=== PATIENT | male | born 1970 | race Two or more races ===

== ENCOUNTER 2023-04-05 20:30 | Inpatient (IN) ==
[2023-04-05 21:12] LABS: Basophils # (auto) 0.02 K/uL (0.00-0.20); Basophils % (auto) 0.2 %; Hematocrit (blood only) 41.4 % (42.0-52.0); Hemoglobin 13.4 g/dl (14.0-18.0); Immature Granulocytes # (auto) 0.03 K/uL (0.01-0.20); Immature Granulocytes % (auto) 0.3 %; Lymphocytes # (auto) 2.11 K/uL (1.20-3.40); Lymphocytes % (auto) 22.8 %; Mean Corpuscular Hemoglobin 26.9 pg (25.0-34.0); Mean Corpuscular Hgb Conc 32.4 g/dL (32.0-36.0); Mean Corpuscular Volume 83.1 fL (80.0-100.0); Mean Platelet Volume 9.3 fL (9.4-12.4); Monocytes # (auto) 0.51 K/uL (0.11-0.59); Monocytes % (auto) 5.5 %; Neutrophils # (auto) 6.59 K/uL (1.40-6.50); Neutrophils % (auto) 71.2 %; Platelet Count 356 K/uL (130-400); RDW Coefficient of Variation 15.8 % (11.5-14.5); RDW Standard Deviation 46.8 fL (36.4-46.3); Red Blood Count 4.98 M/uL (4.70-6.10); White Blood Count 9.26 K/ul (4.8-10.8)
[2023-04-05 21:16] LABS: Appearance Urine Clear (Clear); Bacteria Urine Automated Negative (Negative); Bilirubin Urine Negative (Negative); Blood Urine Trace (Negative); Color Urine Yellow; Epithelial Cell Urine Auto 0-5 /lpf (0-5); Glucose Urine UA 2+ (Negative); Ketones Urine 1+ (Negative); Leukocyte Esterase Urine Negative (Negative); Nitrite Urine Negative (Negative); Protein Urine 1+ (Negative); RBC Urine Automated 0-4 /hpf (0-4); Urobilinogen Urine Negative (Negative)
[2023-04-05 21:47] LABS: Amphetamines+Metham, Urine Neg (Neg); Barbiturates, Urine Neg (Neg); Benzodiazepine, Urine Neg (Neg); Cocaine, Urine Neg (Neg); MDMA (Ecstacy), Urine Neg (Neg); Marijuana, Urine Neg (Neg); Methadone, Urine Neg (Neg); Opiate, Urine Neg (Neg); Phencyclidine, Urine Neg (Neg)
[2023-04-05 21:48] LABS: Acetaminophen < 3 ug/ml (10-30); Salicylate < 3.0 mg/dl (3.0-30)
[2023-04-05] MEDS: NICOTINE 21 MG/24 HR TDSY TD STA (21:50)
[2023-04-05 21:56] LABS: Albumin Globulin Ratio 1.4 (0.9-2); Albumin Level 4.6 gm/dl (3.4-5.0); BUN Creatinine Ratio 7.7 (10-20); Bilirubin,Total 0.5 mg/dl (0.2-1.0); Calcium 9.7 mg/dl (8.6-10.3); Creatinine Clr Calc Pharmacy 102.4 ml/min; Est GFR (African American) 119.4 ml/min; Est GFR (Non-African American) 103.1 ml/min; Globulin 3.2 gm/dl (2.5-4.0); Thyroid Stimulating Hormone 0.418 uIu/ml (0.300-4.500); Total Protein 7.8 gm/dl (6.0-8.3)
[2023-04-05 22:03] LABS: Potassium 4.3 mmol/L (3.5-5.1)
--- NOTE | 2023-04-05 22:44 | Emergency Department Note ---
Impression & Plan Alcohol intoxication, Alcohol withdrawal, Acute hyponatremia ED Provider Note HISTORY OF PRESENT ILLNESS: Patient is a 52-year-old male presenting with depression and alcohol withdrawal. 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 He has not taken anything for his depression. He states that he also feels like he is withdrawing from alcohol. He states he drinks a 12 pack a day. His last attempt at sobriety was in January 2023. He denies any history of withdrawal seizures. He feels like he is withdrawing secondary to feeling nauseous and having tremors. He reports his last drink was yesterday. ROS: as above PHYSICAL EXAM: Constitutional: Patient appears in no acute distress. Patient smells of alcohol. He is answering questions in full and complete sentences, but does have intermittent slurring of his words HENT: Head: Normocephalic and atraumatic. Eyes: EOMI, PERRL Mouth/Throat: Mucous membranes moist. Neck: Trachea midline. Neck supple. Cardiovascular: Tachycardic with regular rhythm. No murmurs, rubs or gallops. Intact distal pulses. Pulmonary/Chest: No respiratory distress. Breath sounds clear and equal bilaterally. No wheezes or rales. Abdominal: Abdomen soft, no tenderness, rebound or guarding. Musculoskeletal: No edema, tenderness or deformity noted. Skin: Warm and dry. No rash, erythema, pallor or cyanosis Psychiatric: Appropriate mood and affect for situation. Neurological: Alert and keenly responsive. CN II-XII grossly intact, moving all extremities equally and fully. MDM: - Vitals signs showed tachycardia - History obtained via patient. Patient presents with depression and alcohol withdrawal. 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 He has not taken anything for his depression. He states that he feels like he is withdrawing from alcohol. He states he drinks a 12 pack a day. Last attempt at sobriety was in January 2023. He denies any history of withdrawal seizures. However, he reports he feels very nauseous and shaky at this moment. He reports his last drink was yesterday - Chronic conditions affecting care: HTN; diabetes; alcoholism - Differential diagnoses include, but are not limited to: Alcohol intoxication; drug intoxication; electrolyte abnormality; UTI; depression - Order placed for continuous cardiac monitoring. At this time, monitor showed rate of 110 bpm with normal sinus rhythm, per my interpretation. - External medical records reviewed. - Laboratory workup interpreted by myself showed normal WBC; hyponatremia (Na 129 - likely secondary to alcoholism); elevated anion gap (21); hyperglycemia (glucose 250); elevated AST; negative salicylate, acetaminophen level; elevated ethanol level (283.5) - Patient's alcohol withdrawal severity score was a 4 on arrival. He was significantly tachycardic. Given 500 cc of fluid. Repeat alcohol severity score was up to an 8 and patient complaining of significant withdrawal and feeling nauseous. He was given 1 mg of IV Ativan and 4 mg of IV Zofran. He was also given a nicotine patch given his history of smoking a pack a day - UA negative for infection - UDS negative - COVID negative - Patient is not actively suicidal or homicidal at this time. I did discuss results with the patient. He reports that he would like to get sober. He has not attempted outpatient sobriety yet. However, given that the patient's ethanol level is significantly elevated and he is already required Ativan for withdrawal symptoms, believe that inpatient detox would be appropriate. Patient was agreeable to this plan. - Discussion was had with resident care supervisor about patient's case and need for admission - Hospitalist consulted for admission - [facility] ASSESSMENT AND PLAN: Diagnosis: Alcohol intoxication; alcohol withdrawal; hyponatremia Plan: Admit Past Med/Surg History Social History Smoking Status: Former smoker Allergies Allergies Allergy/AdvReac Type Severity Reaction Status Date / Time No Known Allergies Allergy Unverified 04/05/23 21:51 Home Meds Home Medications Medication Instructions Recorded Confirmed lisinopril 40 mg tablet 40 mg PO BID 04/05/23 04/05/23 metformin 1,000 mg PO BID 04/05/23 04/05/23 Results & Data (ED) Vital Signs Vital Signs - 24 hr 04/05/23 20:45 04/05/23 20:51 04/05/23 21:00 Temperature 37.3 C Temperature Source Oral Pulse Rate 110 H 112 H 116 H Pulse Rate [Apical] Pulse Rate from SpO2 Sensor 111 H 114 H Respiratory Rate 20 18 26 H Respiratory Effort / Characteristics Non-Labored Spontaneous Respiratory Depth Normal Respiratory Pattern Regular Blood Pressure 130/86 Blood Pressure [Left Arm] Blood Pressure Mean 100 Blood Pressure Mean [Left Arm] Pulse Oximetry 92 95 98 Oxygen Delivery Method Room Air Sepsis Recent Fever Within 48 Hours No Sepsis New/Unexplained Change in Mental Status No Sepsis Action Taken by Nursing No Action Required 04/05/23 21:04 04/05/23 21:30 04/05/23 22:00 Temperature Temperature Source Pulse Rate 114 H 114 H 114 H Pulse Rate [Apical] Pulse Rate from SpO2 Sensor 114 H Respiratory Rate 17 17 Respiratory Effort / Characteristics Respiratory Depth Respiratory Pattern Blood Pressure Blood Pressure [Left Arm] Blood Pressure Mean Blood Pressure Mean [Left Arm] Pulse Oximetry 89 L Oxygen Delivery Method Sepsis Recent Fever Within 48 Hours Sepsis New/Unexplained Change in Mental Status Sepsis Action Taken by Nursing 04/05/23 22:30 04/05/23 23:00 04/05/23 23:30 Temperature 37.1 C Temperature Source Oral Pulse Rate 107 H 119 H Pulse Rate [Apical] 112 H Pulse Rate from SpO2 Sensor Respiratory Rate 18 19 22 Respiratory Effort / Characteristics Respiratory Depth Respiratory Pattern Blood Pressure 135/89 Blood Pressure [Left Arm] 149/102 H Blood Pressure Mean 104 Blood Pressure Mean [Left Arm] 117 Pulse Oximetry 96 98 Oxygen Delivery Method Room Air Room Air Sepsis Recent Fever Within 48 Hours Sepsis New/Unexplained Change in Mental Status Sepsis Action Taken by Nursing 04/06/23 00:00 04/06/23 01:47 04/06/23 02:00 Temperature Temperature Source Pulse Rate 108 H Pulse Rate [Apical] 105 H 103 H Pulse Rate from SpO2 Sensor Respiratory Rate 20 16 Respiratory Effort / Characteristics Respiratory Depth Respiratory Pattern Blood Pressure Blood Pressure [Left Arm] 138/97 112/89 Blood Pressure Mean Blood Pressure Mean [Left Arm] 110 96 Pulse Oximetry 100 91 Oxygen Delivery Method Room Air Room Air Sepsis Recent Fever Within 48 Hours Sepsis New/Unexplained Change in Mental Status Sepsis Action Taken by Nursing Laboratory Data 04/05/23 20:50 04/05/23 20:50 Lab Results 04/05/23 04/05/23 04/05/23 Range/Units 20:40 20:50 Unknown WBC 9.26 (4.8-10.8) K/ul RBC 4.98 (4.70-6.10) M/uL Hgb 13.4 L (14.0-18.0) g/dl Hct 41.4 L (42.0-52.0) % MCV 83.1 (80.0-100.0) fL MCH 26.9 (25.0-34.0) pg MCHC 32.4 (32.0-36.0) g/dL RDW Std Deviation 46.8 H (36.4-46.3) fL RDW Coeff of Genevieve 15.8 H (11.5-14.5) % Plt Count 356 (130-400) K/uL MPV 9.3 L (9.4-12.4) fL Immature Gran % (Auto) 0.3 % Neut % (Auto) 71.2 % Lymph % (Auto) 22.8 % [place] % (Auto) 5.5 % Eos % (Auto) 0.0 % Baso % (Auto) 0.2 % Neut # (Auto) 6.59 H (1.40-6.50) K/uL Lymph # (Auto) 2.11 (1.20-3.40) K/uL [place] # (Auto) 0.51 (0.11-0.59) K/uL Eos # (Auto) 0.00 (0.00-0.50) K/uL Baso # (Auto) 0.02 (0.00-0.20) K/uL Immature Gran # (Auto) 0.03 (0.01-0.20) K/uL Sodium 129 L (136-145) mmol/L Potassium 4.3 (3.5-5.1) mmol/L Chloride 87 L (98-107) mmol/L Carbon Dioxide 21 (21-32) mmol/L Anion Gap 21 H (3-11) BUN 6 (6-23) mg/dl Creatinine 0.78 (0.6-1.4) mg/dl Est Cr Clr Drug Dosing 102.4 ml/min Est GFR ( Amer) 119.4 ml/min Est GFR (Non-Af Amer) 103.1 ml/min BUN/Creatinine Ratio 7.7 L (10-20) Glucose 250 H (70-99(Fasting)) mg/dl Calcium 9.7 (8.6-10.3) mg/dl Total Bilirubin 0.5 (0.2-1.0) mg/dl AST 40 H (13-39) U/L ALT 44 (7-52) U/L Alkaline Phosphatase 52 (34-104) U/L Total Protein 7.8 (6.0-8.3) gm/dl Albumin 4.6 (3.4-5.0) gm/dl Globulin 3.2 (2.5-4.0) gm/dl Albumin/Globulin Ratio 1.4 (0.9-2) TSH 0.418 (0.300-4.500) uIu/ml Urine Color Yellow Urine Appearance Clear (Clear) Urine pH 5.0 (4.5-7.5) Ur Specific [place] 1.010 (1.000-1.030) Urine Protein 1+ H (Negative) Urine Glucose (UA) 2+ H (Negative) Urine Ketones 1+ H (Negative) Urine Blood Trace H (Negative) Urine Nitrite Negative (Negative) Urine Bilirubin Negative (Negative) Urine Urobilinogen Negative (Negative) Ur Leukocyte Esterase Negative (Negative) Urine WBC (Auto) 1-5 (0-5) /hpf Urine RBC (Auto) 0-4 (0-4) /hpf U Hyaline Cast (Auto) 1-5 (0-5) /lpf U Epithel Cells (Auto) 0-5 (0-5) /lpf Urine Bacteria (Auto) Negative (Negative) Salicylates < 3.0 L (3.0-30) mg/dl Urine Opiates Screen Neg (Neg) Ur Methadone, Qual Neg (Neg) Acetaminophen < 3 L (10-30) ug/ml Urine Barbiturates Neg (Neg) Ur Phencyclidine (PCP) Neg (Neg) U Amphetamin/Meth Scrn Neg (Neg) MDMA (Ecstasy) Screen Neg (Neg) U Benzodiazepines Scrn Neg (Neg) Ur Cocaine Metabolite Neg (Neg) U Marijuana (THC) Screen Neg (Neg) Ethyl Alcohol mg/dL 283.5 H (<10.0) mg/dl SARS-CoV-2, RNA, NAAT NEGATIVE (NEGATIVE) Administered Medications Discontinued Medications Sodium Chloride (Nss) 500 mls @ 999 mls/hr IV .Q31M ONE Stop: 04/05/23 23:37 Last Infusion: 04/05/23 23:56 Dose: Infused Documented By: Admin: 04/05/23 23:20 Dose: 999 mls/hr Documented By: TRINO Lorazepam 1 mg/ Syringe 1 mls @ 2 mls/min IV ONE PRN; Protocol PRN Reason: EtoH Withdrawal AWSS 6-10 Last Admin: 04/05/23 23:55 Dose: 2 mls/min Documented By: AN Lorazepam (Lorazepam 1 Mg/1 Ml Syr Ed Inj Use) Confirm Administered Dose 1 mg .ROUTE .STK-MED ONE Stop: 04/05/23 23:54 Last Admin: 04/05/23 23:56 Dose: Not Given Documented By: AN Nicotine (Nicotine 21 Mg/24 Hr Tdsy) 21 mg TD NOW STA Stop: 04/05/23 21:05 Last Admin: 04/05/23 21:50 Dose: 21 mg Documented By: CELESTE Ondansetron HCl (Ondansetron Inj 2 Mg/Ml 2 Ml Vial) 4 mg IV NOW STA Stop: 04/05/23 23:48 Last Admin: 04/05/23 23:55 Dose: 4 mg Documented By: AN Discharge Plan Visit Data Chief Complaint: Mental Health Evaluation Stated Complaint: DEPRESSION/EMOTIONAL/ALCOHOL USE ED Provider: Haleigh Caballero Discharge Problem: Alcohol intoxication, Alcohol withdrawal, Acute hyponatremia Forms Stand Alone Forms: [facility], Suicide Prevention Resources Prescriptions Prescriptions: No Action lisinopril 40 mg Tablet 40 mg PO BID metformin 1,000 mg PO BID Referrals Referrals: PCP,NO [Primary Care Provider] -
[2023-04-05] MEDS: SODIUM CHLORIDE 0.9% 500 ML IV ONE (23:20)
[2023-04-05] MEDS: ONDANSETRON INJ 2 MG/ML 2 ML VIAL IV STA (23:55)
[2023-04-05] MEDS: LORazepam 1 MG in SYRINGE 0.5 ML IV PRN (23:55)
[2023-04-05] MEDS: LORazepam 1 MG/1 ML SYR ED Inj Use ONE (23:56)
[2023-04-06 03:04] LABS: Magnesium 1.8 mg/dl (1.7-2.4)
[2023-04-06 03:05] LABS: INR 0.9 (0.9-1.1)
--- NOTE | 2023-04-06 03:21 | History & Physical Report ---
Date of Service April 06, 2023 Assessment & Plan (1) Alcohol withdrawal: Plan: HTN, stable Hyponatremia in the setting of alcohol abuse and high lisinopril home dose, unknown duration Anemia, unknown duration, patient unaware of prior issues DM2 insulin requiring, unknown baseline control mood disorder, patient admits to severe depression not currently on maintenance medications, denies suicidality ongoing tobacco abuse Medical telemetry ANASTASIA S, DT precautions Hyponatremia workup hold VERONICA inhibitor for now Anemia workup Basal bolus insulin, ISS BG goal 1 10-1 40, carb count coverage, check hemoglobin A1c Psych consult re: severe depression Nicotine patch DVT prophylaxis. SCDs for now until GI bleed ruled out with Hemoccult given heartburn symptoms Full code Text document was generated using [employer] voice recognition software. It may contain grammatical or spelling errors. Kindly contact undersigned for clarification of any documentation item in question. History of Present Illness Chief Complaint: Depression, alcohol withdrawal Primary Care Provider: NO PCP History obtained from patient and records. Medical history significant for HTN, DM2 insulin requiring, mood disorder, ongoing tobacco/alcohol abuse. 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 Patient cannot recall PCP name from [place], [place]. Patient has been in [place] for a week now because his truck was being serviced. Patient has been battling depression since [place] after family stressors. Denies suicidality. Drinks alcohol to forget. Patient's truck broke down in town yesterday. He walked 2 miles to a nearby gas station. EMS summoned the gas station because patient needed help for depression and alcohol withdrawal. Patient denies headache, SOB, abdominal pain, black/bloody stools, hematuria symptoms. Chest pain symptoms described as heartburn experienced at the ER. No prior history of alcohol withdrawal seizures. 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 Allergies Allergy/AdvReac Type Severity Reaction Status Date / Time No Known Allergies Allergy Unverified 04/05/23 21:51 Home Medications Medication Instructions Recorded Confirmed Type lisinopril 40 mg tablet 40 mg PO BID 04/05/23 04/05/23 History metformin 1,000 mg PO BID 04/05/23 04/05/23 History Past Med/Surg History Social History Smoking Status: Current every day smoker Tobacco Type: Cigarettes Cigarettes Per Day: 1 ppd; Do You Dip or Chew Tobacco: No; Hx Alcohol Use: Yes Alcohol type: beer Hx Substance Use: No Preferred Language: Luxembourgish Communication Ability: Effective Integrated Pest Management Technician Required: No Beliefs That Will Affect Care: Quaker Quaker Beliefs: Pentecostalism Current Living Situation: Other Current Living Situation Comment: Resides in his truck as 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 Other Information That Helps Us Care for You: No Feels Safe at Home: Yes Safety Concerns: Feels Safe At This Time Review of Systems Review of Systems: As per HPI, all other systems reviewed and negative Physical Exam Physical Exam: GENERAL: Slightly anxious, tremulous, no respiratory distress SKIN: Pallor, warm HEENT: Partial alopecia, pale palpebral conjunctivae, no ptosis, dry buccal mucosa NECK : Supple, no tenderness CHEST : CTA, no tenderness HEART : Tachycardic, no obvious murmurs ABDOMEN: Some distention, nontender RECTAL : Refused EXTREMITIES : No LE swelling/tenderness, no other conspicuous deformities noted NEUROLOGIC : Coherent, no facial asymmetry, tremulous Results & Data Results & Data Vital Signs (Past 12 Hours) Vital Signs Temp Pulse Pulse Resp BP BP Pulse Ox 04/06/23 02:00 103 H 16 112/89 91 04/06/23 01:47 108 H 04/06/23 00:00 105 H 20 138/97 100 04/05/23 23:30 37.1 C 112 H 22 149/102 H 98 04/05/23 23:00 119 H 19 135/89 96 04/05/23 22:30 107 H 18 04/05/23 22:00 114 H 17 04/05/23 21:30 114 H 17 89 L 04/05/23 21:04 114 H 04/05/23 21:00 116 H 26 H 98 04/05/23 20:51 112 H 18 95 04/05/23 20:45 37.3 C 110 H 20 130/86 92 O2 Del Method 04/06/23 02:00 Room Air 04/06/23 01:47 04/06/23 00:00 Room Air 04/05/23 23:30 Room Air 04/05/23 23:00 Room Air 04/05/23 22:30 04/05/23 22:00 04/05/23 21:30 04/05/23 21:04 02/09/24 21:00 04/05/23 20:51 04/05/23 20:45 Room Air Laboratory Results Laboratory Results WBC 9.26 K/ul (4.8-10.8) 04/05/23 20:50 RBC 4.98 M/uL (4.70-6.10) 04/05/23 20:50 Hgb 13.4 g/dl (14.0-18.0) L 04/05/23 20:50 Hct 41.4 % (42.0-52.0) L 04/05/23 20:50 MCV 83.1 fL (80.0-100.0) 04/05/23 20:50 MCH 26.9 pg (25.0-34.0) 04/05/23 20:50 MCHC 32.4 g/dL (32.0-36.0) 04/05/23 20:50 RDW Std Deviation 46.8 fL (36.4-46.3) H 04/05/23 20:50 RDW Coeff of Genevieve 15.8 % (11.5-14.5) H 04/05/23 20:50 Plt Count 356 K/uL (130-400) 04/05/23 20:50 MPV 9.3 fL (9.4-12.4) L 04/05/23 20:50 Immature Gran % (Auto) 0.3 % 04/05/23 20:50 Neut % (Auto) 71.2 % 04/05/23 20:50 Lymph % (Auto) 22.8 % 04/05/23 20:50 [place] % (Auto) 5.5 % 04/05/23 20:50 Eos % (Auto) 0.0 % 04/05/23 20:50 Baso % (Auto) 0.2 % 04/05/23 20:50 Neut # (Auto) 6.59 K/uL (1.40-6.50) H 04/05/23 20:50 Lymph # (Auto) 2.11 K/uL (1.20-3.40) 04/05/23 20:50 [place] # (Auto) 0.51 K/uL (0.11-0.59) 04/05/23 20:50 Eos # (Auto) 0.00 K/uL (0.00-0.50) 04/05/23 20:50 Baso # (Auto) 0.02 K/uL (0.00-0.20) 04/05/23 20:50 Immature Gran # (Auto) 0.03 K/uL (0.01-0.20) 04/05/23 20:50 PT 10.0 Seconds (9.0-12.0) 04/05/23 20:50 INR 0.9 (0.9-1.1) 04/05/23 20:50 Sodium 129 mmol/L (136-145) L 04/05/23 20:50 Potassium 4.3 mmol/L (3.5-5.1) 04/05/23 20:50 Chloride 87 mmol/L (98-107) L 04/05/23 20:50 Carbon Dioxide 21 mmol/L (21-32) 04/05/23 20:50 Anion Gap 21 (3-11) H 04/05/23 20:50 BUN 6 mg/dl (6-23) 04/05/23 20:50 Creatinine 0.78 mg/dl (0.6-1.4) 04/05/23 20:50 Est Cr Clr Drug Dosing 102.4 ml/min 04/05/23 20:50 Est GFR ( Amer) 119.4 ml/min 04/05/23 20:50 Est GFR (Non-Af Amer) 103.1 ml/min 04/05/23 20:50 BUN/Creatinine Ratio 7.7 (10-20) L 04/05/23 20:50 Glucose 250 mg/dl (70-99(Fasting)) H 04/05/23 20:50 Calcium 9.7 mg/dl (8.6-10.3) 04/05/23 20:50 Magnesium 1.8 mg/dl (1.7-2.4) 04/05/23 20:50 Total Bilirubin 0.5 mg/dl (0.2-1.0) 04/05/23 20:50 AST 40 U/L (13-39) H 04/05/23 20:50 ALT 44 U/L (7-52) 04/05/23 20:50 Alkaline Phosphatase 52 U/L (34-104) 04/05/23 20:50 Total Protein 7.8 gm/dl (6.0-8.3) 04/05/23 20:50 Albumin 4.6 gm/dl (3.4-5.0) 04/05/23 20:50 Globulin 3.2 gm/dl (2.5-4.0) 04/05/23 20:50 Albumin/Globulin Ratio 1.4 (0.9-2) 04/05/23 20:50 TSH 0.418 uIu/ml (0.300-4.500) 04/05/23 20:50 Urine Color Yellow 04/05/23 20:40 Urine Appearance Clear (Clear) 04/05/23 20:40 Urine pH 5.0 (4.5-7.5) 04/05/23 20:40 Ur Specific [place] 1.010 (1.000-1.030) 04/05/23 20:40 Urine Protein 1+ (Negative) H 04/05/23 20:40 Urine Glucose (UA) 2+ (Negative) H 04/05/23 20:40 Urine Ketones 1+ (Negative) H 04/05/23 20:40 Urine Blood Trace (Negative) H 04/05/23 20:40 Urine Nitrite Negative (Negative) 04/05/23 20:40 Urine Bilirubin Negative (Negative) 04/05/23 20:40 Urine Urobilinogen Negative (Negative) 04/05/23 20:40 Ur Leukocyte Esterase Negative (Negative) 04/05/23 20:40 Urine WBC (Auto) 1-5 /hpf (0-5) 04/05/23 20:40 Urine RBC (Auto) 0-4 /hpf (0-4) 04/05/23 20:40 U Hyaline Cast (Auto) 1-5 /lpf (0-5) 04/05/23 20:40 U Epithel Cells (Auto) 0-5 /lpf (0-5) 04/05/23 20:40 Urine Bacteria (Auto) Negative (Negative) 04/05/23 20:40 Ur Random Sodium 21 mmol/L 04/05/23 20:40 Salicylates < 3.0 mg/dl (3.0-30) L 04/05/23 20:50 Urine Opiates Screen Neg (Neg) 04/05/23 20:40 Ur Methadone, Qual Neg (Neg) 04/05/23 20:40 Acetaminophen < 3 ug/ml (10-30) L 04/05/23 20:50 Urine Barbiturates Neg (Neg) 04/05/23 20:40 Ur Phencyclidine (PCP) Neg (Neg) 04/05/23 20:40 U Amphetamin/Meth Scrn Neg (Neg) 04/05/23 20:40 MDMA (Ecstasy) Screen Neg (Neg) 04/05/23 20:40 U Benzodiazepines Scrn Neg (Neg) 04/05/23 20:40 Ur Cocaine Metabolite Neg (Neg) 04/05/23 20:40 U Marijuana (THC) Screen Neg (Neg) 04/05/23 20:40 Ethyl Alcohol mg/dL 283.5 mg/dl (<10.0) H 04/05/23 20:50 SARS-CoV-2, RNA, NAAT NEGATIVE (NEGATIVE) 04/05/23 Unknown Diagnostic Findings Chest x-ray as per my interpretation borderline cardiomegaly EKG as per my interpretation : Rate 110, sinus tachycardia, normal axis, no ischemia
[2023-04-06] MEDS ORDERED: GLUCAGON FOR INJ 1 MG VIAL SQ PRN (03:24)
[2023-04-06] MEDS ORDERED: LORazepam 2 MG in SYRINGE 1 ML IV PRN (03:24)
[2023-04-06] MEDS ORDERED: LORazepam 3 MG in SYRINGE 1.5 ML IV PRN (03:24)
[2023-04-06] MEDS ORDERED: GABAPENTIN 1200MG ALCOHOL WITHDRAWAL LOAD PO STA (03:24)
[2023-04-06] MEDS ORDERED: Ativan IV Alcohol Withdrawal--Active Protocol IV PRN (03:24)
[2023-04-06] MEDS ORDERED: GLUCOSE 10 TAB/TUBE PO PRN (03:24)
[2023-04-06] MEDS ORDERED: GLUCOSE 40% GEL 15 GM TUBE PO PRN (03:24)
[2023-04-06] MEDS ORDERED: DEXTROSE 50% 50 ML SYRINGE IV PRN (03:24)
[2023-04-06] MEDS ORDERED: CARBOHYDRATES FOR HYPOGLYCEMIA PO PRN (03:24)
[2023-04-06] MEDS ORDERED: PROMETHAZINE HCL 6.25 MG in SODIUM CHLORIDE 0.9% 50 ML IV PRN (03:27)
[2023-04-06] MEDS: THIAMINE HCL 100 MG in SYRINGE 9 ML IV STA (03:39)
[2023-04-06] MEDS: FAMOTIDINE 20MG IV PUSH 20 MG/5 ML SYR IV STA (03:39)
[2023-04-06] MEDS: GABAPENTIN 600 MG TAB PO STA (03:40)
[2023-04-06] MEDS: LANTUS PER UNIT CHARGE SQ STA ×2 (04:53→09:51)
[2023-04-06] MEDS: MAGNESIUM SULFATE / D5W 1 GM/100 ML BAG IV STA (04:53)
[2023-04-06 05:04] LABS: Basophils # (auto) 0.03 K/uL (0.00-0.20); Basophils % (auto) 0.4 %; Eosinophils # (auto) 0.02 K/uL (0.00-0.50); Eosinophils % (auto) 0.2 %; Hematocrit (blood only) 39.5 % (42.0-52.0); Hemoglobin 12.9 g/dl (14.0-18.0); Immature Granulocytes # (auto) 0.03 K/uL (0.01-0.20); Immature Granulocytes % (auto) 0.4 %; Lymphocytes % (auto) 29.6 %; Mean Corpuscular Hemoglobin 27.1 pg (25.0-34.0); Mean Corpuscular Hgb Conc 32.7 g/dL (32.0-36.0); Mean Platelet Volume 9.5 fL (9.4-12.4); Monocytes # (auto) 0.55 K/uL (0.11-0.59); Monocytes % (auto) 6.5 %; Neutrophils # (auto) 5.31 K/uL (1.40-6.50); Neutrophils % (auto) 62.9 %; Platelet Count 326 K/uL (130-400); RDW Coefficient of Variation 15.8 % (11.5-14.5); RDW Standard Deviation 46.7 fL (36.4-46.3); Red Blood Count 4.76 M/uL (4.70-6.10); Reticulocyte % 1.66 % (0.50-2.00); White Blood Count 8.44 K/ul (4.8-10.8)
[2023-04-06 05:18] LABS: Albumin Globulin Ratio 1.5 (0.9-2); Albumin Level 4.1 gm/dl (3.4-5.0); BUN Creatinine Ratio 7.8 (10-20); Bilirubin,Total 0.5 mg/dl (0.2-1.0); Creatinine Clr Calc Pharmacy 103.7 ml/min; Est GFR (African American) 120.1 ml/min; Est GFR (Non-African American) 103.6 ml/min; Globulin 2.7 gm/dl (2.5-4.0); Potassium 4.3 mmol/L (3.5-5.1); Total Protein 6.8 gm/dl (6.0-8.3)
[2023-04-06 05:29] LABS: INR 0.9 (0.9-1.1); Prothrombin Time 10.1 Seconds (9.0-12.0)
[2023-04-06 05:37] LABS: Ferritin 101.6 ng/ml (8-388)
[2023-04-06 06:00] LABS: Folate (Folic Acid),Ser orPlas 12.91 ng/ml (>5.38)
--- NOTE | 2023-04-06 07:04 | XRay Report ---
SINGLE VIEW CHEST CLINICAL HISTORY: Hyponatremia. FINDINGS: 2 AP, portable, upright chest radiographs are obtained. No prior studies are available for comparison at the time of dictation. The examination is degraded by portable technique and patient ro tation. The cardiomediastinal silhouette is top normal for projection. There is mild elevation of th e right hemidiaphragm. The lungs and pleural spaces are clear. No pneumothorax is seen. The bony thor ax is grossly intact. Calcific tendinopathy is noted in the right shoulder. IMPRESSION: No active disease in the chest. ACT 112: Negative or not required by law. Electronically signed by: Darrell Ardon M.D. 04/06/2023 7:03 AM
[2023-04-06 07:32] LABS: Estimated Average Glucose 346 mg/dl; Hemoglobin A1C 13.7 % (4.5-5.6)
[2023-04-06] MEDS ORDERED: PHARMACY GLYCEMIC MGMT CONSULT PRN (08:37)
--- NOTE | 2023-04-06 09:20 | Pharmacy Report ---
Pharmacy Glycemic Short Note 2 - Date of Service April 06, 2023 - Glycemic Short BSG Results (Last 24 hours): 04/05/23 04/06/23 04/06/23 20:50 04:32 04:35 Glucose 250 H 199 H POC Glucose 199 H 04/06/23 08:21 Glucose POC Glucose 176 H OUTPATIENT ANTIDIABETIC REGIMEN: * Unknown, med list has metformin 1000 mg PO BIDM. H&P states "DM2 insulin requiring". * HbA1c: 13.7% (04/05/23) * A1c elevation to this extent leads me to believe non-compliance with any DM meds. ASSESSMENT: * 52 yo M admitted on 04/05/23 secondary to alcohol withdrawal and severe depression. Pharmacy has been consulted to assist with inpatient glycemic management. Patient is a Type 2 diabetic as an outpatient. Please refer to outpatient regimen and most recent HbA1c above. * Serum BSG in ED was 250 mg/dL. AM serum was 199 mg/dL. POC was 199 mg/dL as well at 0435. Patient received 5 units of Lantus at that time. * AM POC was 176 mg/dL at 0821. Will give an additional 10 units of basal now for total daily dose of 15 units today (~0.2 units/kg). Will reassess basal in AM. * Novolog to start based on weight/stress of 2-3. Patient is insulin naive and this regimen is aggressive so may need to back off this afternoon. Does not appear to be any plans to receive contrast at this time so will also start Metformin XR 1 g PO daily with breakfast today. Patient will require insulin at discharge and unsure of requirements for CDL and uncontrolled diabetes. PLAN FOR INPATIENT GLYCEMIC CONTROL: * Metformin XR 1000 mg PO daily with breakfast * If patient is to receive contrast at any point during admission, please HOLD Metformin and call pharmacy at [phone] * Basal insulin * Lantus 15 (5+10) units SC this AM * Reassess basal in AM * Bolus insulin * NovoLog per scale ACHS or Q6hrs while NPO * Goal Range: Low 110 mg/dL - High 140 mg/dL * Correction Factor: 25 mg/dL/unit * Nutritional / Prandial insulin per carb ratio of 1 unit per 8 grams CHO c onsumed
[2023-04-06] MEDS: amLODIPine BESYLATE 5 MG TAB PO SCH (09:37)
[2023-04-06] MEDS: MULTIVITAMIN TAB PO SCH (09:38)
[2023-04-06] MEDS: FAMOTIDINE 20 MG TAB PO SCH (09:39)
[2023-04-06] MEDS: GABAPENTIN 600 MG TAB PO SCH ×2 (09:40→23:58)
[2023-04-06] MEDS: LORazepam 1 MG in SYRINGE 0.5 ML IV PRN (09:44)
[2023-04-06] MEDS: NICOTINE 21 MG/24 HR TDSY TD SCH (09:47)
[2023-04-06] MEDS: INSULIN ASPART PER UNIT CHARGE SC SCH (09:49)
[2023-04-06] MEDS: LORazepam 1 MG/1 ML SYR ED Inj Use ONE (09:55)
[2023-04-06] MEDS: metFORMIN HCL ER 500 MG TABCR PO SCH (09:56)
[2023-04-06] MEDS: FOLIC ACID 1 MG TAB PO SCH (10:43)
--- NOTE | 2023-04-06 11:47 | Electrocardiogram Report ---
Test Reason : Blood Pressure : / mmHG Vent. Rate : 112 BPM Atrial Rate : 112 BPM P-R Int : 136 ms QRS Dur : 090 ms QT Int : 328 ms P-R-T Axes : 050 054 032 degrees QTc Int : 447 ms Sinus tachycardia Otherwise normal ECG No previous ECGs available Confirmed by Chrsi Crespo ([id number]) on 04/06/2023 11:46:28 AM Referred By: REFERRED SELF Confirmed By:Prabhu Crespo
--- NOTE | 2023-04-06 12:34 | Hospitalist Progress Note ---
Date of Service April 06, 2023 Assessment & Plan (1) Alcohol withdrawal: Plan: Alcohol withdrawal Alcohol abuse disorder Alcohol level: 283 Tox Screen: negative LFTs within normal limits Monitor for withdrawal seizure/fall precautions Alcohol withdrawal protocol with gabapentin, Ativan PRN Continue thiamine, folic acid Counseled to quit drinking Will benefit from drug rehab placement Hypertensive urgency Likely due to alcohol withdrawal Continue lisinopril Added amlodipine Clonidine as needed Monitor BP Hyponatremia Likely due to alcohol use Unknown baseline Sodium 131 today Monitor Hypochloremia Mild anion gap metabolic acidosis Likely due to alcohol abuse Monitor BMP daily Uncontrolled DM II HbA1c 13.7 Hold metformin Utilize insulin while hospitalized Glycemic pharmacist consulted assistant health educator consulted as well Monitor BGs Normocytic anemia 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 GERD Started on Pepcid DVT Px: SCDs for now Code Status Full code Admission and Anticipated Discharge Date Admission Date: April 06, 2023 Subjective Patient is seen and examined at bedside Reports having nausea and vomiting earlier today Also states having transient chest discomfort earlier today which resolved Minimal cough Denies any dyspnea, abdominal pain dizziness Admits to being depressed Review of Systems Review of Systems: All systems reviewed & are unremarkable except as noted in Subjective Physical Exam Physical Exam: Physical Exam: Vitals signs as noted above General Appearance:Moderately built and nourished, no apparent distress, + anxious Head: normocephalic, Atraumatic Eyes: normal inspection, EOMI Neck: supple, Trachea midline Respiratory/Chest: Normal breath sounds, CTA, No accessory muscle use Cardiovascular: S1, S2, No murmur, +Tachycardia Abdomen/GI:Soft, Non tender, Bowel sounds present Extremities/Musculoskeletal:normal inspection, no edema,+Tremor Neurologic/Psych:AAOX3, grossly no focal neurological deficits Skin: normal color, warm Results & Data Results & Data Vital Signs (Past 12 Hours) Vital Signs Pulse Pulse Resp BP BP Pulse Ox Pulse Ox 04/06/23 10:30 110 H 19 155/104 H 96 04/06/23 10:00 107 H 17 137/91 92 04/06/23 09:30 103 H 19 156/107 H 92 04/06/23 09:00 103 H 20 162/105 H 92 04/06/23 08:30 110 H 19 144/99 H 93 02/10/24 08:00 106 H 9 L 139/97 04/06/23 08:00 93 04/06/23 07:30 102 H 19 144/95 H 97 04/06/23 07:27 103 H 04/06/23 07:00 104 H 19 144/100 H 85 L 04/06/23 06:30 105 H 17 147/102 H 92 04/06/23 06:00 92 H 14 165/108 H 04/06/23 05:31 104 H 19 144/86 H 04/06/23 05:30 106 H 18 04/06/23 05:17 105 H 19 139/95 97 04/06/23 05:00 107 H 19 139/95 04/06/23 04:30 110 H 18 144/94 H 04/06/23 04:00 138/94 04/06/23 04:00 107 H 20 138/94 93 04/06/23 02:30 125/91 04/06/23 02:30 108 H 19 93 04/06/23 02:00 106 H 19 90 04/06/23 02:00 112/89 04/06/23 02:00 103 H 16 112/89 91 04/06/23 01:47 108 H 04/06/23 01:30 130/96 04/06/23 01:30 117 H 20 04/06/23 01:00 117 H 19 04/06/23 01:00 94/72 L 04/06/23 00:30 116 H 21 04/06/23 00:30 124/90 O2 Del Method O2 Del Method 04/06/23 10:30 04/06/23 10:00 04/06/23 09:30 04/06/23 09:00 04/06/23 08:30 04/06/23 08:00 04/06/23 08:00 Room Air 04/06/23 07:30 04/06/23 07:27 04/06/23 07:00 04/06/23 06:30 04/06/23 06:00 04/06/23 05:31 04/06/23 05:30 04/06/23 05:17 Room Air 04/06/23 05:00 04/06/23 04:30 04/06/23 04:00 04/06/23 04:00 04/06/23 02:30 04/06/23 02:30 04/06/23 02:00 04/06/23 02:00 04/06/23 02:00 Room Air 04/06/23 01:47 04/06/23 01:30 04/06/23 01:30 04/06/23 01:00 04/06/23 01:00 04/06/23 00:30 04/06/23 00:30 Laboratory Results Short CBC 04/05/23 04/06/23 Range/Units 20:50 04:32 WBC 9.26 8.44 (4.8-10.8) K/ul Hgb 13.4 L 12.9 L (14.0-18.0) g/dl Hct 41.4 L 39.5 L (42.0-52.0) % Plt Count 356 326 (130-400) K/uL BMP 04/05/23 04/06/23 20:50 04:32 Sodium 129 L 131 L Potassium 4.3 4.3 Chloride 87 L 95 L Carbon Dioxide 21 20 L BUN 6 6 Creatinine 0.78 0.77 Glucose 250 H 199 H Calcium 9.7 9.0 Liver Function 04/05/23 04/06/23 Range/Units 20:50 04:32 Total Bilirubin 0.5 0.5 (0.2-1.0) mg/dl AST 40 H 30 (13-39) U/L ALT 44 37 (7-52) U/L Alkaline Phosphatase 52 48 (34-104) U/L Albumin 4.6 4.1 (3.4-5.0) gm/dl Urine 04/05/23 Range/Units 20:40 Urine Color Yellow Urine Appearance Clear (Clear) Urine pH 5.0 (4.5-7.5) Ur Specific [place] 1.010 (1.000-1.030) Urine Protein 1+ H (Negative) Urine Glucose (UA) 2+ H (Negative)
[2023-04-06] MEDS: lisinopril 40 MG TAB PO SCH (13:46)
[2023-04-06] MEDS: cloNIDine HCL 0.1 MG TAB PO PRN (16:31)
[2023-04-06] MEDS ORDERED: LANTUS PER UNIT CHARGE SQ SCH (21:00)
[2023-04-07] MEDS: ACETAMINOPHEN 325 MG TAB PO PRN (01:51)
[2023-04-07] MEDS: oxyCODONE HCL IR 5 MG TAB (IMMEDIATE RELEASE) PO PRN (02:27)
[2023-04-07 07:45] LABS: Hematocrit (blood only) 44.1 % (42.0-52.0); Hemoglobin 14.4 g/dl (14.0-18.0); Mean Corpuscular Hemoglobin 27.1 pg (25.0-34.0); Mean Corpuscular Hgb Conc 32.7 g/dL (32.0-36.0); Mean Corpuscular Volume 82.9 fL (80.0-100.0); Mean Platelet Volume 9.2 fL (9.4-12.4); Platelet Count 340 K/uL (130-400); RDW Standard Deviation 47.8 fL (36.4-46.3); Red Blood Count 5.32 M/uL (4.70-6.10); White Blood Count 6.67 K/ul (4.8-10.8)
[2023-04-07 08:01] LABS: BUN Creatinine Ratio 17.2 (10-20); Calcium 9.6 mg/dl (8.6-10.3); Creatinine Clr Calc Pharmacy 85.9 ml/min; Est GFR (African American) 108.2 ml/min; Est GFR (Non-African American) 93.4 ml/min; Potassium 4.1 mmol/L (3.5-5.1)
[2023-04-07] MEDS ORDERED: LANTUS PER UNIT CHARGE SQ SCH (09:00)
[2023-04-07] MEDS: THIAMINE HCL 100 MG in SYRINGE 9 ML IV SCH (09:02)
[2023-04-07] MEDS: LORazepam 0.5 MG TAB PO PRN (09:02)
[2023-04-07] MEDS ORDERED: POLYETHYLENE (MIRALAX) 17 GM PACK PO PRN (10:35)
[2023-04-07] MEDS: POLYETHYLENE (MIRALAX) 17 GM PACK PO ONE (12:27)
[2023-04-07] MEDS: DOCUSATE SODIUM 100 MG CAP PO SCH (12:27)
[2023-04-07] MEDS: LANTUS PER UNIT CHARGE SQ SCH (12:39)
--- NOTE | 2023-04-07 13:50 | Pharmacy Report ---
Pharmacy Glycemic Short Note 2 - Date of Service April 07, 2023 - Glycemic Short BSG Results (Last 24 hours): 04/06/23 04/06/23 04/06/23 17:07 17:08 17:31 Glucose 379 H* POC Glucose 369 H* 455 H* 04/06/23 04/07/23 04/07/23 20:18 07:26 08:07 Glucose 280 H POC Glucose 200 H 300 H 04/07/23 12:09 Glucose POC Glucose 255 H OUTPATIENT ANTIDIABETIC REGIMEN: * Unknown, med list has metformin 1000 mg PO BIDM. H&P states "DM2 insulin requiring". * HbA1c: 13.7% (04/05/23) * A1c elevation to this extent leads me to believe non-compliance with any DM meds. ASSESSMENT: 04/07 * Tal received 42 units of insulin yesterday (15 were basal) * Fasting BSG this AM significantly elevated, will increase basal insulin by 25% today * No glycemic stressors noted at this time. * Novolog tightened to a weight base stress of 3 as BSGs today still elevated. 04/06 * 52 yo M admitted on 04/05/23 secondary to alcohol withdrawal and severe depression. Pharmacy has been consulted to assist with inpatient glycemic management. Patient is a Type 2 diabetic as an outpatient. Please refer to outpatient regimen and most recent HbA1c above. * Serum BSG in ED was 250 mg/dL. AM serum was 199 mg/dL. POC was 199 mg/dL as well at 0435. Patient received 5 units of Lantus at that time. * AM POC was 176 mg/dL at 0821. Will give an additional 10 units of basal now for total daily dose of 15 units today (~0.2 units/kg). Will reassess basal in AM. * Novolog to start based on weight/stress of 2-3. Patient is insulin naive and this regimen is aggressive so may need to back off this afternoon. Does not appear to be any plans to receive contrast at this time so will also start Metformin XR 1 g PO daily with breakfast today. Patient will require insulin at discharge and unsure of requirements for CDL and uncontrolled diabetes. PLAN FOR INPATIENT GLYCEMIC CONTROL: * Metformin XR 1000 mg PO daily with breakfast (currently on hold as of 04/07) * If patient is to receive contrast at any point during admission, please HOLD Metformin and call pharmacy at [phone] * Basal insulin * Lantus 20 units daily * Bolus insulin * NovoLog per scale ACHS or Q6hrs while NPO * Goal Range: Low 110 mg/dL - High 140 mg/dL * Correction Factor: 20 mg/dL/unit * Nutritional / Prandial insulin per carb ratio of 1 unit per 7 grams CHO consumed
--- NOTE | 2023-04-07 14:43 | Hospitalist Progress Note ---
Date of Service April 07, 2023 Assessment & Plan (1) Alcohol withdrawal: Plan: Alcohol withdrawal Alcohol abuse disorder Alcohol level: 283 Tox Screen: negative LFTs within normal limits Monitor for withdrawal seizure/fall precautions Continue gabapentin, Ativan PRN Continue thiamine, folic acid Counseled to quit drinking Will benefit from drug rehab placement Continue alcohol withdrawal protocol Hypertensive urgency Likely due to alcohol withdrawal Continue lisinopril Added amlodipine Clonidine as needed BP much better today Hyponatremia Likely due to alcohol use/hyperglycemia Unknown baseline Sodium 132 today Monitor Hypochloremia Mild anion gap metabolic acidosis Likely due to alcohol abuse Monitor BMP daily Acidosis resolved Uncontrolled DM II HbA1c 13.7 Hold metformin Utilize insulin while hospitalized Glycemic pharmacist consulted school vocational educator consulted as well Monitor BGs Normocytic anemia 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 No obvious bleeding issues Monitor CBC FOBT pending Depression Mood disorder Currently not on any medications Denies suicidal thoughts Psychiatry consulted Ongoing tobacco abuse Counseled to quit smoking Nicotine patch Heartburn Likely has GERD Continue Pepcid DVT Px: SCDs Lovenox SQ Code Status Full code Admission and Anticipated Discharge Date Admission Date: April 06, 2023 Subjective Patient is seen and examined at bedside Reports significant tremor and some anxiety Also reports constipation No other complaints Denies any chest pain, dyspnea, nausea, vomiting, abdominal pain, dizziness Review of Systems Review of Systems: All systems reviewed & are unremarkable except as noted in Subjective Physical Exam Physical Exam: Physical Exam: Vitals signs as noted above General Appearance:Moderately built and nourished, no apparent distress, + anxious Head: normocephalic, Atraumatic Eyes: normal inspection, EOMI Neck: supple, Trachea midline Respiratory/Chest: Normal breath sounds, CTA, No accessory muscle use Cardiovascular: S1, S2, No murmur Abdomen/GI:Soft, Non tender, Bowel sounds present Extremities/Musculoskeletal:normal inspection, no edema,+Tremor Neurologic/Psych:AAOX3, grossly no focal neurological deficits Skin: normal color, warm Results & Data Results & Data Vital Signs (Past 12 Hours) Vital Signs Temp Pulse Pulse Resp BP Pulse Ox O2 Del Method 04/07/23 11:45 37.1 C 91 H 18 116/79 98 Room Air 04/07/23 08:00 79 04/07/23 07:44 37.0 C 113 H 20 125/88 97 Room Air Laboratory Results Short CBC 04/07/23 Range/Units 07:26 WBC 6.67 (4.8-10.8) K/ul Hgb 14.4 (14.0-18.0) g/dl Hct 44.1 (42.0-52.0) % Plt Count 340 (130-400) K/uL BMP 04/06/23 04/07/23 17:31 07:26 Sodium 132 L Potassium 4.1 Chloride 95 L Carbon Dioxide 23 BUN 16 Creatinine 0.93 Glucose 379 H* 280 H Calcium 9.6
[2023-04-08] MEDS: GABAPENTIN 600 MG TAB PO SCH (04:29)
[2023-04-08 07:02] LABS: Hematocrit (blood only) 38.8 % (42.0-52.0); Hemoglobin 12.6 g/dl (14.0-18.0); Mean Corpuscular Hemoglobin 27.3 pg (25.0-34.0); Mean Corpuscular Hgb Conc 32.5 g/dL (32.0-36.0); Mean Platelet Volume 9.8 fL (9.4-12.4); Platelet Count 275 K/uL (130-400); RDW Standard Deviation 48.7 fL (36.4-46.3); Red Blood Count 4.62 M/uL (4.70-6.10); White Blood Count 4.57 K/ul (4.8-10.8)
[2023-04-08 07:16] LABS: BUN Creatinine Ratio 17.6 (10-20); Creatinine Clr Calc Pharmacy 107.9 ml/min; Est GFR (African American) 122.1 ml/min; Est GFR (Non-African American) 105.3 ml/min; Magnesium 1.9 mg/dl (1.7-2.4); Potassium 4.1 mmol/L (3.5-5.1)
[2023-04-08] MEDS: ENOXAPARIN INJ 40 MG/0.4 ML SYR SQ SCH (07:47)
[2023-04-08] MEDS: LANTUS PER UNIT CHARGE SQ SCH ×2 (08:50→21:02)
[2023-04-08] MEDS ORDERED: LANTUS PER UNIT CHARGE SQ SCH (09:00)
--- NOTE | 2023-04-08 09:49 | Pharmacy Report ---
Pharmacy Glycemic Short Note 2 - Date of Service April 08, 2023 - Glycemic Short BSG Results (Last 24 hours): 04/07/23 04/07/23 04/07/23 12:09 17:21 20:16 Glucose POC Glucose 255 H 117 H 284 H 04/08/23 04/08/23 05:57 08:02 Glucose 223 H POC Glucose 296 H OUTPATIENT ANTIDIABETIC REGIMEN: * Unknown, med list has metformin 1000 mg PO BIDM. H&P states "DM2 insulin requiring". * HbA1c: 13.7% (04/05/23) * A1c elevation to this extent leads me to believe non-compliance with any DM meds. ASSESSMENT: 04/08 * Patient received total of 73 units of insulin yesterday, of which 20 units were basal * Fasting BSG 296 mg/dL - will increase to 30 units of basal this AM which will be between weight based stress of 2 and 3 * Continue same novolog for now 04/07 * Tal received 42 units of insulin yesterday (15 were basal) * Fasting BSG this AM significantly elevated, will increase basal insulin by 25% today * No glycemic stressors noted at this time. * Novolog tightened to a weight base stress of 3 as BSGs today still elevated. 04/06 * 52 yo M admitted on 04/05/23 secondary to alcohol withdrawal and severe depression. Pharmacy has been consulted to assist with inpatient glycemic management. Patient is a Type 2 diabetic as an outpatient. Please refer to outpatient regimen and most recent HbA1c above. * Serum BSG in ED was 250 mg/dL. AM serum was 199 mg/dL. POC was 199 mg/dL as well at 0435. Patient received 5 units of Lantus at that time. * AM POC was 176 mg/dL at 0821. Will give an additional 10 units of basal now for total daily dose of 15 units today (~0.2 units/kg). Will reassess basal in AM. * Novolog to start based on weight/stress of 2-3. Patient is insulin naive and this regimen is aggressive so may need to back off this afternoon. Does not appear to be any plans to receive contrast at this time so will also start Metformin XR 1 g PO daily with breakfast today. Patient will require insulin at discharge and unsure of requirements for CDL and uncontrolled diabetes. PLAN FOR INPATIENT GLYCEMIC CONTROL: * Basal insulin * Lantus 30 units daily * Bolus insulin * NovoLog per scale ACHS or Q6hrs while NPO * Goal Range: Low 110 mg/dL - High 140 mg/dL * Correction Factor: 20 mg/dL/unit * Nutritional / Prandial insulin per carb ratio of 1 unit per 7 grams CHO consumed
--- NOTE | 2023-04-08 16:14 | Hospitalist Progress Note ---
Date of Service April 08, 2023 Assessment & Plan (1) Alcohol withdrawal: Plan: Alcohol withdrawal Alcohol abuse disorder Alcohol level: 283 Tox Screen: negative LFTs within normal limits Monitor for withdrawal seizure/fall precautions Continue gabapentin, Ativan PRN Continue thiamine, folic acid Counseled to quit drinking Will benefit from drug rehab placement Continue alcohol withdrawal protocol Clinically improving Hypertensive urgency Likely due to alcohol withdrawal Continue lisinopril Added amlodipine Clonidine as needed BP stable Hyponatremia Likely due to alcohol use/hyperglycemia Unknown baseline Sodium 135 today Monitor Hypochloremia Mild anion gap metabolic acidosis Likely due to alcohol abuse Monitor BMP daily Acidosis resolved Uncontrolled DM II HbA1c 13.7 Hold metformin Was on Lantus 20 units twice daily Utilize insulin while hospitalized Glycemic pharmacist consulted Plan to discharge on Tresiba in place of Lantus consumer educator consulted as well Monitor BGs Normocytic anemia 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 No obvious bleeding issues Monitor CBC Depression Mood disorder Currently not on any medications Denies suicidal thoughts Psychiatry consulted Ongoing tobacco abuse Counseled to quit smoking Nicotine patch Heartburn Likely has GERD Continue Pepcid DVT Px: SCDs Lovenox SQ Code Status Full code Admission and Anticipated Discharge Date Admission Date: April 06, 2023 Subjective Patient is seen and examined at bedside States feeling a lot better today Still has minimal tremor Feels anxious but otherwise no complaints Had bowel movement Denies any chest pain, dyspnea, nausea, vomiting, abdominal pain, dizziness Review of Systems Review of Systems: All systems reviewed & are unremarkable except as noted in Subjective Physical Exam Physical Exam: Physical Exam: Vitals signs as noted above General Appearance:Moderately built and nourished, no apparent distress, + anxious Head: normocephalic, Atraumatic Eyes: normal inspection, EOMI Neck: supple, Trachea midline Respiratory/Chest: Normal breath sounds, CTA, No accessory muscle use Cardiovascular: S1, S2, No murmur Abdomen/GI:Soft, Non tender, Bowel sounds present Extremities/Musculoskeletal:normal inspection, no edema,+Tremor Neurologic/Psych:AAOX3, grossly no focal neurological deficits Skin: normal color, warm Results & Data Results & Data Vital Signs (Past 12 Hours) Vital Signs Temp Pulse Pulse Resp BP Pulse Ox O2 Del Method 04/08/23 15:23 115 H 04/08/23 11:21 36.8 C 111 H 16 124/88 97 Room Air 04/08/23 07:49 36.3 C L 109 H 16 145/104 H 99 Room Air 04/08/23 06:47 85 04/08/23 04:32 36.9 C 74 18 120/78 95 Room Air Laboratory Results Short CBC 04/08/23 Range/Units 05:57 WBC 4.57 L (4.8-10.8) K/ul Hgb 12.6 L (14.0-18.0) g/dl Hct 38.8 L (42.0-52.0) % Plt Count 275 (130-400) K/uL BMP 04/08/23 05:57 Sodium 135 L Potassium 4.1 Chloride 101 Carbon Dioxide 28 BUN 13 Creatinine 0.74 Glucose 223 H Calcium 9.0
[2023-04-09] MEDS: INSULIN ASPART PER UNIT CHARGE SC SCH (00:46)
--- NOTE | 2023-04-09 08:33 | Pharmacy Report ---
Pharmacy Glycemic Short Note 2 - Date of Service April 09, 2023 - Glycemic Short BSG Results (Last 24 hours): 04/08/23 04/08/23 04/08/23 12:16 17:20 20:37 POC Glucose 309 H* 299 H 138 H 04/09/23 04/09/23 00:11 08:20 POC Glucose 301 H* 185 H OUTPATIENT ANTIDIABETIC REGIMEN: * Unknown, med list has metformin 1000 mg PO BIDM. H&P states "DM2 insulin requiring". * HbA1c: 13.7% (04/05/23) * A1c elevation to this extent leads me to believe non-compliance with any DM meds. ASSESSMENT: 04/09 * Patient received total of 103 units of insulin yesterday, of which 30 units were basal * Fasting BSG 185 mg/dl - had overnight check last night and received ~16 units of correctional insulin. Will increase basal to 45 units daily. Plan is to likely discharge on once daily insulin. Anticipate needs to be ~40-50 units daily of basal 04/08 * Patient received total of 73 units of insulin yesterday, of which 20 units were basal * Fasting BSG 296 mg/dL - will increase to 30 units of basal this AM which will be between weight based stress of 2 and 3 * Continue same novolog for now 04/07 * Tal received 42 units of insulin yesterday (15 were basal) * Fasting BSG this AM significantly elevated, will increase basal insulin by 25% today * No glycemic stressors noted at this time. * Novolog tightened to a weight base stress of 3 as BSGs today still elevated. 04/06 * 52 yo M admitted on 04/05/23 secondary to alcohol withdrawal and severe depression. Pharmacy has been consulted to assist with inpatient glycemic management. Patient is a Type 2 diabetic as an outpatient. Please refer to outpatient regimen and most recent HbA1c above. * Serum BSG in ED was 250 mg/dL. AM serum was 199 mg/dL. POC was 199 mg/dL as well at 0435. Patient received 5 units of Lantus at that time. * AM POC was 176 mg/dL at 0821. Will give an additional 10 units of basal now for total daily dose of 15 units today (~0.2 units/kg). Will reassess basal in AM. * Novolog to start based on weight/stress of 2-3. Patient is insulin naive and this regimen is aggressive so may need to back off this afternoon. Does not appear to be any plans to receive contrast at this time so will also start Metformin XR 1 g PO daily with breakfast today. Patient will require insulin at discharge and unsure of requirements for CDL and uncontrolled diabetes. PLAN FOR INPATIENT GLYCEMIC CONTROL: * Basal insulin * Lantus 45 units daily * Bolus insulin * NovoLog per scale ACHS or Q6hrs while NPO * Goal Range: Low 110 mg/dL - High 140 mg/dL * Correction Factor: 15 mg/dL/unit * Nutritional / Prandial insulin per carb ratio of 1 unit per 5 grams CHO consumed
[2023-04-09] MEDS: LANTUS PER UNIT CHARGE SQ SCH (09:44)
[2023-04-09] MEDS: GABAPENTIN 600 MG TAB PO SCH (09:50)
[2023-04-09] MEDS ORDERED: GABAPENTIN 600 MG TAB PO SCH (15:30)
--- NOTE | 2023-04-09 16:02 | Hospitalist Progress Note ---
Date of Service April 09, 2023 Assessment & Plan (1) Alcohol withdrawal: Plan: Alcohol withdrawal Alcohol abuse disorder Alcohol level: 283 Tox Screen: negative LFTs within normal limits Monitor for withdrawal seizure/fall precautions Continue gabapentin, Ativan PRN Continue thiamine, folic acid Counseled to quit drinking Will benefit from drug rehab placement, patient prefers to pursue at home town Continue alcohol withdrawal protocol Likely discharge tomorrow Hypertensive urgency Likely due to alcohol withdrawal BP Variable Continue lisinopril Added amlodipine 5mg daily Clonidine as needed BP stable Hyponatremia Likely due to alcohol use/hyperglycemia Unknown baseline Sodium 135 today Monitor Hypochloremia Mild anion gap metabolic acidosis Likely due to alcohol abuse Monitor BMP daily Acidosis resolved Uncontrolled DM II HbA1c 13.7 Hold metformin Was on Lantus 20 units twice daily Utilize insulin while hospitalized Glycemic pharmacist consulted Plan to discharge on Tresiba in place of Lantus firer watertender consulted as well Monitor BGs Normocytic anemia 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 No obvious bleeding issues Monitor CBC Depression Mood disorder Currently not on any medications Denies suicidal thoughts Psychiatry consulted Ongoing tobacco abuse Counseled to quit smoking Nicotine patch Heartburn Likely has GERD Continue Pepcid DVT Px: SCDs Lovenox SQ Code Status Full code Admission and Anticipated Discharge Date Admission Date: April 06, 2023 Subjective Patient is seen and examined at bedside Less anxious today Offers no new complaints BP variable Denies any chest pain, dyspnea, nausea, vomiting, abdominal pain, dizziness Review of Systems Review of Systems: All systems reviewed & are unremarkable except as noted in Subjective Physical Exam Physical Exam: Physical Exam: Vitals signs as noted above General Appearance:Moderately built and nourished, no apparent distress, + anxious Head: normocephalic, Atraumatic Eyes: normal inspection, EOMI Neck: supple, Trachea midline Respiratory/Chest: Normal breath sounds, CTA, No accessory muscle use Cardiovascular: S1, S2, No murmur Abdomen/GI:Soft, Non tender, Bowel sounds present Extremities/Musculoskeletal:normal inspection, no edema,+Tremor Neurologic/Psych:AAOX3, grossly no focal neurological deficits Skin: normal color, warm Results & Data Results & Data Vital Signs (Past 12 Hours) Vital Signs Temp Pulse Pulse Resp BP Pulse Ox O2 Del Method 04/09/23 15:30 101 H 04/09/23 11:47 36.8 C 90 16 151/93 H 96 Room Air 04/09/23 10:30 61 04/09/23 08:05 36.5 C 63 16 139/93 100 Room Air
[2023-04-09] MEDS: amLODIPine BESYLATE 5 MG TAB PO ONE (20:54)
[2023-04-10 08:14] LABS: Hemoglobin 13.1 g/dl (14.0-18.0); Mean Corpuscular Hemoglobin 26.8 pg (25.0-34.0); Mean Corpuscular Hgb Conc 31.2 g/dL (32.0-36.0); Mean Corpuscular Volume 86.1 fL (80.0-100.0); Mean Platelet Volume 9.8 fL (9.4-12.4); Platelet Count 278 K/uL (130-400); RDW Coefficient of Variation 15.7 % (11.5-14.5); Red Blood Count 4.88 M/uL (4.70-6.10); White Blood Count 6.55 K/ul (4.8-10.8)
[2023-04-10] MEDS: amLODIPine BESYLATE 5 MG TAB PO SCH (08:50)
[2023-04-10 09:26] LABS: Calcium 9.3 mg/dl (8.6-10.3); Potassium 4.1 mmol/L (3.5-5.1)
[2023-04-10 09:32] LABS: BUN Creatinine Ratio 21.3 (10-20); Creatinine Clr Calc Pharmacy 89.7 ml/min; Est GFR (African American) 113.1 ml/min; Est GFR (Non-African American) 97.6 ml/min
--- NOTE | 2023-04-10 11:17 | Pharmacy Report ---
Pharmacy Glycemic Short Note 2 - Date of Service April 10, 2023 - Glycemic Short BSG Results (Last 24 hours): 04/09/23 04/09/23 04/09/23 12:12 17:08 20:15 Glucose POC Glucose 241 H 112 H 207 H 04/10/23 04/10/23 07:51 08:13 Glucose 238 H POC Glucose 264 H OUTPATIENT ANTIDIABETIC REGIMEN: * Unknown, med list has metformin 1000 mg PO BIDM. H&P states "DM2 insulin requiring". * HbA1c: 13.7% (04/05/23) * A1c elevation to this extent leads me to believe non-compliance with any DM meds. ASSESSMENT: 04/10 * Tal received 107 units of insulin yesterday (45 were basal) * Fasting BSG this AM elevated, significant increase in basal yesterday, will continue current regimen and monitor for trends * BSGs elevated yesterday, correcting well, will tighten carbohydrate coverage to attempt to prevent BSG rises. * No glycemic stressors noted at this time. 04/09 * Patient received total of 103 units of insulin yesterday, of which 30 units were basal * Fasting BSG 185 mg/dl - had overnight check last night and received ~16 units of correctional insulin. Will increase basal to 45 units daily. Plan is to likely discharge on once daily insulin. Anticipate needs to be ~40-50 units daily of basal 04/08 * Patient received total of 73 units of insulin yesterday, of which 20 units were basal * Fasting BSG 296 mg/dL - will increase to 30 units of basal this AM which will be between weight based stress of 2 and 3 * Continue same novolog for now 04/07 * Tal received 42 units of insulin yesterday (15 were basal) * Fasting BSG this AM significantly elevated, will increase basal insulin by 25% today * No glycemic stressors noted at this time. * Novolog tightened to a weight base stress of 3 as BSGs today still elevated. 04/06 * 52 yo M admitted on 04/05/23 secondary to alcohol withdrawal and severe depression. Pharmacy has been consulted to assist with inpatient glycemic management. Patient is a Type 2 diabetic as an outpatient. Please refer to outpatient regimen and most recent HbA1c above. * Serum BSG in ED was 250 mg/dL. AM serum was 199 mg/dL. POC was 199 mg/dL as well at 0435. Patient received 5 units of Lantus at that time. * AM POC was 176 mg/dL at 0821. Will give an additional 10 units of basal now for total daily dose of 15 units today (~0.2 units/kg). Will reassess basal in AM. * Novolog to start based on weight/stress of 2-3. Patient is insulin naive and this regimen is aggressive so may need to back off this afternoon. Does not appear to be any plans to receive contrast at this time so will also start Metformin XR 1 g PO daily with breakfast today. Patient will require insulin at discharge and unsure of requirements for CDL and uncontrolled diabetes. PLAN FOR INPATIENT GLYCEMIC CONTROL: * Basal insulin * Lantus 45 units daily * Bolus insulin * NovoLog per scale ACHS or Q6hrs while NPO * Goal Range: Low 110 mg/dL - High 140 mg/dL * Correction Factor: 15 mg/dL/unit * Nutritional / Prandial insulin per carb ratio of 1 unit per 4 grams CHO consumed
--- NOTE | 2023-04-10 11:38 | Hospitalist Progress Note ---
Date of Service April 10, 2023 Assessment & Plan (1) Alcohol withdrawal: Plan: Alcohol withdrawal:Alcohol abuse disorder Alcohol level: 283 Tox Screen: negative LFTs within normal limits seizure/fall precautions Continue gabapentin, Ativan PRN Continue thiamine, folic acid Counseled to quit drinking Will benefit from drug rehab placement, patient prefers to pursue at [place] town Clinically much better with minimal tremors with outstretched hands Has been ambulating in the hallway without any difficulties Waiting for transport to go to [place] following discharge Likely discharge tomorrow-strongly advised to quit drinking Hypertensive urgency Likely due to alcohol withdrawal Continue lisinopril Added amlodipine 5mg daily Clonidine as needed BP stable Hyponatremia Likely due to alcohol use/hyperglycemia Unknown baseline Sodium 135 today Sodium level low as 129 on admission and now it is 134 Hypochloremia Mild anion gap metabolic acidosis Likely due to alcohol abuse Monitor BMP daily Acidosis resolved Uncontrolled DM II HbA1c 13.7 Hold metformin Was on Lantus 20 units twice daily Utilize insulin while hospitalized Glycemic pharmacist consulted Plan to discharge on Tresiba in place of Lantus deputy probation officer consulted as well Monitor BGs Diabetic medications and insulin will be adjusted on discharge Normocytic anemia 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 No obvious bleeding issues Monitor CBC Depression Mood disorder Currently not on any medications Denies suicidal thoughts Psychiatry consulted-appreciate input and recommendation Ongoing tobacco abuse Counseled to quit smoking Nicotine patch Heartburn Likely has GERD Continue Pepcid DVT Px: SCDs Lovenox SQ Code Status Full code Likely discharge tomorrow Admission and Anticipated Discharge Date Admission Date: April 06, 2023 Subjective 04/10/2023 The patient was seen and examined in medical telemetry unit He has been feeling much better and complains to have minimal tremors with outstretched hands Denies any palpitation and has been ambulating without any difficulties Waiting for the transfer to go to [place] Review of Systems Review of Systems: All systems reviewed and are unremarkable except as noted below Physical Exam Physical Exam: Sitting on the bed without any acute distress Constitutional: well developed and well nourished; not ill appearing Eyes: PERRL, conjunctivae normal, anicteric sclerae ENMT: external ear and nose normal, oropharynx normal Neck: trachea midline, no thyromegaly Respiratory: no respiratory distress Auscultation: lungs clear to auscultation bilaterally Cardiovascular: Rate/Rhythm: regular rate and regular rhythm; not tachycardic Heart Sounds: normal S1 and normal S2; no murmur Extremities: no edema Gastrointestinal (Abdomen): Inspection/Auscultation: normal bowel sounds; abdomen not distended Percussion/Palpation: abdomen soft; abdomen nontender Musculoskeletal: No acute arthritis involving any of the joint Neurologic: normal touch/pain/proprioception and moves all extremities; no focal motor deficits Minimal tremors involving the outstretched hands Lymphatic: no cervical or axillary lymphadenopathy Results & Data Results & Data Vital Signs (Past 12 Hours) Vital Signs Temp Pulse Resp BP Pulse Ox O2 Del Method 04/10/23 07:54 36.3 C L 98 H 16 138/99 99 Room Air 04/10/23 04:17 36.7 C 79 18 146/97 H 100 Room Air 04/09/23 23:35 36.5 C 97 H 18 148/95 H 97 Room Air Laboratory Results Short CBC 04/10/23 Range/Units 07:51 WBC 6.55 (4.8-10.8) K/ul Hgb 13.1 L (14.0-18.0) g/dl Hct 42.0 (42.0-52.0) % Plt Count 278 (130-400) K/uL [facility] 04/10/23 07:51 Sodium 134 L Potassium 4.1 Chloride 101 Carbon Dioxide 26 BUN 19 Creatinine 0.89 Glucose 238 H Calcium 9.3 Medications Administered Current Inpatient Medications Acetaminophen (Acetaminophen 325 Mg Tab) 650 mg PO Q4H PRN PRN Reason: Pain or Fever Stop: 05/06/23 04:11 Last Admin: 04/07/23 01:51 Dose: 650 mg Amlodipine Besylate (Amlodipine Besylate 5 Mg Tab) 5 mg PO QAM [facility] Stop: 05/10/23 08:59 Last Admin: 04/10/23 08:50 Dose: 5 mg Clonidine HCl (Clonidine Hcl 0.1 Mg Tab) 0.1 mg PO Q8H PRN PRN Reason: Hypertension SBP>180orDBP>100 Stop: 05/06/23 08:33 Last Admin: 04/06/23 16:31 Dose: 0.1 mg Dextrose (Dextrose 50% 50 Ml Syringe) 25 - 50 ml IV UD PRN; Protocol PRN Reason: Hypoglycemia Protocol Stop: 05/06/23 03:23 Docusate Sodium (Docusate Sodium 100 Mg Cap) 100 mg PO BID [facility] Stop: 05/07/23 10:44 Last Admin: 04/10/23 08:51 Dose: Not Given Enoxaparin Sodium (Enoxaparin Inj 40 Mg/0.4 Ml Syr) [facility] Stop: 05/08/23 08:59 Last Admin: 04/10/23 08:51 Dose: 40 mg Famotidine (Famotidine 20 Mg Tab) 20 mg PO BID [facility] Stop: 05/06/23 08:59 Last Admin: 04/10/23 08:50 Dose: 20 mg Folic Acid (Folic Acid 1 Mg Tab) 1 mg PO QAM [facility] Stop: 05/06/23 08:59 Last Admin: 04/10/23 08:50 Dose: 1 mg Glucagon (Glucagon For Inj 1 Mg Vial) 1 mg SQ UD PRN; Protocol PRN Reason: Hypoglycemia Protocol Stop: 05/06/23 03:23 Glucose (Glucose 10 Tab/Tube) 4 - 8 tab PO UD PRN; Protocol PRN Reason: Hypoglycemia Treatment Stop: 05/06/23 03:23 Glucose (Glucose 40% Gel 15 Gm Tube) 15 - 30 gm PO UD PRN; Protocol PRN Reason: Hypoglycemia Protocol Stop: 05/06/23 03:23 Thiamine HCl 100 mg/ Syringe 10 mls @ 2 mls/min IV [facility] Stop: 05/07/23 08:59 Last Admin: 04/10/23 08:50 Dose: 2 mls/min Lorazepam 1 mg/ Syringe 1 mls @ 2 mls/min IV UD PRN; Protocol PRN Reason: EtOH Withdrawal AWSS Score 6,7 Stop: 05/06/23 03:23 Last Admin: 04/08/23 07:43 Dose: 2 mls/min Lorazepam 2 mg/ Syringe 2 mls @ 2 mls/min IV UD PRN; Protocol PRN Reason: EtOH Withdrawal AWSS Score 8,9 Stop: 05/06/23 03:23 Lorazepam 3 mg/ Syringe 3 mls @ 2 mls/min IV ONCE PRN; Protocol PRN Reason: EtOH Withdrawal AWSS Score 10+ Promethazine HCl 6.25 mg/ (Sodium Chloride) 50.25 mls @ 201 mls/hr IV Q6H PRN PRN Reason: Nausea And Vomiting Stop: 05/06/23 03:26 Insulin Aspart (Insulin Aspart Per Unit Charge) 0 units SC [facility]; Protocol Stop: 05/06/23 07:29 Last Admin: 04/10/23 09:00 Dose: 29 units Insulin Glargine (Lantus Per Unit Charge) 45 units SQ DAILY [facility]; Protocol Stop: 05/09/23 08:59 Last Admin: 04/10/23 09:01 Dose: 45 units Lisinopril (Lisinopril 40 Mg Tab) 40 mg PO DAILY [facility] Stop: 05/06/23 12:29 Last Admin: 04/10/23 08:50 Dose: 40 mg Lorazepam (Lorazepam 0.5 Mg Tab) 0.5 mg PO Q8H PRN PRN Reason: Anxiety Stop: 05/07/23 07:44 Last Admin: 04/10/23 09:00 Dose: 0.5 mg Metformin HCl (Metformin Hcl Er 500 Mg Tabcr) 1,000 mg PO QDB [facility]; Protocol Stop: 05/06/23 08:59 Last Admin: 04/06/23 09:56 Dose: Not Given Miscellaneous (Carbohydrates For Hypoglycemia ) 15 - 30 gm PO UD PRN PRN Reason: Hypoglycemia Protocol Stop: 05/06/23 03:23 Miscellaneous (Remove Nicoderm Patch) 1 each N/A DAILY@0859 [facility] Stop: 05/06/23 08:58 Last Admin: 04/10/23 10:56 Dose: 1 each Miscellaneous Information (Pharmacy Glycemic Mgmt Consult) 1 each N/A UD PRN; Protocol PRN Reason: Consult Stop: 05/06/23 08:36 Multivitamins (Multivitamin Tab) 1 tab PO QAM [facility] Stop: 05/06/23 08:59 Last Admin: 04/10/23 08:50 Dose: 1 tab Nicotine (Nicotine 21 Mg/24 Hr Tdsy) 21 mg TD QAM [facility] Stop: 05/06/23 08:59 Last Admin: 04/10/23 10:56 Dose: 21 mg Oxycodone HCl (Oxycodone Hcl Ir 5 Mg Tab (Immediate Release)) 5 mg PO Q4H PRN PRN Reason: Pain Stop: 04/20/23 03:26 Last Admin: 04/07/23 02:27 Dose: 5 mg Polyethylene Glycol (Polyethylene (Miralax) 17 Gm Pack) 17 gm PO DAILY PRN PRN Reason: Constipation Stop: 05/07/23 10:34
[2023-04-11 06:47] LABS: Basophils # (auto) 0.02 K/uL (0.00-0.20); Basophils % (auto) 0.3 %; Eosinophils # (auto) 0.08 K/uL (0.00-0.50); Eosinophils % (auto) 1.1 %; Hematocrit (blood only) 44.9 % (42.0-52.0); Immature Granulocytes # (auto) 0.03 K/uL (0.01-0.20); Immature Granulocytes % (auto) 0.4 %; Lymphocytes % (auto) 31.9 %; Mean Corpuscular Hemoglobin 27.1 pg (25.0-34.0); Mean Corpuscular Hgb Conc 31.2 g/dL (32.0-36.0); Mean Platelet Volume 9.8 fL (9.4-12.4); Monocytes # (auto) 0.71 K/uL (0.11-0.59); Monocytes % (auto) 9.8 %; Neutrophils # (auto) 4.08 K/uL (1.40-6.50); Neutrophils % (auto) 56.5 %; Platelet Count 286 K/uL (130-400); RDW Coefficient of Variation 16.1 % (11.5-14.5); Red Blood Count 5.16 M/uL (4.70-6.10); White Blood Count 7.22 K/ul (4.8-10.8)
[2023-04-11 07:17] LABS: Alanine Aminotransferase 44 U/L (7-52); Albumin Globulin Ratio 1.5 (0.9-2); Albumin Level 4.2 gm/dl (3.4-5.0); Alkaline Phosphatase 43 U/L (34-104); Anion Gap 7 (3-11); BUN Creatinine Ratio 20.4 (10-20); Bilirubin,Total 0.4 mg/dl (0.2-1.0); Blood Urea Nitrogen 19 mg/dl (6-23); Calcium 9.9 mg/dl (8.6-10.3); Carbon Dioxide 25 mmol/L (21-32); Chloride 104 mmol/L (98-107); Creatinine Clr Calc Pharmacy 85.9 ml/min; Est GFR (African American) 108.2 ml/min; Est GFR (Non-African American) 93.4 ml/min; Globulin 2.8 gm/dl (2.5-4.0); Glucose 155 mg/dl (70-99(Fasting)); Phosphorus 5.4 mg/dl (2.5-4.9); Sodium 136 mmol/L (136-145)
[2023-04-11 08:22] LABS: Potassium 4.7 mmol/L (3.5-5.1)
[2023-04-11] MEDS: LANTUS PER UNIT CHARGE SQ SCH (09:15)
--- NOTE | 2023-04-11 12:03 | Hospitalist Progress Note ---
Date of Service April 11, 2023 Assessment & Plan (1) Alcohol withdrawal: Plan: Alcohol withdrawal:Alcohol abuse disorder Alcohol level: 283 Tox Screen: negative LFTs within normal limits seizure/fall precautions Continue gabapentin, Ativan PRN Continue thiamine, folic acid Counseled to quit drinking Will benefit from drug rehab placement, patient prefers to pursue at home town Clinically much better with minimal tremors with outstretched hands Has been ambulating in the hallway without any difficulties Waiting for transport to go to [place] following discharge Remains medically stable with minimal anxiety Has not had a ticket yet to go to [place] by his company He will be discharged as soon as he has a transport to go to [place] Hypertensive urgency Likely due to alcohol withdrawal Continue lisinopril Added amlodipine 5mg daily Clonidine as needed BP stable -blood pressure remains stable Hyponatremia Likely due to alcohol use/hyperglycemia Unknown baseline Sodium 135 today Sodium level low as 129 on admission and now it is 134 Hypochloremia Mild anion gap metabolic acidosis Likely due to alcohol abuse Monitor BMP daily Acidosis resolved Uncontrolled DM II HbA1c 13.7 Hold metformin Was on Lantus 20 units twice daily Utilize insulin while hospitalized Glycemic pharmacist consulted Plan to discharge on Tresiba in place of Lantus clinical nurse educator consulted as well Monitor BGs Diabetic medications and insulin will be adjusted on discharge His blood sugar seems to be controlled Normocytic anemia 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 No obvious bleeding issues Monitor CBC Depression Mood disorder Currently not on any medications Denies suicidal thoughts Psychiatry consulted-appreciate input and recommendation Ongoing tobacco abuse Counseled to quit smoking Nicotine patch Heartburn Likely has GERD Continue Pepcid DVT Px: SCDs Lovenox SQ Code Status Full code Likely discharge tomorrow Admission and Anticipated Discharge Date Admission Date: April 06, 2023 Subjective 04/10/2023 The patient was seen and examined in medical telemetry unit He has been feeling much better and complains to have minimal tremors with outstretched hands Denies any palpitation and has been ambulating without any difficulties Waiting for the transfer to go to [place] 04/11/2023 The patient was seen and examined in medical telemetry unit He has been much better with minimal anxiety Has been ambulating in the hallway without difficulties Minimal tremors involving the outstretched hand Review of Systems Review of Systems: All systems reviewed and are unremarkable except as noted below Physical Exam Physical Exam: Sitting on the bed without any acute distress Constitutional: well developed and well nourished; not ill appearing Eyes: PERRL, conjunctivae normal, anicteric sclerae ENMT: external ear and nose normal, oropharynx normal Neck: trachea midline, no thyromegaly Respiratory: no respiratory distress Auscultation: lungs clear to auscultation bilaterally Cardiovascular: Rate/Rhythm: regular rate and regular rhythm; not tachycardic Heart Sounds: normal S1 and normal S2; no murmur Extremities: no edema Gastrointestinal (Abdomen): Inspection/Auscultation: normal bowel sounds; abdomen not distended Percussion/Palpation: abdomen soft; abdomen nontender Musculoskeletal: No acute arthritis involving any of the joint Neurologic: normal touch/pain/proprioception and moves all extremities; no focal motor deficits Lymphatic: no cervical or axillary lymphadenopathy Results & Data Results & Data Vital Signs (Past 12 Hours) Vital Signs Temp Pulse Pulse Resp BP Pulse Ox O2 Del Method 04/11/23 11:46 37.1 C 104 H 18 120/82 98 Room Air 04/11/23 09:53 117 H 04/11/23 08:09 37.1 C 91 H 18 154/106 H 99 Room Air 04/11/23 03:10 36.4 C L 89 18 123/78 97 Room Air Laboratory Results Short CBC 04/11/23 Range/Units 05:43 WBC 7.22 (4.8-10.8) K/ul Hgb 14.0 (14.0-18.0) g/dl Hct 44.9 (42.0-52.0) % Plt Count 286 (130-400) K/uL BMP 04/11/23 04/11/23 05:43 07:28 Sodium 136 Potassium TNP 4.7 Chloride 104 Carbon Dioxide 25 BUN 19 Creatinine 0.93 Glucose 155 H Calcium 9.9 Liver Function 04/11/23 04/11/23 Range/Units 05:43 07:28 Total Bilirubin 0.4 (0.2-1.0) mg/dl AST TNP 36 ALT 44 (7-52) U/L Alkaline Phosphatase 43 (34-104) U/L Albumin 4.2 (3.4-5.0) gm/dl Medications Administered Current Inpatient Medications Acetaminophen (Acetaminophen 325 Mg Tab) 650 mg PO Q4H PRN PRN Reason: Pain or Fever Stop: 05/06/23 04:11 Last Admin: 04/07/23 01:51 Dose: 650 mg Amlodipine Besylate (Amlodipine Besylate 5 Mg Tab) 5 mg PO QAM [facility] Stop: 05/10/23 08:59 Last Admin: 04/11/23 08:03 Dose: 5 mg Clonidine HCl (Clonidine Hcl 0.1 Mg Tab) 0.1 mg PO Q8H PRN PRN Reason: Hypertension SBP>180orDBP>100 Stop: 05/06/23 08:33 Last Admin: 04/06/23 16:31 Dose: 0.1 mg Dextrose (Dextrose 50% 50 Ml Syringe) 25 - 50 ml IV UD PRN; Protocol PRN Reason: Hypoglycemia Protocol Stop: 05/06/23 03:23 Docusate Sodium (Docusate Sodium 100 Mg Cap) 100 mg PO BID [facility] Stop: 05/07/23 10:44 Last Admin: 04/11/23 08:03 Dose: Not Given Enoxaparin Sodium (Enoxaparin Inj 40 Mg/0.4 Ml Syr) 40 mg SQ QAM [facility] Stop: 05/08/23 08:59 Last Admin: 04/11/23 08:03 Dose: 40 mg Famotidine (Famotidine 20 Mg Tab) 20 mg PO BID [facility] Stop: 05/06/23 08:59 Last Admin: 04/11/23 08:02 Dose: 20 mg Folic Acid (Folic Acid 1 Mg Tab) 1 mg PO QAM [facility] Stop: 05/06/23 08:59 Last Admin: 04/11/23 08:03 Dose: 1 mg Glucagon (Glucagon For Inj 1 Mg Vial) 1 mg SQ UD PRN; Protocol PRN Reason: Hypoglycemia Protocol Stop: 05/06/23 03:23 Glucose (Glucose 10 Tab/Tube) 4 - 8 tab PO UD PRN; Protocol PRN Reason: Hypoglycemia Treatment Stop: 05/06/23 03:23 Glucose (Glucose 40% Gel 15 Gm Tube) 15 - 30 gm PO UD PRN; Protocol PRN Reason: Hypoglycemia Protocol Stop: 05/06/23 03:23 Thiamine HCl 100 mg/ Syringe 10 mls @ 2 mls/min IV QAM [facility] Stop: 05/07/23 08:59 Last Admin: 04/11/23 08:02 Dose: 2 mls/min Lorazepam 1 mg/ Syringe 1 mls @ 2 mls/min IV UD PRN; Protocol PRN Reason: EtOH Withdrawal AWSS Score 6,7 Stop: 05/06/23 03:23 Last Admin: 04/08/23 07:43 Dose: 2 mls/min Lorazepam 2 mg/ Syringe 2 mls @ 2 mls/min IV UD PRN; Protocol PRN Reason: EtOH Withdrawal AWSS Score 8,9 Stop: 05/06/23 03:23 Lorazepam 3 mg/ Syringe 3 mls @ 2 mls/min IV ONCE PRN; Protocol PRN Reason: EtOH Withdrawal AWSS Score 10+ Promethazine HCl 6.25 mg/ (Sodium Chloride) 50.25 mls @ 201 mls/hr IV Q6H PRN PRN Reason: Nausea And Vomiting Stop: 05/06/23 03:26 Insulin Aspart (Insulin Aspart Per Unit Charge) 0 units SC ACHS [facility]; Protocol Stop: 05/06/23 07:29 Last Admin: 04/11/23 09:15 Dose: 13 units Insulin Glargine (Lantus Per Unit Charge) 50 units SQ DAILY [facility]; Protocol Stop: 05/11/23 08:59 Last Admin: 04/11/23 09:15 Dose: 50 units Lisinopril (Lisinopril 40 Mg Tab) 40 mg PO DAILY [facility] Stop: 05/06/23 12:29 Last Admin: 04/11/23 08:03 Dose: 40 mg Lorazepam (Lorazepam 0.5 Mg Tab) 0.5 mg PO Q8H PRN PRN Reason: Anxiety Stop: 05/07/23 07:44 Last Admin: 04/11/23 09:15 Dose: 0.5 mg Metformin HCl (Metformin Hcl Er 500 Mg Tabcr) 1,000 mg PO QDB [facility]; Protocol Stop: 05/06/23 08:59 Last Admin: 04/06/23 09:56 Dose: Not Given Miscellaneous (Carbohydrates For Hypoglycemia ) 15 - 30 gm PO UD PRN PRN Reason: Hypoglycemia Protocol Stop: 05/06/23 03:23 Miscellaneous (Remove Nicoderm Patch) 1 each N/A DAILY@0859 [facility] Stop: 05/06/23 08:58 Last Admin: 04/11/23 08:05 Dose: 1 each Miscellaneous Information (Pharmacy Glycemic Mgmt Consult) 1 each N/A UD PRN; Protocol PRN Reason: Consult Stop: 05/06/23 08:36 Multivitamins (Multivitamin Tab) 1 tab PO QAM [facility] Stop: 05/06/23 08:59 Last Admin: 04/11/23 08:03 Dose: 1 tab Nicotine (Nicotine 21 Mg/24 Hr Tdsy) 21 mg TD QAM [facility] Stop: 05/06/23 08:59 Last Admin: 04/11/23 09:16 Dose: 21 mg Oxycodone HCl (Oxycodone Hcl Ir 5 Mg Tab (Immediate Release)) 5 mg PO Q4H PRN PRN Reason: Pain Stop: 04/20/23 03:26 Last Admin: 04/07/23 02:27 Dose: 5 mg Polyethylene Glycol (Polyethylene (Miralax) 17 Gm Pack) 17 gm PO DAILY PRN PRN Reason: Constipation Stop: 05/07/23 10:34
--- NOTE | 2023-04-12 10:11 | Hospitalist Progress Note ---
Date of Service April 12, 2023 Assessment & Plan (1) Alcohol withdrawal: Plan: Alcohol withdrawal:Alcohol abuse disorder Alcohol level: 283 Tox Screen: negative LFTs within normal limits seizure/fall precautions Continue gabapentin, Ativan PRN Continue thiamine, folic acid Counseled to quit drinking Will benefit from drug rehab placement, patient prefers to pursue at home town Clinically much better with minimal tremors with outstretched hands Has been ambulating in the hallway without any difficulties Waiting for transport to go to [place] following discharge Remains medically stable with minimal anxiety Has not had a ticket yet to go to [place] by his company He will be discharged as soon as he has a transport to go to [place] Remains medically stable to be discharged Still awaiting for transport to go to [place] He will be discharged this afternoon Hypertensive urgency Likely due to alcohol withdrawal Continue lisinopril Added amlodipine 5mg daily Clonidine as needed BP stable -blood pressure remains stable His blood pressure remains stable Hyponatremia Likely due to alcohol use/hyperglycemia Unknown baseline Sodium 135 today Sodium level low as 129 on admission and now it is 134 Hypochloremia Mild anion gap metabolic acidosis Likely due to alcohol abuse Monitor BMP daily Acidosis resolved Uncontrolled DM II HbA1c 13.7 Hold metformin Was on Lantus 20 units twice daily Utilize insulin while hospitalized Glycemic pharmacist consulted Plan to discharge on Tresiba in place of Lantus distribution district supervisor consulted as well Monitor BGs Diabetic medications and insulin will be adjusted on discharge His blood sugar seems to be controlled Diabetes supplies has been given to him Normocytic anemia 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 No obvious bleeding issues Monitor CBC Depression Mood disorder Currently not on any medications Denies suicidal thoughts Psychiatry consulted-appreciate input and recommendation Ongoing tobacco abuse Counseled to quit smoking Nicotine patch Heartburn Likely has GERD Continue Pepcid DVT Px: SCDs Lovenox SQ Code Status Full code Likely discharge this afternoon Admission and Anticipated Discharge Date Admission Date: April 06, 2023 Subjective 04/10/2023 The patient was seen and examined in medical telemetry unit He has been feeling much better and complains to have minimal tremors with outstretched hands Denies any palpitation and has been ambulating without any difficulties Waiting for the transfer to go to [place] 04/11/2023 The patient was seen and examined in medical telemetry unit He has been much better with minimal anxiety Has been ambulating in the hallway without difficulties Minimal tremors involving the outstretched hand 04/12/2023 The patient was seen and examined in medical floor He has been stable with minimal tremors with outstretched hands He has been ambulating without any difficulties He remains hemodynamically stable and he will be discharged this afternoon Review of Systems Review of Systems: All systems reviewed and are unremarkable except as noted below Physical Exam Physical Exam: Sitting on the bed without any acute distress Constitutional: well developed and well nourished; not ill appearing Eyes: PERRL, conjunctivae normal, anicteric sclerae ENMT: external ear and nose normal, oropharynx normal Neck: trachea midline, no thyromegaly Respiratory: no respiratory distress Auscultation: lungs clear to auscultation bilaterally Cardiovascular: Rate/Rhythm: regular rate and regular rhythm; not tachycardic Heart Sounds: normal S1 and normal S2; no murmur Extremities: no edema Gastrointestinal (Abdomen): Inspection/Auscultation: normal bowel sounds; abdomen not distended Percussion/Palpation: abdomen soft; abdomen nontender Neurologic: normal touch/pain/proprioception and moves all extremities; no focal motor deficits Minimal tremors involving the outstretched hands Lymphatic: no cervical or axillary lymphadenopathy Results & Data Results & Data Vital Signs (Past 12 Hours) Vital Signs Temp Pulse Resp BP Pulse Ox O2 Del Method 04/12/23 07:27 36.9 C 86 18 126/89 98 Room Air 04/11/23 23:27 Room Air 04/11/23 23:23 36.4 C L 95 H 18 122/81 97 Room Air Medications Administered Current Inpatient Medications Acetaminophen (Acetaminophen 325 Mg Tab) 650 mg PO Q4H PRN PRN Reason: Pain or Fever Stop: 05/06/23 04:11 Last Admin: 04/07/23 01:51 Dose: 650 mg Amlodipine Besylate (Amlodipine Besylate 5 Mg Tab) 5 mg PO QAM [facility] Stop: 05/10/23 08:59 Last Admin: 04/11/23 08:03 Dose: 5 mg Clonidine HCl (Clonidine Hcl 0.1 Mg Tab) 0.1 mg PO Q8H PRN PRN Reason: Hypertension SBP>180orDBP>100 Stop: 05/06/23 08:33 Last Admin: 04/06/23 16:31 Dose: 0.1 mg Dextrose (Dextrose 50% 50 Ml Syringe) 25 - 50 ml IV UD PRN; Protocol PRN Reason: Hypoglycemia Protocol Stop: 05/06/23 03:23 Docusate Sodium (Docusate Sodium 100 Mg Cap) 100 mg PO BID [facility] Stop: 05/07/23 10:44 Last Admin: 04/11/23 20:55 Dose: Not Given Enoxaparin Sodium (Enoxaparin Inj 40 Mg/0.4 Ml Syr) 40 mg SQ QAM [facility] Stop: 05/08/23 08:59 Last Admin: 04/11/23 08:03 Dose: 40 mg Famotidine (Famotidine 20 Mg Tab) 20 mg PO BID [facility] Stop: 05/06/23 08:59 Last Admin: 04/11/23 20:55 Dose: 20 mg Folic Acid (Folic Acid 1 Mg Tab) 1 mg PO QAM [facility] Stop: 05/06/23 08:59 Last Admin: 04/11/23 08:03 Dose: 1 mg Glucagon (Glucagon For Inj 1 Mg Vial) 1 mg SQ UD PRN; Protocol PRN Reason: Hypoglycemia Protocol Stop: 05/06/23 03:23 Glucose (Glucose 10 Tab/Tube) 4 - 8 tab PO UD PRN; Protocol PRN Reason: Hypoglycemia Treatment Stop: 05/06/23 03:23 Glucose (Glucose 40% Gel 15 Gm Tube) 15 - 30 gm PO UD PRN; Protocol PRN Reason: Hypoglycemia Protocol Stop: 05/06/23 03:23 Thiamine HCl 100 mg/ Syringe 10 mls @ 2 mls/min IV QAM [facility] Stop: 05/07/23 08:59 Last Admin: 04/12/23 08:57 Dose: 2 mls/min Lorazepam 1 mg/ Syringe 1 mls @ 2 mls/min IV UD PRN; Protocol PRN Reason: EtOH Withdrawal AWSS Score 6,7 Stop: 05/06/23 03:23 Last Admin: 04/08/23 07:43 Dose: 2 mls/min Lorazepam 2 mg/ Syringe 2 mls @ 2 mls/min IV UD PRN; Protocol PRN Reason: EtOH Withdrawal AWSS Score 8,9 Stop: 05/06/23 03:23 Lorazepam 3 mg/ Syringe 3 mls @ 2 mls/min IV ONCE PRN; Protocol PRN Reason: EtOH Withdrawal AWSS Score 10+ Promethazine HCl 6.25 mg/ (Sodium Chloride) 50.25 mls @ 201 mls/hr IV Q6H PRN PRN Reason: Nausea And Vomiting Stop: 05/06/23 03:26 Insulin Aspart (Insulin Aspart Per Unit Charge) 0 units SC ACHS [facility]; Protocol Stop: 05/06/23 07:29 Last Admin: 04/12/23 09:01 Dose: 14 units Insulin Glargine (Lantus Per Unit Charge) 50 units SQ DAILY [facility]; Protocol Stop: 05/11/23 08:59 Last Admin: 04/12/23 09:02 Dose: 50 units Lisinopril (Lisinopril 40 Mg Tab) 40 mg PO DAILY [facility] Stop: 05/06/23 12:29 Last Admin: 04/11/23 08:03 Dose: 40 mg Lorazepam (Lorazepam 0.5 Mg Tab) 0.5 mg PO Q8H PRN PRN Reason: Anxiety Stop: 05/07/23 07:44 Last Admin: 04/11/23 20:55 Dose: 0.5 mg Metformin HCl (Metformin Hcl Er 500 Mg Tabcr) 1,000 mg PO QDB [facility]; Protocol Stop: 05/06/23 08:59 Last Admin: 04/06/23 09:56 Dose: Not Given Miscellaneous (Carbohydrates For Hypoglycemia ) 15 - 30 gm PO UD PRN PRN Reason: Hypoglycemia Protocol Stop: 05/06/23 03:23 Miscellaneous (Remove Nicoderm Patch) 1 each N/A DAILY@0859 [facility] Stop: 05/06/23 08:58 Last Admin: 04/11/23 08:05 Dose: 1 each Miscellaneous Information (Pharmacy Glycemic Mgmt Consult) 1 each N/A UD PRN; Protocol PRN Reason: Consult Stop: 05/06/23 08:36 Multivitamins (Multivitamin Tab) 1 tab PO QAM [facility] Stop: 05/06/23 08:59 Last Admin: 04/11/23 08:03 Dose: 1 tab Nicotine (Nicotine 21 Mg/24 Hr Tdsy) 21 mg TD QAM [facility] Stop: 05/06/23 08:59 Last Admin: 04/11/23 09:16 Dose: 21 mg Oxycodone HCl (Oxycodone Hcl Ir 5 Mg Tab (Immediate Release)) 5 mg PO Q4H PRN PRN Reason: Pain Stop: 04/20/23 03:26 Last Admin: 04/07/23 02:27 Dose: 5 mg Polyethylene Glycol (Polyethylene (Miralax) 17 Gm Pack) 17 gm PO DAILY PRN PRN Reason: Constipation Stop: 05/07/23 10:34
--- NOTE | 2023-04-12 14:09 | Pharmacy Report ---
Pharmacy Glycemic Short Note 2 - Date of Service April 12, 2023 - Glycemic Short BSG Results (Last 24 hours): 04/11/23 04/11/23 04/12/23 17:17 20:44 07:44 POC Glucose 140 H 86 177 H 04/12/23 11:41 POC Glucose 135 H OUTPATIENT ANTIDIABETIC REGIMEN: * Unknown, med list has metformin 1000 mg PO BIDM. H&P states "DM2 insulin requiring". * HbA1c: 13.7% (04/05/23) * A1c elevation to this extent leads me to believe non-compliance with any DM meds. ASSESSMENT: 04/12: * Patient received total 97 units of insulin yesterday; 50 units basal + 47 units bolus. * BSGs yesterday were 274-681-655-86 mg/dl. Fasting BSG today was 177 mg/dl, pre-lunch BSG = 135 mg/dl. * Patient will likely get discharged today or tomorrow and travel to [place]. Machine Maintenance Repairer to provide him with Tresiba on discharge. * Since BSG trended down to 86 mg/dl yesterday at , carb ratio loosened with lunch today. * Considered adding a small dose of Lantus such as 10 units at HS but will hold off since patient to be discharged soon on Tresiba. 04/10 * Tal received 107 units of insulin yesterday (45 were basal) * Fasting BSG this AM elevated, significant increase in basal yesterday, will continue current regimen and monitor for trends * BSGs elevated yesterday, correcting well, will tighten carbohydrate coverage to attempt to prevent BSG rises. * No glycemic stressors noted at this time. 04/09 * Patient received total of 103 units of insulin yesterday, of which 30 units were basal * Fasting BSG 185 mg/dl - had overnight check last night and received ~16 units of correctional insulin. Will increase basal to 45 units daily. Plan is to likely discharge on once daily insulin. Anticipate needs to be ~40-50 units daily of basal 04/08 * Patient received total of 73 units of insulin yesterday, of which 20 units were basal * Fasting BSG 296 mg/dL - will increase to 30 units of basal this AM which will be between weight based stress of 2 and 3 * Continue same novolog for now 04/07 * Tal received 42 units of insulin yesterday (15 were basal) * Fasting BSG this AM significantly elevated, will increase basal insulin by 25% today * No glycemic stressors noted at this time. * Novolog tightened to a weight base stress of 3 as BSGs today still elevated. 04/06 * 52 yo M admitted on 04/05/23 secondary to alcohol withdrawal and severe depression. Pharmacy has been consulted to assist with inpatient glycemic management. Patient is a Type 2 diabetic as an outpatient. Please refer to outpatient regimen and most recent HbA1c above. * Serum BSG in ED was 250 mg/dL. AM serum was 199 mg/dL. POC was 199 mg/dL as well at 0435. Patient received 5 units of Lantus at that time. * AM POC was 176 mg/dL at 0821. Will give an additional 10 units of basal now for total daily dose of 15 units today (~0.2 units/kg). Will reassess basal in AM. * Novolog to start based on weight/stress of 2-3. Patient is insulin naive and this regimen is aggressive so may need to back off this afternoon. Does not appear to be any plans to receive contrast at this time so will also start Metformin XR 1 g PO daily with breakfast today. Patient will require insulin at discharge and unsure of requirements for CDL and uncontrolled diabetes. PLAN FOR INPATIENT GLYCEMIC CONTROL: * Basal insulin * Lantus 50 units daily * Bolus insulin * NovoLog per scale ACHS or Q6hrs while NPO * Goal Range: Low 110 mg/dL - High 140 mg/dL * Correction Factor: 20 mg/dL/unit * Nutritional / Prandial insulin per carb ratio of 1 unit per 5 grams CHO consumed
--- NOTE | 2023-04-13 12:23 | Discharge Summary ---
Discharge Summary Date of Service April 13, 2023 Notes For Next Care Provider Left without being seen Medication Changes From Visit Started on [facility] Admission HPI Per Admitting Provider History obtained from patient and records. Medical history significant for HTN, DM2 insulin requiring, mood disorder, ongoing tobacco/alcohol abuse. 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 Patient cannot recall PCP name from [place], [place]. Patient has been in [place] for a week now because his truck was being serviced. Patient has been battling depression since after family stressors. Denies suicidality. Drinks alcohol to forget. Patient's truck broke down in town yesterday. He walked 2 miles to a nearby gas station. EMS summoned the gas station because patient needed help for depression and alcohol withdrawal. Patient denies headache, SOB, abdominal pain, black/bloody stools, hematuria symptoms. Chest pain symptoms described as heartburn experienced at the ER. No prior history of alcohol withdrawal seizures. 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, batch trucker Admission Exam Per Admitting Provider GENERAL: Slightly anxious, tremulous, no respiratory distress SKIN: Pallor, warm HEENT: Partial alopecia, pale palpebral conjunctivae, no ptosis, dry buccal mucosa NECK : Supple, no tenderness CHEST : CTA, no tenderness HEART : Tachycardic, no obvious murmurs ABDOMEN: Some distention, nontender RECTAL : Refused EXTREMITIES : No LE swelling/tenderness, no other conspicuous deformities noted NEUROLOGIC : Coherent, no facial asymmetry, tremulous Principal Dx & Hospital Course #1 = Principal Diagnosis (1) Alcohol withdrawal: Mr. Simon is a 52 year old gentleman with history significant for HTN, DM2 insulin requiring, mood disorder, ongoing tobacco/alcohol abuse who was admitted to [facility] on 04/06 after truck broke down and patient concerned for withdrawal. Patient completed Gabapentin taper. Course complicated by complex discharge as patient is from [facility], however, was awaiting arrangements to be coordinated by place of work. Per Case management notes on 04/11:" This ANTONY and Dr Jones met with patient at bedside. Explained that he is medically stable to discharge from the hospital. He asked if he can get a drug tox screen for DOT in the hospital. Explained that he needs to go to a specific testing center for DOT, such as [facility]. He states that he is trying to get a new job who is supposed to be paying for a flight for him to get to [place]. He states, "I have nowhere to go and don't have a dollar to my name. My old [employer] company never pad me my last paycheck. I have a bunch of paperwork that needs filled out for this new job.". Explained that he has until tomorrow figure out a plan and provided CM fax # if his company wants to fax the paperwork, it can be printed out and provided to him. He stated again that he has no where to go and asked if he can sleep in the waiting room until the flight is booked. Informed him that CM can provide a list of shelters near by, but he will have to discharge." Discharge was not initially pursed as patient did not have means to roller picker medications. On 04/13 in am, patient left premises without removal of IV site or proper discharge instructions. Patient left without formal evaluation from physician. Discharge Exam Did not see patient prior to absconding AMA Updated Medication List Medication Instructions Recorded Confirmed Type lisinopril 40 mg tablet 40 mg PO DAILY 04/05/23 04/09/23 History metformin 1,000 mg PO BID 04/05/23 04/05/23 History insulin degludec 100 unit/mL (3 40 unit (0.4 mL) subcut DAILY #15 04/08/23 Rx mL) subcutaneous pen (Tresiba mL FlexTouch U-100 insulin) Hospital Stay Data Consultations 04/06/23 02:33 ED Decision to Admit Stat 04/06/23 10:41 Consult Behavioral Health Liaison Routine Pending Results Patient Have Any Pending Studies at Discharge: No Discharge Instructions Given to Patient (Per Discharging Provider) Follow-up with your primary care physician in 1 week --Quit drinking alcohol as advised --Monitor your blood glucose and Blood pressure regularly at home. Discuss with your physician for further adjustment of medications as needed Seek immediate medical attention if your symptoms reoccur or worsen Please take all medications as instructed on discharge list below. Please call if you have any questions or problems. You can reach a [facility] hospitalist on duty at [facility] 24 hours a day by calling [phone] Total Time Total Time Spent Total Time Spent (In Minutes): 35
== END 2023-04-13 10:00 | disposition left against medical advice (07) | DRG 894 ==
LOC: ED 20:30 → OBSVTOIN 04-06 03:23 → EDINP 04-06 03:23 → INTOOBSV 04-06 03:23 → SUATTDRO 04-06 03:23 → 2N 04-06 04:13 → 3W 04-11 23:12

== ENCOUNTER 2023-04-15 22:20 | Inpatient (IN) ==
[2023-04-15 22:53] LABS: Basophils # (auto) 0.02 K/uL (0.00-0.20); Basophils % (auto) 0.2 %; Eosinophils # (auto) 0.04 K/uL (0.00-0.50); Eosinophils % (auto) 0.4 %; Hematocrit (blood only) 45.2 % (42.0-52.0); Hemoglobin 14.5 g/dl (14.0-18.0); Immature Granulocytes # (auto) 0.04 K/uL (0.01-0.20); Immature Granulocytes % (auto) 0.4 %; Lymphocytes # (auto) 2.45 K/uL (1.20-3.40); Lymphocytes % (auto) 25.7 %; Mean Corpuscular Hgb Conc 32.1 g/dL (32.0-36.0); Mean Corpuscular Volume 84.2 fL (80.0-100.0); Mean Platelet Volume 9.1 fL (9.4-12.4); Monocytes # (auto) 0.93 K/uL (0.11-0.59); Monocytes % (auto) 9.7 %; Neutrophils # (auto) 6.06 K/uL (1.40-6.50); Neutrophils % (auto) 63.6 %; Platelet Count 305 K/uL (130-400); RDW Coefficient of Variation 16.1 % (11.5-14.5); Red Blood Count 5.37 M/uL (4.70-6.10); White Blood Count 9.54 K/ul (4.8-10.8)
[2023-04-15 23:03] LABS: Bilirubin,Total 0.5 mg/dl (0.2-1.0); Calcium 9.7 mg/dl (8.6-10.3); Potassium 4.3 mmol/L (3.5-5.1)
[2023-04-15 23:09] LABS: Albumin Globulin Ratio 1.6 (0.9-2); BUN Creatinine Ratio 10.1 (10-20); Creatinine Clr Calc Pharmacy 115.8 ml/min; Est GFR (African American) 125.6 ml/min; Est GFR (Non-African American) 108.4 ml/min; Globulin 3.2 gm/dl (2.5-4.0); Total Protein 8.2 gm/dl (6.0-8.3)
--- NOTE | 2023-04-16 01:00 | Emergency Department Note ---
History of Present Illness General Chief complaint: Alcohol Withdrawal Stated complaint: SEVERE HEART BURN, CHEST PAIN, ALCOHOL WITHDRAWL Time Seen by Provider: 04/16/23 00:44 History of Present Illness Maximum Pain Intensity: 8 This 52-year-old male with a history of alcohol abuse presents to the ER who was recently discharged complaining of chest and abdominal pain has been drinking alcohol. Patient has fever, chills, cough, congestion, vomiting, diarrhea, radiating pain. He states it feels like gas. Patient is laying on the ground in the sub wait. Home Medications Medication Instructions Recorded Confirmed Type lisinopril 40 mg tablet 40 mg PO DAILY 04/05/23 04/16/23 History insulin degludec 100 unit/mL (3 40 unit (0.4 mL) subcut DAILY #15 04/08/23 04/16/23 Rx mL) subcutaneous pen (Tresiba mL FlexTouch U-100 insulin) metformin 1,000 mg tablet 1,000 mg PO BIDWMEAL 04/16/23 04/16/23 History Allergies Allergy/AdvReac Type Severity Reaction Status Date / Time Fish Containing Products AdvReac Verified 04/10/23 11:57 Past Med/Surg History Social History Smoking Status: Current every day smoker Tobacco Type: Cigarettes Cigarettes Per Day: 1 ppd; Do You Dip or Chew Tobacco: No; Hx Alcohol Use: Yes Alcohol type: beer Hx Substance Use: No Preferred Language: Maori Communication Ability: Effective Jig Grinder Set Up Operator Required: No Beliefs That Will Affect Care: Sabianism Sabianism Beliefs: Mormon Current Living Situation: Other Current Living Situation Comment: 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 Feels Safe at Home: Yes Assistive Devices: None Review of Systems A total of 10 systems reviewed and were otherwise negative Physical Exam Vital Signs Vital Signs - 24 hr 04/15/23 22:21 04/16/23 02:04 04/16/23 02:23 Temperature 36.7 C Temperature Source Temporal Artery Scan Pulse Rate 107 H 97 H Pulse Rate [Apical] 97 H Respiratory Rate 20 15 Respiratory Effort / Characteristics Non-Labored Spontaneous Respiratory Depth Normal Normal Respiratory Pattern Regular Blood Pressure 169/117 H Blood Pressure [Left Arm] 119/80 Blood Pressure Mean 134 Blood Pressure Mean [Left Arm] 93 Blood Pressure Position [Left Arm] Lying Pulse Oximetry 98 96 Oxygen Delivery Method Room Air Room Air Sepsis Recent Fever Within 48 Hours No Sepsis New/Unexplained Change in Mental Status No Sepsis Action Taken by Nursing No Action Required VITALS: Vitals are noted on the nurse's note and reviewed by myself. Vital signs stable. GENERAL: Male, in no acute distress, nondiaphoretic, well-developed well- nourished. SKIN: Capillary reflex less than 2 seconds. HEENT: Normocephalic. PERRLA. EOMI. Nares patent. Mucous membranes moist. Neck is supple without nuchal rigidity. HEART: Regular rate and rhythm LUNGS: Clear to auscultation bilaterally without wheezes, rales or rhonchi. No retractions or accessory muscle use. ABDOMEN: Positive bowel sounds x 4. Normal tympanic percussion. Soft, tender epigastric region, without masses or organomegaly. Avelar sign negative. No guarding or rebound tenderness. no CVA tenderness MUSCULOSKELETAL: No gross musculoskeletal defects. NEURO: Patient was alert and oriented to person place and time. No focal neurological deficits. Course Administered Medications Discontinued Medications Chlordiazepoxide HCl (Chlordiazepoxide Hcl 25 Mg Cap) 50 mg PO NOW ONE Stop: 04/16/23 01:25 Last Admin: 04/16/23 01:39 Dose: 50 mg Documented By: AURORA Sodium Chloride (Nss) 1,000 mls @ 999 mls/hr IV .Q1H1M ONE Stop: 04/16/23 01:45 Last Infusion: 04/16/23 02:02 Dose: Infused Documented By: Admin: 04/16/23 01:07 Dose: 999 mls/hr Documented By: AURORA Famotidine (Pepcid 20mg Iv Push) 20 mg in 5 mls @ 2.5 mls/min IV NOW STA Stop: 04/16/23 00:46 Last Admin: 04/16/23 01:09 Dose: 2.5 mls/min Documented By: AURORA Pantoprazole Sodium 40 mg/ (Syringe) 10 mls @ 5 mls/min IV NOW ONE Stop: 04/16/23 00:46 Last Admin: 04/16/23 01:18 Dose: 5 mls/min Documented By: AURORA Ioversol (Optiray 320 125ml) 118 ml IV ONCE ONE Stop: 04/16/23 01:52 Last Admin: 02/20/24 01:51 Dose: 118 ml Documented By: ANAYELI Lorazepam (Lorazepam 1 Mg/1 Ml Syr Ed Inj Use) 1 mg IV ONE STA Stop: 04/16/23 01:25 Last Admin: 04/16/23 01:39 Dose: 1 mg Documented By: AURORA Ondansetron HCl (Ondansetron Inj 2 Mg/Ml 2 Ml Vial) 4 mg IV NOW STA Stop: 04/16/23 00:46 Last Admin: 04/16/23 01:09 Dose: 4 mg Documented By: AURORA Medical Decision Making Medical Records Attestation: I reviewed the patient's medical records. Home Medications Current Medication List: was personally reviewed by me Laboratory Data Attestation: I reviewed the patient's lab results. 04/15/23 21:36 04/15/23 21:36 Lab Results 04/15/23 Range/Units 21:36 WBC 9.54 (4.8-10.8) K/ul RBC 5.37 (4.70-6.10) M/uL Hgb 14.5 (14.0-18.0) g/dl Hct 45.2 (42.0-52.0) % MCV 84.2 (80.0-100.0) fL MCH 27.0 (25.0-34.0) pg MCHC 32.1 (32.0-36.0) g/dL RDW Std Deviation 49.0 H (36.4-46.3) fL RDW Coeff of Genevieve 16.1 H (11.5-14.5) % Plt Count 305 (130-400) K/uL MPV 9.1 L (9.4-12.4) fL Immature Gran % (Auto) 0.4 % Neut % (Auto) 63.6 % Lymph % (Auto) 25.7 % Holmes % (Auto) 9.7 % Eos % (Auto) 0.4 % Baso % (Auto) 0.2 % Neut # (Auto) 6.06 (1.40-6.50) K/uL Lymph # (Auto) 2.45 (1.20-3.40) K/uL Holmes # (Auto) 0.93 H (0.11-0.59) K/uL Eos # (Auto) 0.04 (0.00-0.50) K/uL Baso # (Auto) 0.02 (0.00-0.20) K/uL Immature Gran # (Auto) 0.04 (0.01-0.20) K/uL Sodium 130 L (136-145) mmol/L Potassium 4.3 (3.5-5.1) mmol/L Chloride 96 L (98-107) mmol/L Carbon Dioxide 19 L (21-32) mmol/L Anion Gap 15 H (3-11) BUN 7 (6-23) mg/dl Creatinine 0.69 (0.6-1.4) mg/dl Est Cr Clr Drug Dosing 115.8 ml/min Est GFR ( Amer) 125.6 ml/min Est GFR (Non-Af Amer) 108.4 ml/min BUN/Creatinine Ratio 10.1 (10-20) Glucose 56 L (70-99(Fasting)) mg/dl Calcium 9.7 (8.6-10.3) mg/dl Magnesium 2.0 (1.7-2.4) mg/dl Total Bilirubin 0.5 (0.2-1.0) mg/dl AST 35 (13-39) U/L ALT 38 (7-52) U/L Alkaline Phosphatase 55 (34-104) U/L Troponin I High Sens 5.3 (0-20) pg/ml Total Protein 8.2 (6.0-8.3) gm/dl Albumin 5.0 (3.4-5.0) gm/dl Globulin 3.2 (2.5-4.0) gm/dl Albumin/Globulin Ratio 1.6 (0.9-2) Lipase 32 (11-82) U/L Ethyl Alcohol mg/dL 193.0 H (<10.0) mg/dl Imaging Data Attestation: I personally reviewed and interpreted this imaging study as follows: Radiologist's Impression: Abdomen/Pelvis CT 04/16/23 00:55 Exam(s): CT ABDOMEN + PELVIS With Contrast IV Amt: 118 ml opti 320 EXAM: CT Abdomen and Pelvis With Intravenous Contrast CLINICAL HISTORY: Reason for exam: Alcoholic, epigastric pain. TECHNIQUE: Axial computed tomography images of the abdomen and pelvis with intravenous contrast. CTDI is 22.75 mGy and DLP is 706.14 mGy-cm. Automated exposure control was utilized for the study. A dose lowering technique was utilized adhering to the principles of ALARA. CONTRAST: Patient received 118 ml opti 320 of IV contrast COMPARISON: No relevant prior studies available. FINDINGS: Lung bases: Unremarkable. No mass. No consolidation. ABDOMEN: Liver: There is fatty infiltration of the liver. The liver is not enlarged. No focal liver lesion is seen. Gallbladder and bile ducts: Unremarkable. No calcified stones. No ductal dilation. Pancreas: Unremarkable. No mass. No ductal dilation. Spleen: Unremarkable. No splenomegaly. Adrenals: Unremarkable. No mass. Kidneys and ureters: Unremarkable. No solid mass. No hydronephrosis. Stomach and bowel: Bowel loops are nondilated. There is diverticulosis of the colon. No evidence of acute diverticulitis. The appendix is normal. PELVIS: Appendix: See above. Bladder: Unremarkable. No mass. Reproductive: Unremarkable as visualized. ABDOMEN and PELVIS: Intraperitoneal space: Unremarkable. No free air. No significant fluid collection. Bones/joints: Mild degenerative changes in the spine. No fracture or subluxation is seen. Soft tissues: Unremarkable. Vasculature: The abdominal aorta is mildly calcified but nondilated. The portal vein is patent are nondilated measuring 15 mm. Lymph nodes: Unremarkable. No enlarged lymph nodes. IMPRESSION: 1. There is fatty infiltration of the liver. The liver is not enlarged. No focal liver lesion is seen. 2. Bowel loops are nondilated. There is diverticulosis of the colon. No evidence of acute diverticulitis. The appendix is normal. Electronically signed by: iNck Basurto MD 04/16/23 03:17 AM Chest CTA 04/16/23 00:55 Exam(s): CTA CHEST IV Amt: 118 ml opti 320 EXAM: CT Angiography Chest With Intravenous Contrast CLINICAL HISTORY: Reason for exam: PE. TECHNIQUE: Axial computed tomographic angiography images of the chest with intravenous contrast. CTDI is 16.74 mGy and DLP is 783.17 mGy-cm. Automated exposure control was utilized for the study. A dose lowering technique was utilized adhering to the principles of ALARA. MIP reconstructed images were created and reviewed. COMPARISON: No relevant prior studies available. FINDINGS: Pulmonary arteries: The pulmonary arterial tree is well opacified with contrast. No pulmonary embolism is identified. Aorta: The thoracic aorta is nondilated. There is no aneurysm or dissection. Lungs: Unremarkable. No mass. No consolidation. Pleural space: Unremarkable. No significant effusion. No pneumothorax. Heart: Unremarkable. No cardiomegaly. No significant pericardial effusion. No evidence of RV dysfunction. Mediastinum: Mild diffuse circumferential esophageal wall thickening measuring up to 6 mm inferiorly suggesting mild esophagitis. No hiatal hernia seen. No pneumomediastinum. Bones/joints: No acute fracture. No dislocation. Soft tissues: Unremarkable. Lymph nodes: Unremarkable. No enlarged lymph nodes. IMPRESSION: 1. Mild diffuse circumferential esophageal wall thickening measuring up to 6 mm inferiorly suggesting mild esophagitis. No hiatal hernia seen. No pneumomediastinum. 2. The pulmonary arterial tree is well opacified with contrast. No pulmonary embolism is identified. 3. The thoracic aorta is nondilated. There is no aneurysm or dissection. Electronically signed by: Nick Basurto MD 04/16/23 03:19 AM [facility] Narrative Prior records/ancillary studies reviewed. Triage Nursing notes reviewed. Additional history obtained from nursing. The patient's history was concerning for abdominal and chest pain. Differential diagnosis: Etiologies such as cardiac ischemia, pancreatitis, intra-abdominal, aortic dissection, pulmonary embolism, pneumonia, pneumothorax, musculoskeletal, infections, pericarditis, myocarditis, esophageal rupture, gastrointestinal, as well as others were entertained. Physical examination: As above. ER treatment provided: An order was placed for continuous cardiac monitoring. The monitor shows a rate of 60-120 with a sinus rhythm per my interpretation. IV fluids, Pepcid, Protonix, Zofran was ordered On reassessment the patient felt better. Diagnostic interpretation by me: The electrocardiogram was negative for pathologic change. Ordered for chest EKG: Normal sinus, normal intervals, no acute ST-T wave changes. Impression normal sinus rhythm independently interpreted by myself I think arrhythmia is unlikely. EKG shows normal sinus rhythm with no interval abnormalities such as QT prolongation or WPW. There are no findings to suggest Brugada syndrome. Cardiac monitoring in the emergency department reveals no tachycardic or bradycardic dysrhythmia. Hypertrophic cardiomyopathy was considered but there are no clear historical elements pointing toward this. EKG is not suggestive. The QRS voltage is not extremely large and there are no suggestive Q waves. The labs Independently Interpreted by myself revealed neg trop Elevated alcohol Imaging studies: Chest x-ray with no acute consolidation, pneumothorax or free air per my independent interpretation HEART SCORE: Hx: high/mod/low suspicion: 0 ECG: ST depression/nonspecific changes/normal: 0 Age: Greater than 65/45-64/less than 45: 1 Risk factors: (Hypertension, hyperlipidemia, diabetes, coronary disease, tobacco use, cocaine use): 2 Troponin: Greater than 2 times normal limits/1-2 times normal limits/normal: 0 Total: 3 Consultation: A consultation was placed with the hospitalist. The case was discussed and diagnostics were reviewed. The patient was evaluated in the ER for further treatment. Exam and history seem consistent with alcoholism and esophagitis imaging was negative. EKG is nonischemic. First troponin is negative. Patient is requesting rehab. Medicine was consulted and case was discussed. He will be admitted to the medical service. By the evaluation outlined above emergent etiologies such as cardiac ischemia, aortic dissection, pulmonary embolism, pneumonia, pneumothorax, infections, pericarditis, myocarditis, as well as others were deemed relatively unlikely. The pt informed about the findings as listed above. All questions were answered and pleased with the treatment. The chart was completed utilizing [employer] Speech voice recognition software. Grammatical errors, random word insertions, pronoun errors, and incomplete sentences are an occassional consequence of this system due to software limitations, ambient noise, and hardware issues. Any formal questions or concerns about the content, text, or information contained within the body of this dictation should be directly addressed to the physician assistant community manager for clarification. Impression & Plan Alcoholism, Chest pain, Esophagitis Discharge Plan Visit Data Chief Complaint: Alcohol Withdrawal Stated Complaint: SEVERE HEART BURN, CHEST PAIN, ALCOHOL WITHDRAWL ED Provider: Nayeli Denney ED Midlevel Provider: Vicky Gaona Discharge Problem: Alcoholism, Chest pain, Esophagitis Patient Disposition: Being Evaluated by Hospitalist Condition: Good Forms Stand Alone Forms: [facility] Resources Prescriptions Prescriptions: No Action lisinopril 40 mg Tablet 40 mg PO DAILY insulin degludec [Tresiba FlexTouch U-100] 100 unit/mL (3 mL) insulin pen 40 unit subcut DAILY Qty: 15 0RF metformin 1,000 mg Tablet 1,000 mg PO BIDWMEAL Referrals Referrals: PCP,NO [Primary Care Provider] -
[2023-04-16] MEDS: SODIUM CHLORIDE 0.9% 1,000 ML IV ONE (01:07)
[2023-04-16] MEDS: FAMOTIDINE 20MG IV PUSH 20 MG/5 ML SYR IV STA (01:09)
[2023-04-16] MEDS: ONDANSETRON INJ 2 MG/ML 2 ML VIAL IV STA (01:09)
[2023-04-16] MEDS: PANTOprazole 40 MG in SYRINGE 0 ML IV ONE (01:18)
[2023-04-16] MEDS: LORazepam 1 MG/1 ML SYR ED Inj Use IV STA (01:39)
[2023-04-16] MEDS: chlordiazePOXIDE HCl 25 MG CAP PO ONE (01:39)
[2023-04-16] MEDS: OPTIRAY 320 125ml IV ONE (01:51)
[2023-04-16 02:33] LABS: Troponin I High Sensitivity 5.3 pg/ml (0-20)
--- NOTE | 2023-04-16 03:17 | CT Scan Report ---
Exam(s): CT ABDOMEN + PELVIS With Contrast IV Amt: 118 ml opti 320 EXAM: CT Abdomen and Pelvis With Intravenous Contrast CLINICAL HISTORY: Reason for exam: Alcoholic, epigastric pain. TECHNIQUE: Axial computed tomography images of the abdomen and pelvis with intravenous contrast. CTDI is 22.75 mGy and DLP is 706.14 mGy-cm. Automated exposure control was utilized for the study. A dose lowering technique was utilized adhering to the principles of ALARA. CONTRAST: Patient received 118 ml opti 320 of IV contrast COMPARISON: No relevant prior studies available. FINDINGS: Lung bases: Unremarkable. No mass. No consolidation. ABDOMEN: Liver: There is fatty infiltration of the liver. The liver is not enlarged. No focal liver lesion is seen. Gallbladder and bile ducts: Unremarkable. No calcified stones. No ductal dilation. Pancreas: Unremarkable. No mass. No ductal dilation. Spleen: Unremarkable. No splenomegaly. Adrenals: Unremarkable. No mass. Kidneys and ureters: Unremarkable. No solid mass. No hydronephrosis. Stomach and bowel: Bowel loops are nondilated. There is diverticulosis of the colon. No evidence of acute diverticulitis. The appendix is normal. PELVIS: Appendix: See above. Bladder: Unremarkable. No mass. Reproductive: Unremarkable as visualized. ABDOMEN and PELVIS: Intraperitoneal space: Unremarkable. No free air. No significant fluid collection. Bones/joints: Mild degenerative changes in the spine. No fracture or subluxation is seen. Soft tissues: Unremarkable. Vasculature: The abdominal aorta is mildly calcified but nondilated. The portal vein is patent are nondilated measuring 15 mm. Lymph nodes: Unremarkable. No enlarged lymph nodes. IMPRESSION: 1. There is fatty infiltration of the liver. The liver is not enlarged. No focal liver lesion is seen. 2. Bowel loops are nondilated. There is diverticulosis of the colon. No evidence of acute diverticulitis. The appendix is normal. Electronically signed by: Nick Basurto MD 04/16/23 03:17 AM
--- NOTE | 2023-04-16 03:19 | CT Scan Report ---
Exam(s): CTA CHEST IV Amt: 118 ml opti 320 EXAM: CT Angiography Chest With Intravenous Contrast CLINICAL HISTORY: Reason for exam: PE. TECHNIQUE: Axial computed tomographic angiography images of the chest with intravenous contrast. CTDI is 16.74 mGy and DLP is 783.17 mGy-cm. Automated exposure control was utilized for the study. A dose lowering technique was utilized adhering to the principles of ALARA. MIP reconstructed images were created and reviewed. COMPARISON: No relevant prior studies available. FINDINGS: Pulmonary arteries: The pulmonary arterial tree is well opacified with contrast. No pulmonary embolism is identified. Aorta: The thoracic aorta is nondilated. There is no aneurysm or dissection. Lungs: Unremarkable. No mass. No consolidation. Pleural space: Unremarkable. No significant effusion. No pneumothorax. Heart: Unremarkable. No cardiomegaly. No significant pericardial effusion. No evidence of RV dysfunction. Mediastinum: Mild diffuse circumferential esophageal wall thickening measuring up to 6 mm inferiorly suggesting mild esophagitis. No hiatal hernia seen. No pneumomediastinum. Bones/joints: No acute fracture. No dislocation. Soft tissues: Unremarkable. Lymph nodes: Unremarkable. No enlarged lymph nodes. IMPRESSION: 1. Mild diffuse circumferential esophageal wall thickening measuring up to 6 mm inferiorly suggesting mild esophagitis. No hiatal hernia seen. No pneumomediastinum. 2. The pulmonary arterial tree is well opacified with contrast. No pulmonary embolism is identified. 3. The thoracic aorta is nondilated. There is no aneurysm or dissection. Electronically signed by: Nick Basurto MD 04/16/23 03:19 AM
--- NOTE | 2023-04-16 06:45 | XRay Report ---
XR chest 1V portable HISTORY: 52 years-old Male cp acute chest pain COMPARISON: CTA chest of same day TECHNIQUE: PA view the chest FINDINGS: Cardiomediastinal and hilar silhouettes are within normal limits. No pneumothorax, pleural effusion o r airspace consolidation. Bones of the chest appear grossly intact. IMPRESSION: No acute process. ACT 112: Negative or not required by law. The above report was generated using voice recognition software. It may contain grammatical, syntax o r spelling errors. Electronically signed by: Rubio Fong M.D. 04/16/2023 6:43 AM
[2023-04-16] MEDS ORDERED: LORazepam 2 MG in SYRINGE 1 ML IV PRN (06:56)
[2023-04-16] MEDS ORDERED: GLUCOSE 10 TAB/TUBE PO PRN (06:56)
[2023-04-16] MEDS ORDERED: Ativan IV Alcohol Withdrawal--Active Protocol IV PRN (06:56)
[2023-04-16] MEDS ORDERED: NITROGLYCERIN SL 0.4 MG/TAB TAB SL PRN (06:56)
[2023-04-16] MEDS ORDERED: DEXTROSE 50% 50 ML SYRINGE IV PRN (06:56)
[2023-04-16] MEDS ORDERED: GABAPENTIN 1200MG ALCOHOL WITHDRAWAL LOAD PO STA (06:56)
[2023-04-16] MEDS ORDERED: GLUCOSE 40% GEL 15 GM TUBE PO PRN (06:56)
[2023-04-16] MEDS ORDERED: GLUCAGON FOR INJ 1 MG VIAL SQ PRN (06:56)
[2023-04-16] MEDS ORDERED: CARBOHYDRATES FOR HYPOGLYCEMIA PO PRN (06:56)
[2023-04-16] MEDS ORDERED: ACETAMINOPHEN 325 MG TAB PO PRN (06:56)
[2023-04-16] MEDS ORDERED: LORazepam 3 MG in SYRINGE 1.5 ML IV PRN (06:56)
[2023-04-16] MEDS: LORazepam 1 MG in SYRINGE 0.5 ML IV PRN (08:07)
[2023-04-16] MEDS: SODIUM CHLORIDE 0.9% 1,000 ML IV SCH (08:07)
[2023-04-16] MEDS: lisinopril 40 MG TAB PO SCH (08:08)
[2023-04-16] MEDS: FOLIC ACID 1 MG TAB PO SCH (08:08)
[2023-04-16] MEDS: THIAMINE HCL 100 MG TAB PO SCH (08:08)
[2023-04-16] MEDS: ENOXAPARIN INJ 40 MG/0.4 ML SYR SQ SCH (08:09)
[2023-04-16] MEDS: GABAPENTIN 600 MG TAB PO ONE (08:11)
[2023-04-16 08:28] LABS: Basophils # (auto) 0.01 K/uL (0.00-0.20); Basophils % (auto) 0.2 %; Eosinophils # (auto) 0.04 K/uL (0.00-0.50); Eosinophils % (auto) 0.7 %; Hematocrit (blood only) 40.2 % (42.0-52.0); Hemoglobin 12.8 g/dl (14.0-18.0); Immature Granulocytes # (auto) 0.02 K/uL (0.01-0.20); Immature Granulocytes % (auto) 0.4 %; Lymphocytes # (auto) 1.75 K/uL (1.20-3.40); Mean Corpuscular Hemoglobin 26.8 pg (25.0-34.0); Mean Corpuscular Hgb Conc 31.8 g/dL (32.0-36.0); Mean Corpuscular Volume 84.3 fL (80.0-100.0); Mean Platelet Volume 9.3 fL (9.4-12.4); Monocytes # (auto) 0.84 K/uL (0.11-0.59); Monocytes % (auto) 15.4 %; Neutrophils # (auto) 2.81 K/uL (1.40-6.50); Neutrophils % (auto) 51.3 %; Platelet Count 291 K/uL (130-400); RDW Coefficient of Variation 16.1 % (11.5-14.5); RDW Standard Deviation 49.4 fL (36.4-46.3); Red Blood Count 4.77 M/uL (4.70-6.10); White Blood Count 5.47 K/ul (4.8-10.8)
--- NOTE | 2023-04-16 08:45 | History & Physical Report ---
Date of Service April 16, 2023 Assessment & Plan (1) Alcohol intoxication: Plan: 52-year-old male with past med history significant for hypertension, diabetes, mood disorder ongoing alcoholism and tobacco abuse presents with alcohol withdrawal. Patient was recently in the hospital for alcohol withdrawal. He left the hospital without telling anyone. Again he was in the ER same day evening, On April 13, 2023. He was discharged from the ER with the case management helping Lodging and flight for him to go to [place]. Patient states he did not go to [place]. Currently no money to stay in the lodging. Comes again to the ER with alcoholism. States he was drinking 10 beers daily. Yesterday had headache and some runny nose but no longer having it. Denies any chest pain or shortness of breath. No nausea. No abdominal pain. Normal bowel and bladder movements. States has gas in the stomach and burping. Complains of pain in bilateral calfs and feet. Resting comfortably and hemodynamically stable. Alcohol intoxication alcohol withdrawal Alcohol withdrawal with gabapentin protocol and IV Ativan as needed P.o. thiamine and folic acid Close monitor for withdrawals Tobacco abuse needs counseling Hypertension Lisinopril we will monitor Diabetes Continue home long-acting insulin Sliding scale Hold metformin Will monitor Esophagitis On CT scan Will place on Protonix Bilateral lower extremity calf pains Will follow Dopplers DVT prophylaxis Lovenox Disposition telemetry Full code Admission and Anticipated Discharge Date Admission Date: April 16, 2023 History of Present Illness Chief Complaint: Alcoholism Primary Care Provider: NO PCP 52-year-old male with past med history significant for hypertension, diabetes, mood disorder ongoing alcoholism and tobacco abuse presents with alcohol withdrawal. Patient was recently in the hospital for alcohol withdrawal. He left the hospital without telling anyone. Again he was in the ER same day evening, On April 13, 2023. He was discharged from the ER with the case management helping Lodging and flight for him to go to [place]. Patient states he did not go to [place]. Currently no money to stay in the lodging. Comes a gain to the ER with alcoholism. States he was drinking 10 beers daily. Yesterday had headache and some runny nose but no longer having it. Denies any chest pain or shortness of breath. No nausea. No abdominal pain. Normal bowel and bladder movements. States has gas in the stomach and burping. Complains of pain in bilateral calfs and feet. Resting comfortably and hemodynamically stable. Past medical history. As mentioned above Past surgical history. None family history. Diabetes, heart disease, stroke, hypertension, alcoholism. Social history. Ongoing alcoholism. 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 Allergies Allergy/AdvReac Type Severity Reaction Status Date / Time Fish Containing Products AdvReac Verified 04/10/23 11:57 Home Medications Medication Instructions Recorded Confirmed Type lisinopril 40 mg tablet 40 mg PO DAILY 04/05/23 04/16/23 History insulin degludec 100 unit/mL (3 40 unit (0.4 mL) subcut DAILY #15 04/08/23 04/16/23 Rx mL) subcutaneous pen (Tresiba mL FlexTouch U-100 insulin) metformin 1,000 mg tablet 1,000 mg PO BIDWMEAL 04/16/23 04/16/23 History Past Med/Surg History Social History Smoking Status: Current every day smoker Tobacco Type: Cigarettes Cigarettes Per Day: 1 ppd; Do You Dip or Chew Tobacco: No; Hx Alcohol Use: Yes Alcohol type: beer Hx Substance Use: No Preferred Language: Persian Communication Ability: Effective Customer Liaison Required: No Beliefs That Will Affect Care: Presybeterian Presybeterian Beliefs: Bahai Current Living Situation: Other Current Living Situation Comment: 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 Feels Safe at Home: Yes Assistive Devices: None Review of Systems Review of Systems: All systems reviewed & are unremarkable except as noted in HPI & below Physical Exam Physical Exam: General- Not in distress Head- atraumatic Eyes- PERRL. ENT- oropharynx clear Neck- supple, no JVD. Lungs- clear to auscultation no wheezing or crackles. Heart- regular rhythm; no murmur, no gallop. Abdomen- normal bowel sounds, soft, nontender, no distension. Extremities- no pretibial edema, no erythema seen.Lower extremity warm to touch Neuro- alert, oriented PERRL, no facial palsy; no dysarthria; moves extremities. Skin- warm & dry Results & Data Results & Data Vital Signs (Past 12 Hours) Vital Signs Temp Pulse Pulse Resp BP BP Pulse Ox 04/16/23 07:45 96 H 04/16/23 06:43 37.2 C 102 H 16 138/100 95 04/16/23 05:37 93 H 18 119/85 94 04/16/23 05:36 95 H 18 111/79 96 04/16/23 03:10 87 15 94 04/16/23 02:50 98 H 15 96 04/16/23 02:23 97 H 16 97 04/16/23 02:23 97 H 04/16/23 02:04 97 H 15 119/80 96 04/15/23 22:21 36.7 C 107 H 20 169/117 H 98 O2 Del Method 04/16/23 07:45 04/16/23 06:43 Room Air 04/16/23 05:37 Room Air 04/16/23 05:36 Room Air 04/16/23 03:10 Room Air 04/16/23 02:50 Room Air 04/16/23 02:23 Room Air 04/16/23 02:23 04/16/23 02:04 Room Air 04/15/23 22:21 Room Air Diagnostic Findings Laboratory Results WBC 5.47 K/ul (4.8-10.8) 04/16/23 07:40 RBC 4.77 M/uL (4.70-6.10) 04/16/23 07:40 Hgb 12.8 g/dl (14.0-18.0) L 04/16/23 07:40 Hct 40.2 % (42.0-52.0) L 04/16/23 07:40 MCV 84.3 fL (80.0-100.0) 04/16/23 07:40 MCH 26.8 pg (25.0-34.0) 04/16/23 07:40 MCHC 31.8 g/dL (32.0-36.0) L 04/16/23 07:40 RDW Std Deviation 49.4 fL (36.4-46.3) H 04/16/23 07:40 RDW Coeff of Genevieve 16.1 % (11.5-14.5) H 04/16/23 07:40 Plt Count 291 K/uL (130-400) 04/16/23 07:40 MPV 9.3 fL (9.4-12.4) L 04/16/23 07:40 Immature Gran % (Auto) 0.4 % 04/16/23 07:40 Neut % (Auto) 51.3 % 04/16/23 07:40 Lymph % (Auto) 32.0 % 04/16/23 07:40 Guadalupe % (Auto) 15.4 % 04/16/23 07:40 Eos % (Auto) 0.7 % 04/16/23 07:40 Baso % (Auto) 0.2 % 04/16/23 07:40 Neut # (Auto) 2.81 K/uL (1.40-6.50) 04/16/23 07:40 Lymph # (Auto) 1.75 K/uL (1.20-3.40) 04/16/23 07:40 Guadalupe # (Auto) 0.84 K/uL (0.11-0.59) H 04/16/23 07:40 Eos # (Auto) 0.04 K/uL (0.00-0.50) 04/16/23 07:40 Baso # (Auto) 0.01 K/uL (0.00-0.20) 04/16/23 07:40 Immature Gran # (Auto) 0.02 K/uL (0.01-0.20) 04/16/23 07:40 Sodium 130 mmol/L (136-145) L 04/15/23 21:36 Potassium 4.3 mmol/L (3.5-5.1) 04/15/23 21:36 Chloride 96 mmol/L (98-107) L 04/15/23 21:36 Carbon Dioxide 19 mmol/L (21-32) L 04/15/23 21:36 Anion Gap 15 (3-11) H 04/15/23 21:36 BUN 7 mg/dl (6-23) 04/15/23 21:36 Creatinine 0.69 mg/dl (0.6-1.4) 04/15/23 21:36 Est Cr Clr Drug Dosing 115.8 ml/min 04/15/23 21:36 Est GFR ( Amer) 125.6 ml/min 04/15/23 21:36 Est GFR (Non-Af Amer) 108.4 ml/min 04/15/23 21:36 BUN/Creatinine Ratio 10.1 (10-20) 04/15/23 21:36 Glucose 56 mg/dl (70-99(Fasting)) L 04/15/23 21:36 Calcium 9.7 mg/dl (8.6-10.3) 04/15/23 21:36 Magnesium 2.0 mg/dl (1.7-2.4) 04/15/23 21:36 Total Bilirubin 0.5 mg/dl (0.2-1.0) 04/15/23 21:36 AST 35 U/L (13-39) 04/15/23 21:36 ALT 38 U/L (7-52) 04/15/23 21:36 Alkaline Phosphatase 55 U/L (34-104) 04/15/23 21:36 Troponin I High Sens 6.5 pg/ml (0-20) 04/16/23 03:40 Total Protein 8.2 gm/dl (6.0-8.3) 04/15/23 21:36 Albumin 5.0 gm/dl (3.4-5.0) 04/15/23 21:36 Globulin 3.2 gm/dl (2.5-4.0) 04/15/23 21:36 Albumin/Globulin Ratio 1.6 (0.9-2) 04/15/23 21:36 Lipase 32 U/L (11-82) 04/15/23 21:36 Ethyl Alcohol mg/dL 193.0 mg/dl (<10.0) H 04/15/23 21:36 Impressions Abdomen/Pelvis CT 04/16/23 00:55 Exam(s): CT ABDOMEN + PELVIS With Contrast IV Amt: 118 ml opti 320 EXAM: CT Abdomen and Pelvis With Intravenous Contrast CLINICAL HISTORY: Reason for exam: Alcoholic, epigastric pain. TECHNIQUE: Axial computed tomography images of the abdomen and pelvis with intravenous contrast. CTDI is 22.75 mGy and DLP is 706.14 mGy-cm. Automated exposure control was utilized for the study. A dose lowering technique was utilized adhering to the principles of ALARA. CONTRAST: Patient received 118 ml opti 320 of IV contrast COMPARISON: No relevant prior studies available. FINDINGS: Lung bases: Unremarkable. No mass. No consolidation. ABDOMEN: Liver: There is fatty infiltration of the liver. The liver is not enlarged. No focal liver lesion is seen. Gallbladder and bile ducts: Unremarkable. No calcified stones. No ductal dilation. Pancreas: Unremarkable. No mass. No ductal dilation. Spleen: Unremarkable. No splenomegaly. Adrenals: Unremarkable. No mass. Kidneys and ureters: Unremarkable. No solid mass. No hydronephrosis. Stomach and bowel: Bowel loops are nondilated. There is diverticulosis of the colon. No evidence of acute diverticulitis. The appendix is normal. PELVIS: Appendix: See above. Bladder: Unremarkable. No mass. Reproductive: Unremarkable as visualized. ABDOMEN and PELVIS: Intraperitoneal space: Unremarkable. No free air. No significant fluid collection. Bones/joints: Mild degenerative changes in the spine. No fracture or subluxation is seen. Soft tissues: Unremarkable. Vasculature: The abdominal aorta is mildly calcified but nondilated. The portal vein is patent are nondilated measuring 15 mm. Lymph nodes: Unremarkable. No enlarged lymph nodes. IMPRESSION: 1. There is fatty infiltration of the liver. The liver is not enlarged. No focal liver lesion is seen. 2. Bowel loops are nondilated. There is diverticulosis of the colon. No evidence of acute diverticulitis. The appendix is normal. Electronically signed by: Nick Basurto MD 04/16/23 03:17 AM Chest CTA 04/16/23 00:55 Exam(s): CTA CHEST IV Amt: 118 ml opti 320 EXAM: CT Angiography Chest With Intravenous Contrast CLINICAL HISTORY: Reason for exam: PE. TECHNIQUE: Axial computed tomographic angiography images of the chest with intravenous contrast. CTDI is 16.74 mGy and DLP is 783.17 mGy-cm. Automated exposure control was utilized for the study. A dose lowering technique was utilized adhering to the principles of ALARA. MIP reconstructed images were created and reviewed. COMPARISON: No relevant prior studies available. FINDINGS: Pulmonary arteries: The pulmonary arterial tree is well opacified with contrast. No pulmonary embolism is identified. Aorta: The thoracic aorta is nondilated. There is no aneurysm or dissection. Lungs: Unremarkable. No mass. No consolidation. Pleural space: Unremarkable. No significant effusion. No pneumothorax. Heart: Unremarkable. No cardiomegaly. No significant pericardial effusion. No evidence of RV dysfunction. Mediastinum: Mild diffuse circumferential esophageal wall thickening measuring up to 6 mm inferiorly suggesting mild esophagitis. No hiatal hernia seen. No pneumomediastinum. Bones/joints: No acute fracture. No dislocation. Soft tissues: Unremarkable. Lymph nodes: Unremarkable. No enlarged lymph nodes. IMPRESSION: 1. Mild diffuse circumferential esophageal wall thickening measuring up to 6 mm inferiorly suggesting mild esophagitis. No hiatal hernia seen. No pneumomediastinum. 2. The pulmonary arterial tree is well opacified with contrast. No pulmonary embolism is identified. 3. The thoracic aorta is nondilated. There is no aneurysm or dissection. Electronically signed by: Nick Basurto MD 04/16/23 03:19 AM Chest X-Ray 04/16/23 01:00 XR chest 1V portable HISTORY: 52 years-old Male cp acute chest pain COMPARISON: CTA chest of same day TECHNIQUE: PA view the chest FINDINGS: Cardiomediastinal and hilar silhouettes are within normal limits. No pneumothorax, pleural effusion or airspace consolidation. Bones of the chest appear grossly intact. IMPRESSION: No acute process. ACT 112: Negative or not required by law. The above report was generated using voice recognition software. It may contain grammatical, syntax or spelling errors. Electronically signed by: Rubio Fong M.D. 04/16/2023 6:43 AM ECG Additional Comments: ECG. Normal sinus rhythm with rate of 91. Nonspecific T wave abnormality. No significant change was found. Code Status & VTE Plan VTE Prophylaxis Plan VTE Prophylaxis will be ordered: Yes
[2023-04-16 08:46] LABS: BUN Creatinine Ratio 8.8 (10-20); Calcium 9.3 mg/dl (8.6-10.3); Creatinine Clr Calc Pharmacy 99.8 ml/min; Est GFR (African American) 118.2 ml/min; Potassium 4.7 mmol/L (3.5-5.1)
--- NOTE | 2023-04-16 09:18 | Ultrasound Report ---
BILATERAL LOWER EXTREMITY VENOUS DOPPLER HISTORY: Acute pain and swelling of the lower legs b/l calf pain. dvt? COMPARISON STUDY: None. FINDINGS: There is normal compressibility, flow, and augmentation within the bilateral lower extremit y deep venous systems. IMPRESSION: No DVT within the right or left lower extremity. ACT 112: Negative or not required by law. Electronically signed by: Rubio Fong M.D. 04/16/2023 9:17 AM
[2023-04-16] MEDS: PANTOprazole 40 MG in SYRINGE 0 ML IV SCH (09:49)
[2023-04-16] MEDS: INSULIN ASPART PER UNIT CHARGE SC SCH (10:02)
--- NOTE | 2023-04-16 11:09 | Electrocardiogram Report ---
Test Reason : Blood Pressure : / mmHG Vent. Rate : 099 BPM Atrial Rate : 099 BPM P-R Int : 130 ms QRS Dur : 084 ms QT Int : 340 ms P-R-T Axes : 051 071 031 degrees QTc Int : 436 ms Normal sinus rhythm Nonspecific T wave abnormality Abnormal ECG When compared with ECG of 05-APR-2023 23:25, No significant change was found Confirmed by Chris Crespo ([id number]) on 04/16/2023 11:08:40 AM Referred By: REFERRED SELF Confirmed By:Prabhu Crespo
[2023-04-16] MEDS: GABAPENTIN 600 MG TAB PO SCH (13:44)
[2023-04-16] MEDS ORDERED: PHARMACY GLYCEMIC MGMT CONSULT PRN (16:54)
--- NOTE | 2023-04-16 18:59 | Communication Note ---
Date of Service: April 16, 2023 Patient evaluated at bedside. Patient denies acute concerns. Patient reports having a "flight from [place]" at 10am tomorrow morning and would like to leave. Discussed to patient that he is not medically stable to discharge given hypoglycemia in the 50s. Physical exam unremarkable, decisional gentleman without signs of acute inebriation or other deficits Mr Simon is a 52-year-old male with past med history significant for hypertension, diabetes, mood disorder ongoing alcoholism and tobacco abuse presented for alcohol withdrawal on 04/16. Patient was recently in the hospital for alcohol withdrawal. He left the hospital without telling anyone. Again he was in the ER same day evening, On April 13, 2023. He was discharged from the ER with the case management helping Lodging and flight for him to go to [place]. Today, patient hypoglyemic. Holding insulin at this time. #Alcohol intoxication BAL 193 on admission, wished to undergo alcohol withdrawal Alcohol withdrawal with gabapentin protocol and IV Ativan as needed P.o. thiamine and folic acid Close monitor for withdrawals Encourage abstinence #Tobacco abuse Patient does not wish to quit #Hypertension Lisinopril we will monitor #Hypoglycemia #Diabetes Continue home long-acting insulin Sliding scale Discharged with metformin and tresbia, if patient's wishes to leave has supply of medication provided by hospital; however, discussed that he should not leave as we do not have access to data to see how his sugars trend, especially with the low blood sugar levels. Patient states he will stay for now, but is still contemplating leaving to make reported flight in morning #Esophagitis On CT scan Continue on Protonix #Bilateral lower extremity calf pains Dopplers negative DVT prophylaxis Lovenox Disposition telemetry Full code
[2023-04-17] MEDS ORDERED: INSULIN GLARGINE 100 UNIT/ML VIAL SC SCH
[2023-04-17] MEDS ORDERED: LANTUS PER UNIT CHARGE SQ STA (05:29)
[2023-04-17] MEDS: LANTUS PER UNIT CHARGE SC STA (05:40)
[2023-04-17] MEDS ORDERED: GABAPENTIN 600 MG TAB PO SCH (06:00)
[2023-04-17] MEDS ORDERED: LANTUS PER UNIT CHARGE SC SCH (09:00)
--- NOTE | 2023-04-17 10:37 | Discharge Summary ---
Discharge Summary Date of Service April 17, 2023 Notes For Next Care Provider Medication Changes From Visit AMA Admission HPI Per Admitting Provider 52-year-old male with past med history significant for hypertension, diabetes, mood disorder ongoing alcoholism and tobacco abuse presents with alcohol withdrawal. Patient was recently in the hospital for alcohol withdrawal. He left the hospital without telling anyone. Again he was in the ER same day evening, On April 13, 2023. He was discharged from the ER with the case management helping Lodging and flight for him to go to [place]. Patient states he did not go to [place]. Currently no money to stay in the lodging. Comes again to the ER with alcoholism. States he was drinking 10 beers daily. Yesterday had headache and some runny nose but no longer having it. Denies any chest pain or shortness of breath. No nausea. No abdominal pain. Normal bowel and bladder movements. States has gas in the stomach and burping. Complains of pain in bilateral calfs and feet. Resting comfortably and hemodynamically stable. Past medical history. As mentioned above Past surgical history. None family history. Diabetes, heart disease, stroke, hypertension, alcoholism. Social history. Ongoing alcoholism. 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 ENT- oropharynx clear Neck- supple, no JVD. Lungs- clear to auscultation no wheezing or crackles. Heart- regular rhythm; no murmur, no gallop. Abdomen- normal bowel sounds, soft, nontender, no distension. Extremities- no pretibial edema, no erythema seen.Lower extremity warm to touch Neuro- alert, oriented PERRL, no facial palsy; no dysarthria; moves extremities. Skin- warm & dry Principal Dx & Hospital Course #1 = Principal Diagnosis (1) Alcohol intoxication: (2) Alcohol withdrawal: Plan Mr Simon is a 52-year-old male with past med history significant for hypertension, diabetes, mood disorder ongoing alcoholism and tobacco abuse presented for alcohol withdrawal on 04/16. Patient was recently in the hospital for alcohol withdrawal. He left the hospital without telling anyone. Again he was in the ER same day evening, On April 13, 2023. He was discharged from the ER with the case management helping Lodging and flight for him to go to [place]. Patient hypoglycemic on insulin. Recommended patient stay for adjusting insulin regimen. Patient initially stayed, but left without being seen by attending provider overnight. #Alcohol intoxication BAL 193 on admission, wished to undergo alcohol withdrawal Alcohol withdrawal with gabapentin protocol and IV Ativan as needed P.o. thiamine and folic acid Close monitor for withdrawals Encouraged abstinence #Tobacco abuse Patient does not wish to quit #Hypertension Lisinopril we will monitor #Hypoglycemia #Diabetes Continue home long-acting insulin Sliding scale Discharged with metformin and tresbia, if patient's wishes to leave has supply of medication provided by hospital; however, discussed that he should not leave as we do not have access to data to see how his sugars trend, especially with the low blood sugar levels. Patient states he will stay for now, but is still contemplating leaving to make reported flight in morning #Esophagitis On CT scan Continue on Protonix #Bilateral lower extremity calf pains Dopplers negative DVT prophylaxis Lovenox Disposition telemetry Full code Discharge Exam Constitutional Patient left without being seen by attending provider Updated Medication List Medication Instructions Recorded Confirmed Type lisinopril 40 mg tablet 40 mg PO DAILY 04/05/23 04/16/23 History insulin degludec 100 unit/mL (3 40 unit (0.4 mL) subcut DAILY #15 04/08/23 04/16/23 Rx mL) subcutaneous pen (Tresiba mL FlexTouch U-100 insulin) metformin 1,000 mg tablet 1,000 mg PO BIDWMEAL 04/16/23 04/16/23 History Hospital Stay Data Consultations 04/16/23 03:40 ED Decision to Admit Stat Diagnostic Imagining Performed 04/16/23 00:55 CT Abd and Pelvis [CT abd pelvis IV con only] Stat CT angio chest PE protocol Stat 04/16/23 06:56 US venous doppler LE BI Urgent Pending Results Patient Have Any Pending Studies at Discharge: No Total Time Total Time Spent Total Time Spent (In Minutes): 0
[2023-04-18] MEDS ORDERED: GABAPENTIN 600 MG TAB PO SCH (10:00)
[2023-04-19] MEDS ORDERED: GABAPENTIN 600 MG TAB PO SCH (22:00)
== END 2023-04-17 05:45 | disposition left against medical advice (07) | DRG 894 ==
LOC: ED 22:20 → EDINP 04-16 05:24 → 2S 04-16 06:56
DX: I10 Essential (primary) hypertension; K20.90 Esophagitis, unspecified without bleeding; F10.221 Alcohol dependence with intoxication delirium; E11.649 Type 2 diabetes mellitus with hypoglycemia without coma; F10.239 Alcohol dependence with withdrawal, unspecified; Z79.4 Long term (current) use of insulin; F39 Unspecified mood [affective] disorder; F17.210 Nicotine dependence, cigarettes, uncomplicated

== ENCOUNTER 2023-04-19 17:34 | Inpatient (IN) ==
[2023-04-19] MEDS: ONDANSETRON 4 MG OD TAB PO STA (18:15)
[2023-04-19 18:40] LABS: BUN Creatinine Ratio 11.1 (10-20); Calcium 9.5 mg/dl (8.6-10.3); Creatinine Clr Calc Pharmacy 87.4 ml/min; Est GFR (African American) 100.4 ml/min; Est GFR (Non-African American) 86.6 ml/min; Potassium 4.2 mmol/L (3.5-5.1)
--- NOTE | 2023-04-19 20:08 | Emergency Department Note ---
History of Present Illness General Chief complaint: Alcohol Intoxication Time Seen by Provider: 04/19/23 19:55 Source: patient, family, RN notes reviewed and old records reviewed (I reviewed a recent admission/discharge from 04/16/2023 when he was admitted here for alcohol intoxication and withdrawal) Mode of arrival: ambulatory Limitations: no limitations History of Present Illness Maximum Pain Intensity: 8 This patient a 52-year-old male who comes in after complaining that he has alcohol poisoning. He says he drank significant of alcohol he says he does not typically drink although has been here several times recently including he was admitted 2 nights ago or so for alcohol withdrawal and left AMA. 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 He denies any fall he denies any aspirin or Tylenol. He says his whole body aches he vomited twice. He has been unable to take his insulin because he does not have needles. Denies chest pain or shortness of breath. Denies fever or chills. Home Medications Medication Instructions Recorded Confirmed Type lisinopril 40 mg tablet 40 mg PO DAILY 04/05/23 04/19/23 History insulin degludec 100 unit/mL (3 40 unit (0.4 mL) subcut DAILY #15 04/08/23 04/19/23 Rx mL) subcutaneous pen (Tresiba mL FlexTouch U-100 insulin) metformin 1,000 mg tablet 1,000 mg PO BIDWMEAL 04/16/23 04/19/23 History Allergies Allergy/AdvReac Type Severity Reaction Status Date / Time Fish Containing Products AdvReac Verified 04/10/23 11:57 Past Med/Surg History Social History Smoking Status: Current every day smoker Tobacco Type: Cigarettes Cigarettes Per Day: 1 ppd; Do You Dip or Chew Tobacco: No; Hx Alcohol Use: Yes Alcohol type: beer Hx Substance Use: No Preferred Language: Fijian Communication Ability: Effective Enrollment Manager Required: No Beliefs That Will Affect Care: None Current Living Situation: Other Current Living Situation Comment: 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 Feels Safe at Home: Yes Assistive Devices: None Review of Systems A total of 10 systems reviewed and were otherwise negative Physical Exam Vital Signs Vital Signs - 24 hr 04/19/23 17:54 04/19/23 18:22 04/19/23 18:57 Temperature 37.4 C Temperature Source Oral Pulse Rate 132 H 135 H 134 H Pulse Rate from SpO2 Sensor Respiratory Rate 14 20 Respiratory Effort / Characteristics Non-Labored Spontaneous Respiratory Depth Normal Respiratory Pattern Regular Blood Pressure 104/77 95/62 L Blood Pressure Mean 86 73 Pulse Oximetry 99 90 Oxygen Delivery Method Room Air Room Air Sepsis Recent Fever Within 48 Hours No Sepsis New/Unexplained Change in Mental Status N/A Sepsis Action Taken by Nursing No Action Required 04/19/23 19:24 04/19/23 19:30 04/19/23 20:00 Temperature Temperature Source Pulse Rate 32 L 136 H Pulse Rate from SpO2 Sensor 141 H 136 H Respiratory Rate 19 Respiratory Effort / Characteristics Respiratory Depth Respiratory Pattern Blood Pressure 105/71 94/75 L 86/59 L Blood Pressure Mean 82 81 68 Pulse Oximetry 98 96 95 Oxygen Delivery Method Room Air Room Air Room Air Sepsis Recent Fever Within 48 Hours Sepsis New/Unexplained Change in Mental Status Sepsis Action Taken by Nursing 04/19/23 20:17 04/19/23 20:26 04/19/23 20:30 Temperature Temperature Source Pulse Rate 136 H 128 H 124 H Pulse Rate from SpO2 Sensor 136 H 128 H 124 H Respiratory Rate 17 17 17 Respiratory Effort / Characteristics Respiratory Depth Respiratory Pattern Blood Pressure 93/67 L 107/79 126/86 Blood Pressure Mean 75 88 99 Pulse Oximetry 97 92 91 Oxygen Delivery Method Room Air Room Air Room Air Sepsis Recent Fever Within 48 Hours Sepsis New/Unexplained Change in Mental Status Sepsis Action Taken by Nursing 04/19/23 21:00 04/19/23 21:30 04/19/23 21:37 Temperature Temperature Source Pulse Rate 125 H 126 H 119 H Pulse Rate from SpO2 Sensor 125 H 128 H 118 H Respiratory Rate 20 22 22 Respiratory Effort / Characteristics Respiratory Depth Respiratory Pattern Blood Pressure 120/84 99/75 L 115/75 Blood Pressure Mean 96 83 88 Pulse Oximetry 90 94 92 Oxygen Delivery Method Room Air Room Air Room Air Sepsis Recent Fever Within 48 Hours Sepsis New/Unexplained Change in Mental Status Sepsis Action Taken by Nursing 04/19/23 22:00 04/19/23 22:30 04/19/23 23:00 Temperature Temperature Source Pulse Rate 119 H 120 H 126 H Pulse Rate from SpO2 Sensor 119 H 120 H Respiratory Rate 18 19 12 Respiratory Effort / Characteristics Respiratory Depth Respiratory Pattern Blood Pressure 114/73 118/74 135/88 Blood Pressure Mean 86 88 103 Pulse Oximetry 91 92 93 Oxygen Delivery Method Room Air Room Air Room Air Sepsis Recent Fever Within 48 Hours Sepsis New/Unexplained Change in Mental Status Sepsis Action Taken by Nursing 04/19/23 23:14 04/19/23 23:14 Temperature Temperature Source Pulse Rate Pulse Rate from SpO2 Sensor Respiratory Rate Respiratory Effort / Characteristics Respiratory Depth Respiratory Pattern Blood Pressure Blood Pressure Mean Pulse Oximetry 93 93 Oxygen Delivery Method Room Air Room Air Sepsis Recent Fever Within 48 Hours Sepsis New/Unexplained Change in Mental Status Sepsis Action Taken by Nursing General: Well developed well nourished middle-age male who is awake and talking in no acute distress, breathing comfortably on room air. Normal speech HEENT: Normal cephalic atraumatic. Pupils are equal round and reactive to light. Extraocular movements are intact. Oropharynx is pink with moist mucous membranes. No swelling of the mouth lips or tongue. Neck: Supple with a midline trachea. No meningeal signs or stiffness, no JVD or bruits. No Stridor. Chest: Clear to auscultation bilaterally. No wheezes or rhonchi. No increased work of breathing. Heart: Tachycardic but regular rate and rhythm without murmurs or gallops. Abdomen: Soft nontender, nondistended without rebound guarding or rigidity. Extremities: No cyanosis clubbing or edema. No calf tenderness or assymetry Spine/Back. Non tender to palpation. No CVA tenderness Skin: Good turgor without rashes. Neurologic exam: Cranial nerves two through 12 are intact. Motor and sensation are intact and symmetrical throughout. No tremor Course Administered Medications Lactated Ringer's (Lr) 1,000 mls @ 200 mls/hr IV .Q5H ONE Stop: 04/20/23 02:59 Last Admin: 04/19/23 23:11 Dose: 200 mls/hr Documented By: TARIK Magnesium Sulfate/Dextrose (Magnesium Sulfate / D5w) 1 gm in 100 mls @ 50 mls/hr IV Q2H EMY Stop: 04/20/23 02:14 Last Admin: 04/19/23 22:31 Dose: 50 mls/hr Documented By: TARIK Discontinued Medications Sodium Chloride (Nss) 1,000 mls @ 999 mls/hr IV .Q1H1M ONE Stop: 04/19/23 21:03 Last Infusion: 04/19/23 23:19 Dose: Infused Documented By: Admin: 04/19/23 20:24 Dose: 999 mls/hr Documented By: TARIK Multivitamins 10 ml/ Thiamine HCl 100 mg/ Folic Acid 1 mg/Sodium Chloride 1,011.2 mls @ 500 mls/hr IV .Q2H2M ONE Stop: 04/19/23 22:04 Last Infusion: 04/19/23 23:19 Dose: Infused Documented By: Admin: 04/19/23 20:58 Dose: 500 mls/hr Documented By: TARIK Insulin Glargine (Lantus Per Unit Charge) 15 units SQ NOW STA Stop: 04/19/23 22:50 Last Admin: 04/19/23 22:59 Dose: 15 units Documented By: TARIK Co-signed By: SHOBHA Lorazepam (Lorazepam 1 Mg/1 Ml Syr Ed Inj Use) 1 mg IV ONE STA Stop: 04/19/23 21:20 Last Admin: 04/19/23 21:51 Dose: 1 mg Documented By: TARIK Ondansetron HCl (Ondansetron 4 Mg Od Tab) 4 mg PO NOW STA Stop: 04/19/23 18:01 Last Admin: 04/19/23 18:15 Dose: 4 mg Documented By: [facility] Critical Care Time Critical Care Time: Yes Total Critical Care Time: 32 Due to the patient's alcohol intoxication and concern for alcohol withdrawal, unstable vital signs, need for IV fluids, IV medications, and consultation with medicine for admission/observation, I have personally spent greater than 32 minutes of critical care time in the direct management of this patient. This includes bedside care, interpretation of diagnostic studies, and testing, discussion with consultants, patient, and family members, and other required patient management activities. This 30 minutes is in excess of all separately billable procedures. Medical Decision Making Differential Diagnosis Alcohol intoxication, alcohol withdrawal, electrolyte or metabolic abnormality, toxicologic, metabolic, sepsis, diabetic complication Medical Records Attestation: I reviewed the patient's medical records. Home Medications Current Medication List: was personally reviewed by de Laboratory Data Attestation: I reviewed the patient's lab results. 04/19/23 18:00 04/19/23 18:00 Lab Results 04/19/23 04/19/23 04/19/23 Range/Units 18:00 20:49 23:00 WBC 9.06 (4.8-10.8) K/ul RBC 5.51 (4.70-6.10) M/uL Hgb 15.0 (14.0-18.0) g/dl Hct 47.2 (42.0-52.0) % MCV 85.7 (80.0-100.0) fL MCH 27.2 (25.0-34.0) pg MCHC 31.8 L (32.0-36.0) g/dL RDW Std Deviation 49.2 H (36.4-46.3) fL RDW Coeff of Genevieve 15.9 H (11.5-14.5) % Plt Count 343 (130-400) K/uL MPV 9.4 (9.4-12.4) fL Immature Gran % (Auto) 0.4 % Neut % (Auto) 88.2 % Lymph % (Auto) 6.7 % [place] % (Auto) 4.3 % Eos % (Auto) 0.2 % Baso % (Auto) 0.2 % Neut # (Auto) 7.98 H (1.40-6.50) K/uL Lymph # (Auto) 0.61 L (1.20-3.40) K/uL [place] # (Auto) 0.39 (0.11-0.59) K/uL Eos # (Auto) 0.02 (0.00-0.50) K/uL Baso # (Auto) 0.02 (0.00-0.20) K/uL Immature Gran # (Auto) 0.04 (0.01-0.20) K/uL PT 9.9 (9.0-12.0) Seconds INR 0.9 (0.9-1.1) Sodium 136 (136-145) mmol/L Potassium 4.2 (3.5-5.1) mmol/L Chloride 99 (98-107) mmol/L Carbon Dioxide 22 (21-32) mmol/L Anion Gap 15 H (3-11) BUN 11 (6-23) mg/dl Creatinine 0.99 (0.6-1.4) mg/dl Est Cr Clr Drug Dosing 87.4 ml/min Est GFR ( Amer) 100.4 ml/min Est GFR (Non-Af Amer) 86.6 ml/min BUN/Creatinine Ratio 11.1 (10-20) Glucose 275 H (70-99(Fasting)) mg/dl Calcium 9.5 (8.6-10.3) mg/dl Magnesium 1.6 L (1.7-2.4) mg/dl Total Bilirubin 0.3 (0.2-1.0) mg/dl Direct Bilirubin 0.1 (0-0.2) mg/dl AST 28 (13-39) U/L ALT 41 (7-52) U/L Alkaline Phosphatase 52 (34-104) U/L Troponin I High Sens 4.6 (0-20) pg/ml Total Protein 7.8 (6.0-8.3) gm/dl Albumin 4.4 (3.4-5.0) gm/dl Urine Color Yellow Urine Appearance Clear (Clear) Urine pH 5.0 (4.5-7.5) Ur Specific [place] 1.019 (1.000-1.030) Urine Protein Negative (Negative) Urine Glucose (UA) 3+ H (Negative) Urine Ketones Trace H (Negative) Urine Blood Negative (Negative) Urine Nitrite Negative (Negative) Urine Bilirubin Negative (Negative) Urine Urobilinogen Negative (Negative) Ur Leukocyte Esterase Negative (Negative) Salicylates < 3.0 L (3.0-30) mg/dl Urine Opiates Screen Neg (Neg) Ur Methadone, Qual Neg (Neg) Acetaminophen < 3 L (10-30) ug/ml Urine Barbiturates Neg (Neg) Ur Phencyclidine (PCP) Neg (Neg) U Amphetamin/Meth Scrn Neg (Neg) MDMA (Ecstasy) Screen Neg (Neg) U Benzodiazepines Scrn Pos H (Neg) Ur Cocaine Metabolite Neg (Neg) U Marijuana (THC) Screen Neg (Neg) Ethyl Alcohol mg/dL 270.8 H (<10.0) mg/dl Imaging Data Attestation: I personally reviewed and interpreted this imaging study as follows: My Impression: Chest x-rayno acute infiltrate, failure, pneumothorax seen as per my independent interpretation Radiologist's Impression: Chest X-Ray 04/19/23 20:15 SINGLE VIEW CHEST CLINICAL HISTORY: Generalized weakness. FINDINGS: An AP, portable, semierect chest radiograph is compared to chest x-ray and chest CT dated 04/16/2023. Partially degraded The heart is mildly enlarged. The pulmonary vasculature is noncongested. There is mild elevation of the right hemidiaphragm. The lungs and pleural spaces are clear. No pneumothorax is seen. The bony thorax is grossly intact. IMPRESSION: No active disease in the chest. ACT 112: Negative or not required by law. Electronically signed by: Darrell Ardon M.D. 04/19/2023 10:32 PM ECG Data Attestation: I personally reviewed and interpreted this ECG as follows: Indication: + palpitations Rate (beats per minute): 134 Rhythm: + sinus tachycardia ECG Intervals/blocks: + Normal QRS, + Normal QT and + Normal AR ECG [place]: + Normal ECG ST segments: + Normal ST segments ECG Findings: no PACs or no PVCs Comparison ECG Date: from (04/18/23) Change: no significant change MDM Narrative This patient comes in as scribed above. He was drinking a lot today as blood alcohol was elevated here in the 270s. His blood sugar is also 270 with a CO2 of 22. His anion gap is mildly elevated. He was hydrated with normal saline. Initially had normal vital signs however when I went in he was on the hypotensive and tachycardic side. I did order an EKG and fluids based on this. Multiple blood testing was obtained also ordered IV banana bag. His blood pressure improved with the fluids he was tachycardic but this improved to the 120s I did give him IV Ativan 1 mg as I do think he is having withdrawal as well. He has been here multiple times and at this point I do think he needs to be observed/admitted for alcohol withdrawal. He has no fever white count is just infection is no significant anemia. His alcohol is elevated. I did consult Dr. Alatorre who saw him in the ER and will admit/observe him for these measures. Continuous monitoring tech: Orders were placed in EMR for continuous monitoring tech call upon my evaluation patient is noted to be sinus tachycardia with a rate of 130 Impression & Plan Alcohol intoxication, Alcohol withdrawal, Sinus tachycardia, Hypotension Discharge Plan Visit Data Chief Complaint: Alcohol Intoxication ED Provider: Dwight Perez Discharge Problem: Alcohol intoxication, Alcohol withdrawal, Sinus tachycardia, Hypotension Discharge Instructions Interventions: ED Discharge Assessment Last Done: 04/19/23 23:38 Forms Stand Alone Forms: My [facility] Prescriptions Prescriptions: No Action lisinopril 40 mg Tablet 40 mg PO DAILY insulin degludec [Tresiba FlexTouch U-100] 100 unit/mL (3 mL) insulin pen 40 unit subcut DAILY Qty: 15 0RF metformin 1,000 mg Tablet 1,000 mg PO BIDWMEAL Referrals Referrals: PCP,NO [Primary Care Provider] - Discharge Problem: Alcohol intoxication Qualifiers: Complication of substance-induced condition: uncomplicated Qualified Code(s): F 10.920 - Alcohol use, unspecified with intoxication, uncomplicated Alcohol withdrawal Qualifiers: Complication of substance-induced condition: uncomplicated Qualified Code(s): F 930 - Alcohol use, unspecified with withdrawal, uncomplicated Hypotension Qualifiers: Hypotension type: unspecified hypotension type Qualified Code(s): I95.9 - Hypotension, unspecified
[2023-04-19] MEDS: SODIUM CHLORIDE 0.9% 1,000 ML IV ONE (20:24)
[2023-04-19] MEDS: MULTI-VITAMIN INFUSION 10 ML, THIAMINE HCL 100 MG, FOLIC ACID 1 MG in SODIUM CHLORIDE 0... IV ONE (20:58)
[2023-04-19 20:59] LABS: Basophils # (auto) 0.02 K/uL (0.00-0.20); Basophils % (auto) 0.2 %; Eosinophils # (auto) 0.02 K/uL (0.00-0.50); Eosinophils % (auto) 0.2 %; Hematocrit (blood only) 47.2 % (42.0-52.0); Immature Granulocytes # (auto) 0.04 K/uL (0.01-0.20); Immature Granulocytes % (auto) 0.4 %; Lymphocytes # (auto) 0.61 K/uL (1.20-3.40); Lymphocytes % (auto) 6.7 %; Mean Corpuscular Hemoglobin 27.2 pg (25.0-34.0); Mean Corpuscular Hgb Conc 31.8 g/dL (32.0-36.0); Mean Corpuscular Volume 85.7 fL (80.0-100.0); Mean Platelet Volume 9.4 fL (9.4-12.4); Monocytes # (auto) 0.39 K/uL (0.11-0.59); Monocytes % (auto) 4.3 %; Neutrophils # (auto) 7.98 K/uL (1.40-6.50); Neutrophils % (auto) 88.2 %; Platelet Count 343 K/uL (130-400); RDW Coefficient of Variation 15.9 % (11.5-14.5); RDW Standard Deviation 49.2 fL (36.4-46.3); Red Blood Count 5.51 M/uL (4.70-6.10); White Blood Count 9.06 K/ul (4.8-10.8)
[2023-04-19 21:04] LABS: Troponin I High Sensitivity 4.6 pg/ml (0-20)
[2023-04-19 21:42] LABS: INR 0.9 (0.9-1.1); Prothrombin Time 9.9 Seconds (9.0-12.0)
[2023-04-19 21:43] LABS: Acetaminophen < 3 ug/ml (10-30); Salicylate < 3.0 mg/dl (3.0-30)
[2023-04-19 21:50] LABS: Albumin Level 4.4 gm/dl (3.4-5.0); Bilirubin Direct 0.1 mg/dl (0-0.2); Bilirubin,Total 0.3 mg/dl (0.2-1.0); Magnesium 1.6 mg/dl (1.7-2.4)
[2023-04-19] MEDS: LORazepam 1 MG/1 ML SYR ED Inj Use IV STA (21:51)
[2023-04-19 21:55] LABS: Total Protein 7.8 gm/dl (6.0-8.3)
[2023-04-19] MEDS: MAGNESIUM SULFATE / D5W 1 GM/100 ML BAG IV SCH (22:31)
--- NOTE | 2023-04-19 22:34 | XRay Report ---
SINGLE VIEW CHEST CLINICAL HISTORY: Generalized weakness. FINDINGS: An AP, portable, semierect chest radiograph is compared to chest x-ray and chest CT dated . Partially degraded The heart is mildly enlarged. The pulmonary vasculature is noncongested. There is mild elevation of the right hemidiaphragm. The lungs and pleural spaces are clear. No pneum othorax is seen. The bony thorax is grossly intact. IMPRESSION: No active disease in the chest. ACT 112: Negative or not required by law. Electronically signed by: Darrell Ardon M.D. 04/19/2023 10:32 PM
--- NOTE | 2023-04-19 22:50 | History & Physical Report ---
Date of Service April 19, 2023 Assessment & Plan (1) Alcohol withdrawal: Plan: HTN, BP on the lower side DM2 insulin requiring, suboptimal control given noncompliance with regimen, hemoglobin A1c of 13.7 this month chronic anemia, hemoglobin better than baseline likely secondary to hemoconcentration mood disorder, severe depression without suicidality, patient not on medications ongoing tobacco abuse Medical telemetry ANASTASIA S, DT precautions Basal bolus insulin, ISS BG goal 1 10-1 40, carb count coverage Psych consult re: severe depression Nicotine patch Social service RE alcohol rehab placement once medically stable DVT prophylaxis. Lovenox subcu Full code Text document was generated using [employer] voice recognition software. It may contain grammatical or spelling errors. Kindly contact undersigned for clarification of any documentation item in question. History of Present Illness Chief Complaint: I need help Primary Care Provider: NO PCP History obtained from patient and records. Medical history significant for HTN, DM2 insulin requiring, chronic anemia (baseline hemoglobin of 13), mood disorder, ongoing tobacco/alcohol abuse. 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 Two admissions this month for alcohol withdrawal. Patient signed out AGAINST MEDICAL ADVICE during both admissions. Unable to take blood pressure and insulin medications on discharge due to lack of supplies and homelessness. Patient returned to ER after leaving hospital 2 days ago but subsequently discharged. Worsening depression since leaving the hospital 2 days ago. Denies suicidality. Continued alcohol consumption. Patient returned to ER tonight due to feeling worse. No headache, no chest pain, no SOB, no abdominal pain. Some nausea and bilious emesis. Patient wants help to stop drinking to get better. 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 Allergies Allergy/AdvReac Type Severity Reaction Status Date / Time Fish Containing Products AdvReac Verified 04/10/23 11:57 Home Medications Medication Instructions Recorded Confirmed Type lisinopril 40 mg tablet 40 mg PO DAILY 04/05/23 04/19/23 History insulin degludec 100 unit/mL (3 40 unit (0.4 mL) subcut DAILY #15 04/08/23 04/19/23 Rx mL) subcutaneous pen (Tresiba mL FlexTouch U-100 insulin) metformin 1,000 mg tablet 1,000 mg PO BIDWMEAL 04/16/23 04/19/23 History Past Med/Surg History Medical History (Updated 04/20/23 @ 03:52 by Harsha Mullen MD) Alcohol withdrawal Social History Smoking Status: Current every day smoker Tobacco Type: Cigarettes Cigarettes Per Day: 0.5 ppd; Do You Dip or Chew Tobacco: No; Tobacco Cessation Education Requested by Patient: Yes Hx Alcohol Use: Yes Alcohol type: beer Hx Substance Use: No Preferred Language: Kinyarwanda Communication Ability: Effective Metal Window Screen Assembler Required: No Beliefs That Will Affect Care: None Current Living Situation: Alone Current Living Situation Comment: alone- "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" Feels Safe at Home: Yes Assistive Devices: None Review of Systems Review of Systems: As per HPI, all other systems reviewed and negative Physical Exam Physical Exam: GENERAL: Slightly anxious, no respiratory distress SKIN: Pallor, warm HEENT: Partial alopecia, pale palpebral conjunctivae, no ptosis, dry buccal mucosa NECK : Supple, no tenderness CHEST : CTA, no tenderness HEART : Tachycardic, no obvious murmurs ABDOMEN: Some distention, nontender EXTREMITIES : No LE swelling/tenderness, no other conspicuous deformities noted NEUROLOGIC : Coherent, no facial asymmetry, no gross focality Results & Data Results & Data Vital Signs (Past 12 Hours) Vital Signs Temp Pulse Resp BP Pulse Ox O2 Del Method 04/19/23 22:00 119 H 18 114/73 91 Room Air 04/19/23 21:37 119 H 22 115/75 92 Room Air 04/19/23 21:30 126 H 22 99/75 L 94 Room Air 04/19/23 21:00 125 H 20 120/84 90 Room Air 04/19/23 20:30 124 H 17 126/86 91 Room Air 04/19/23 20:26 128 H 17 107/79 92 Room Air 04/19/23 20:17 136 H 17 93/67 L 97 Room Air 04/19/23 20:00 136 H 19 86/59 L 95 Room Air 04/19/23 19:30 94/75 L 96 Room Air 04/19/23 19:24 32 L 105/71 98 Room Air 04/19/23 18:57 134 H 20 95/62 L 90 Room Air 04/19/23 18:22 135 H 04/19/23 17:54 37.4 C 132 H 14 104/77 99 Room Air Laboratory Results Laboratory Results WBC 9.06 K/ul (4.8-10.8) 04/19/23 18:00 RBC 5.51 M/uL (4.70-6.10) 04/19/23 18:00 Hgb 15.0 g/dl (14.0-18.0) 04/19/23 18:00 Hct 47.2 % (42.0-52.0) 04/19/23 18:00 MCV 85.7 fL (80.0-100.0) 04/19/23 18:00 MCH 27.2 pg (25.0-34.0) 04/19/23 18:00 MCHC 31.8 g/dL (32.0-36.0) L 04/19/23 18:00 RDW Std Deviation 49.2 fL (36.4-46.3) H 04/19/23 18:00 RDW Coeff of Genevieve 15.9 % (11.5-14.5) H 04/19/23 18:00 Plt Count 343 K/uL (130-400) 04/19/23 18:00 MPV 9.4 fL (9.4-12.4) 04/19/23 18:00 Immature Gran % (Auto) 0.4 % 04/19/23 18:00 Neut % (Auto) 88.2 % 04/19/23 18:00 Lymph % (Auto) 6.7 % 04/19/23 18:00 [place] % (Auto) 4.3 % 04/19/23 18:00 Eos % (Auto) 0.2 % 04/19/23 18:00 Baso % (Auto) 0.2 % 04/19/23 18:00 Neut # (Auto) 7.98 K/uL (1.40-6.50) H 04/19/23 18:00 Lymph # (Auto) 0.61 K/uL (1.20-3.40) L 04/19/23 18:00 [place] # (Auto) 0.39 K/uL (0.11-0.59) 04/19/23 18:00 Eos # (Auto) 0.02 K/uL (0.00-0.50) 04/19/23 18:00 Baso # (Auto) 0.02 K/uL (0.00-0.20) 04/19/23 18:00 Immature Gran # (Auto) 0.04 K/uL (0.01-0.20) 04/19/23 18:00 PT 9.9 Seconds (9.0-12.0) 04/19/23 18:00 INR 0.9 (0.9-1.1) 04/19/23 18:00 Sodium 136 mmol/L (136-145) 04/19/23 18:00 Potassium 4.2 mmol/L (3.5-5.1) 04/19/23 18:00 Chloride 99 mmol/L (98-107) 04/19/23 18:00 Carbon Dioxide 22 mmol/L (21-32) 04/19/23 18:00 Anion Gap 15 (3-11) H 04/19/23 18:00 BUN 11 mg/dl (6-23) 04/19/23 18:00 Creatinine 0.99 mg/dl (0.6-1.4) 04/19/23 18:00 Est Cr Clr Drug Dosing 87.4 ml/min 04/19/23 18:00 Est GFR ( Amer) 100.4 ml/min 04/19/23 18:00 Est GFR (Non-Af Amer) 86.6 ml/min 04/19/23 18:00 BUN/Creatinine Ratio 11.1 (10-20) 04/19/23 18:00 Glucose 275 mg/dl (70-99(Fasting)) H 04/19/23 18:00 Calcium 9.5 mg/dl (8.6-10.3) 04/19/23 18:00 Magnesium 1.6 mg/dl (1.7-2.4) L 04/19/23 18:00 Total Bilirubin 0.3 mg/dl (0.2-1.0) 04/19/23 18:00 Direct Bilirubin 0.1 mg/dl (0-0.2) 04/19/23 18:00 AST 28 U/L (13-39) 04/19/23 18:00 ALT 41 U/L (7-52) 04/19/23 18:00 Alkaline Phosphatase 52 U/L (34-104) 04/19/23 18:00 Troponin I High Sens 4.6 pg/ml (0-20) 04/19/23 18:00 Total Protein 7.8 gm/dl (6.0-8.3) 04/19/23 18:00 Albumin 4.4 gm/dl (3.4-5.0) 04/19/23 18:00 Salicylates < 3.0 mg/dl (3.0-30) L 04/19/23 20:49 Acetaminophen < 3 ug/ml (10-30) L 04/19/23 20:49 Ethyl Alcohol mg/dL 270.8 mg/dl (<10.0) H 04/19/23 18:00 Impressions Chest X-Ray 04/19/23 20:15 SINGLE VIEW CHEST CLINICAL HISTORY: Generalized weakness. FINDINGS: An AP, portable, semierect chest radiograph is compared to chest x-ray and chest CT dated 04/16/2023. Partially degraded The heart is mildly enlarged. The pulmonary vasculature is noncongested. There is mild elevation of the right hemidiaphragm. The lungs and pleural spaces are clear. No pneumothorax is seen. The bony thorax is grossly intact. IMPRESSION: No active disease in the chest. ACT 112: Negative or not required by law. Electronically signed by: Darrell Ardon M.D. 04/19/2023 10:32 PM Diagnostic Findings EKG as per my interpretation :Rate 135, sinus tachycardia, normal axis, T wave abnormalities inferior and lateral leads
[2023-04-19] MEDS ORDERED: oxyCODONE HCL IR 5 MG TAB (IMMEDIATE RELEASE) PO PRN (22:52)
[2023-04-19] MEDS ORDERED: LORazepam 3 MG in SYRINGE 1.5 ML IV PRN (22:52)
[2023-04-19] MEDS ORDERED: CARBOHYDRATES FOR HYPOGLYCEMIA PO PRN (22:52)
[2023-04-19] MEDS ORDERED: DEXTROSE 50% 50 ML SYRINGE IV PRN (22:52)
[2023-04-19] MEDS ORDERED: Ativan IV Alcohol Withdrawal--Active Protocol IV PRN (22:52)
[2023-04-19] MEDS ORDERED: GLUCOSE 40% GEL 15 GM TUBE PO PRN (22:52)
[2023-04-19] MEDS ORDERED: GLUCOSE 10 TAB/TUBE PO PRN (22:52)
[2023-04-19] MEDS ORDERED: GLUCAGON FOR INJ 1 MG VIAL SQ PRN (22:52)
[2023-04-19] MEDS ORDERED: LORazepam 2 MG in SYRINGE 1 ML IV PRN (22:52)
[2023-04-19] MEDS ORDERED: PROMETHAZINE HCL 6.25 MG in SODIUM CHLORIDE 0.9% 50 ML IV PRN (22:52)
[2023-04-19] MEDS ORDERED: GABAPENTIN 1200MG ALCOHOL WITHDRAWAL LOAD PO STA (22:52)
[2023-04-19] MEDS ORDERED: LORazepam 1 MG in SYRINGE 0.5 ML IV PRN (22:52)
[2023-04-19] MEDS: LANTUS PER UNIT CHARGE SQ STA (22:59)
[2023-04-19] MEDS: LACTATED RINGER'S 1,000 ML IV ONE (23:11)
[2023-04-19 23:14] LABS: Appearance Urine Clear (Clear); Bilirubin Urine Negative (Negative); Blood Urine Negative (Negative); Color Urine Yellow; Glucose Urine UA 3+ (Negative); Ketones Urine Trace (Negative); Leukocyte Esterase Urine Negative (Negative); Nitrite Urine Negative (Negative); Protein Urine Negative (Negative); Specific Gravity Urine 1.019 (1.000-1.030); Urobilinogen Urine Negative (Negative)
[2023-04-19 23:45] LABS: Amphetamines+Metham, Urine Neg (Neg); Barbiturates, Urine Neg (Neg); Benzodiazepine, Urine Pos (Neg); Cocaine, Urine Neg (Neg); MDMA (Ecstacy), Urine Neg (Neg); Marijuana, Urine Neg (Neg); Methadone, Urine Neg (Neg); Opiate, Urine Neg (Neg); Phencyclidine, Urine Neg (Neg)
[2023-04-20] MEDS: GABAPENTIN 600 MG TAB PO ONE (01:00)
[2023-04-20] MEDS: INSULIN ASPART PER UNIT CHARGE SC SCH (01:00)
[2023-04-20] MEDS: GABAPENTIN 600 MG TAB PO SCH ×2 (05:52→20:22)
[2023-04-20 06:50] LABS: Calcium 8.2 mg/dl (8.6-10.3); Creatinine Clr Calc Pharmacy 106.5 ml/min; Est GFR (African American) 121.4 ml/min; Est GFR (Non-African American) 104.7 ml/min; Magnesium 1.9 mg/dl (1.7-2.4)
[2023-04-20 06:56] LABS: Basophils # (auto) 0.01 K/uL (0.00-0.20); Basophils % (auto) 0.2 %; Eosinophils # (auto) 0.01 K/uL (0.00-0.50); Eosinophils % (auto) 0.2 %; Hematocrit (blood only) 37.9 % (42.0-52.0); Hemoglobin 12.1 g/dl (14.0-18.0); Immature Granulocytes # (auto) 0.01 K/uL (0.01-0.20); Immature Granulocytes % (auto) 0.2 %; Lymphocytes # (auto) 0.76 K/uL (1.20-3.40); Mean Corpuscular Hemoglobin 27.2 pg (25.0-34.0); Mean Corpuscular Hgb Conc 31.9 g/dL (32.0-36.0); Mean Corpuscular Volume 85.2 fL (80.0-100.0); Mean Platelet Volume 9.7 fL (9.4-12.4); Monocytes % (auto) 7.9 %; Neutrophils # (auto) 3.88 K/uL (1.40-6.50); Neutrophils % (auto) 76.5 %; Platelet Count 290 K/uL (130-400); RDW Coefficient of Variation 15.9 % (11.5-14.5); RDW Standard Deviation 49.1 fL (36.4-46.3); Red Blood Count 4.45 M/uL (4.70-6.10); White Blood Count 5.07 K/ul (4.8-10.8)
--- NOTE | 2023-04-20 07:10 | Electrocardiogram Report ---
Test Reason : Blood Pressure : / mmHG Vent. Rate : 134 BPM Atrial Rate : 134 BPM P-R Int : 134 ms QRS Dur : 084 ms QT Int : 288 ms P-R-T Axes : 049 083 -43 degrees QTc Int : 430 ms Sinus tachycardia Abnormal ECG When compared with ECG of 18-APR-2023 20:13, T wave inversion now evident in Inferior leads Confirmed by Chris Crespo ([id number]) on 04/20/2023 7:10:09 AM Referred By: REFERRED SELF Confirmed By:Prabhu Crespo
[2023-04-20] MEDS: ENOXAPARIN INJ 40 MG/0.4 ML SYR SQ SCH (08:51)
[2023-04-20] MEDS: MULTIVITAMIN TAB PO SCH (08:52)
[2023-04-20] MEDS: THIAMINE HCL 100 MG TAB PO SCH (08:52)
[2023-04-20] MEDS: FOLIC ACID 1 MG TAB PO SCH (08:52)
[2023-04-20] MEDS: lisinopril 40 MG TAB PO SCH (08:54)
[2023-04-20] MEDS: LANTUS PER UNIT CHARGE SQ SCH (08:59)
[2023-04-20] MEDS: NICOTINE 21 MG/24 HR TDSY TD SCH (09:54)
--- NOTE | 2023-04-20 14:20 | Hospitalist Progress Note ---
Date of Service April 20, 2023 Assessment & Plan (1) Alcohol withdrawal: Plan: Alcohol withdrawal Alcohol abuse disorder Alcohol level: 270 LFTs within normal limits Monitor for withdrawal seizure/fall precautions Continue gabapentin, Ativan PRN Continue thiamine, folic acid Counseled to quit drinking HTN Continue lisinopril Monitor BP Uncontrolled DM II A1c 13.7 H/O noncompliance Continue insulin while hospitalized Monitor BGs Chronic anemia Hb at baseline Monitor Mood disorder Severe depression Not on meds Ongoing tobacco abuse Nicotine patch Counseled to quit smoking DVT Px: Lovenox SQ Code Status Full code Admission and Anticipated Discharge Date Admission Date: April 19, 2023 Subjective Patient is seen and examined at bedside States having headache and feels very tired Also feels anxious Denies any chest pain, dyspnea, dizziness, abd pain No other complaints Review of Systems Review of Systems: All systems reviewed & are unremarkable except as noted in Subjective Physical Exam Physical Exam: Physical Exam: Vitals signs as noted above General Appearance:Moderately built and nourished, no apparent distress, + anxious Head: normocephalic, Atraumatic Eyes: normal inspection, EOMI Neck: supple, Trachea midline Respiratory/Chest: Normal breath sounds, CTA, No accessory muscle use Cardiovascular: S1, S2, No murmur Abdomen/GI:Soft, Non tender, Bowel sounds present Extremities/Musculoskeletal:normal inspection, no edema,+Tremor Neurologic/Psych:AAOX3, grossly no focal neurological deficits Skin: normal color, warm Results & Data Results & Data Vital Signs (Past 12 Hours) Vital Signs Temp Pulse Pulse Resp BP Pulse Ox O2 Del Method 04/20/23 11:37 37.4 C 98 H 18 128/75 96 Room Air 04/20/23 08:04 37.2 C 107 H 20 147/89 H 94 Room Air 04/20/23 07:21 103 H 04/20/23 04:00 37.3 C 115 H 20 143/85 H 96 Room Air 04/20/23 03:12 118 H 04/20/23 03:07 Room Air Laboratory Results Short CBC 04/19/23 04/20/23 Range/Units 18:00 05:18 WBC 9.06 5.07 (4.8-10.8) K/ul Hgb 15.0 12.1 L D (14.0-18.0) g/dl Hct 47.2 37.9 L (42.0-52.0) % Plt Count 343 290 (130-400) K/uL BMP 04/19/23 04/20/23 18:00 05:18 Sodium 136 136 Potassium 4.2 4.0 Chloride 99 104 Carbon Dioxide 22 26 BUN 11 9 Creatinine 0.99 0.75 Glucose 275 H 127 H Calcium 9.5 8.2 L Liver Function 04/19/23 Range/Units 18:00 Total Bilirubin 0.3 (0.2-1.0) mg/dl Direct Bilirubin 0.1 (0-0.2) mg/dl AST 28 (13-39) U/L ALT 41 (7-52) U/L Alkaline Phosphatase 52 (34-104) U/L Albumin 4.4 (3.4-5.0) gm/dl Urine 04/19/23 Range/Units 23:00 Urine Color Yellow Urine Appearance Clear (Clear) Urine pH 5.0 (4.5-7.5) Ur Specific [place] 1.019 (1.000-1.030) Urine Protein Negative (Negative) Urine Glucose (UA) 3+ H (Negative)
[2023-04-20] MEDS: ACETAMINOPHEN 325 MG TAB PO PRN (20:22)
[2023-04-21 06:35] LABS: Hemoglobin 12.5 g/dl (14.0-18.0); Mean Corpuscular Hemoglobin 27.2 pg (25.0-34.0); Mean Corpuscular Hgb Conc 32.1 g/dL (32.0-36.0); Mean Corpuscular Volume 84.8 fL (80.0-100.0); Mean Platelet Volume 9.3 fL (9.4-12.4); Platelet Count 298 K/uL (130-400); RDW Coefficient of Variation 15.7 % (11.5-14.5); RDW Standard Deviation 48.5 fL (36.4-46.3); White Blood Count 5.78 K/ul (4.8-10.8)
[2023-04-21 07:02] LABS: BUN Creatinine Ratio 14.7 (10-20); Calcium 8.9 mg/dl (8.6-10.3); Creatinine Clr Calc Pharmacy 115.2 ml/min; Est GFR (African American) 121.4 ml/min; Est GFR (Non-African American) 104.7 ml/min; Potassium 4.2 mmol/L (3.5-5.1)
[2023-04-21] MEDS ORDERED: cloNIDine HCL 0.1 MG TAB PO PRN (14:37)
--- NOTE | 2023-04-21 14:38 | Hospitalist Progress Note ---
Date of Service April 21, 2023 Assessment & Plan (1) Alcohol withdrawal: Plan: Alcohol withdrawal Alcohol abuse disorder Alcohol level: 270 LFTs within normal limits Monitor for withdrawal seizure/fall precautions Continue gabapentin, Ativan PRN Continue thiamine, folic acid Counseled to quit drinking Continue alcohol withdrawal protocol HTN Continue lisinopril Monitor BP BP elevated likely due to withdrawal Clonidine as needed Uncontrolled DM II A1c 13.7 H/O noncompliance Continue insulin while hospitalized Monitor BGs Chronic anemia Hb at baseline Monitor Mood disorder Severe depression Not on meds Ongoing tobacco abuse Nicotine patch Counseled to quit smoking DVT Px: Lovenox SQ Code Status Full code Admission and Anticipated Discharge Date Admission Date: April 19, 2023 Subjective Patient is seen and examined at bedside States feeling better today Less anxious today Denies any significant tremor No new complaints Blood pressure elevated today Denies any chest pain, dyspnea, dizziness, abd pain Review of Systems Review of Systems: All systems reviewed & are unremarkable except as noted in Subjective Physical Exam Physical Exam: Physical Exam: Vitals signs as noted above General Appearance:Moderately built and nourished, no apparent distress, + anxious Head: normocephalic, Atraumatic Eyes: normal inspection, EOMI Neck: supple, Trachea midline Respiratory/Chest: Normal breath sounds, CTA, No accessory muscle use Cardiovascular: S1, S2, No murmur Abdomen/GI:Soft, Non tender, Bowel sounds present Extremities/Musculoskeletal:normal inspection, no edema,+Tremor Neurologic/Psych:AAOX3, grossly no focal neurological deficits Skin: normal color, warm Results & Data Results & Data Vital Signs (Past 12 Hours) Vital Signs Temp Pulse Resp BP Pulse Ox O2 Del Method 04/21/23 11:09 36.9 C 93 H 18 160/98 H 98 Room Air 04/21/23 07:32 37.1 C 76 18 145/85 H 96 Room Air 04/21/23 05:51 36.7 C 58 L 20 147/93 H 97 Room Air Laboratory Results Short CBC 04/21/23 Range/Units 05:56 WBC 5.78 (4.8-10.8) K/ul Hgb 12.5 L (14.0-18.0) g/dl Hct 39.0 L (42.0-52.0) % Plt Count 298 (130-400) K/uL BMP 04/21/23 05:56 Sodium 136 Potassium 4.2 Chloride 102 Carbon Dioxide 26 BUN 11 Creatinine 0.75 Glucose 212 H Calcium 8.9
[2023-04-21] MEDS: hydrOXYzine HCl 10 MG TAB PO PRN (21:45)
[2023-04-22] MEDS: GABAPENTIN 600 MG TAB PO SCH (00:33)
[2023-04-22 06:38] LABS: Hemoglobin 12.3 g/dl (14.0-18.0); Mean Corpuscular Hemoglobin 27.2 pg (25.0-34.0); Mean Corpuscular Hgb Conc 31.5 g/dL (32.0-36.0); Mean Corpuscular Volume 86.1 fL (80.0-100.0); Mean Platelet Volume 9.3 fL (9.4-12.4); Platelet Count 307 K/uL (130-400); RDW Coefficient of Variation 15.4 % (11.5-14.5); RDW Standard Deviation 48.4 fL (36.4-46.3); Red Blood Count 4.53 M/uL (4.70-6.10); White Blood Count 5.58 K/ul (4.8-10.8)
[2023-04-22 06:39] LABS: BUN Creatinine Ratio 9.5 (10-20); Calcium 9.4 mg/dl (8.6-10.3); Creatinine Clr Calc Pharmacy 95.1 ml/min; Est GFR (African American) 115.9 ml/min; Magnesium 1.8 mg/dl (1.7-2.4); Potassium 4.4 mmol/L (3.5-5.1)
--- NOTE | 2023-04-22 12:33 | Hospitalist Progress Note ---
Date of Service April 22, 2023 Assessment & Plan (1) Alcohol withdrawal: Plan: Alcohol withdrawal Alcohol abuse disorder Alcohol level: 270 LFTs within normal limits Monitor for withdrawal seizure/fall precautions Continue gabapentin, Ativan PRN Continue thiamine, folic acid Counseled to quit drinking Continue alcohol withdrawal protocol Clinically improving Plan to be discharged home today HTN Continue lisinopril Monitor BP BP elevated likely due to withdrawal Clonidine as needed Uncontrolled DM II A1c 13.7 H/O noncompliance Continue insulin while hospitalized Monitor BGs Chronic anemia Hb at baseline Monitor Mood disorder Severe depression Not on meds Ongoing tobacco abuse Nicotine patch Counseled to quit smoking DVT Px: Lovenox SQ Code Status Full code Disposition Home Admission and Anticipated Discharge Date Admission Date: April 19, 2023 Subjective Patient is seen and examined at bedside States feeling well today No new complaints Denies any chest pain, dyspnea, dizziness, abd pain Plan to be discharged home today Review of Systems Review of Systems: All systems reviewed & are unremarkable except as noted in Subjective Physical Exam Physical Exam: Physical Exam: Vitals signs as noted above General Appearance:Moderately built and nourished, no apparent distress Head: normocephalic, Atraumatic Eyes: normal inspection, EOMI Neck: supple, Trachea midline Respiratory/Chest: Normal breath sounds, CTA, No accessory muscle use Cardiovascular: S1, S2, No murmur Abdomen/GI:Soft, Non tender, Bowel sounds present Extremities/Musculoskeletal:normal inspection, no edema Neurologic/Psych:AAOX3, grossly no focal neurological deficits Skin: normal color, warm Results & Data Results & Data Vital Signs (Past 12 Hours) Vital Signs Temp Pulse Pulse Resp BP Pulse Ox O2 Del Method 04/22/23 12:30 36.7 C 86 16 144/90 H 96 04/22/23 11:17 36.7 C 86 16 144/90 H 96 Room Air 04/22/23 07:32 36.9 C 69 16 149/86 H 99 Room Air 04/22/23 05:59 64 04/22/23 04:21 36.7 C 68 18 134/81 97 Room Air Laboratory Results Short CBC 04/22/23 Range/Units 05:53 WBC 5.58 (4.8-10.8) K/ul Hgb 12.3 L (14.0-18.0) g/dl Hct 39.0 L (42.0-52.0) % Plt Count 307 (130-400) K/uL [facility] 04/22/23 05:53 Sodium 137 Potassium 4.4 Chloride 103 Carbon Dioxide 30 BUN 8 Creatinine 0.84 Glucose 152 H Calcium 9.4
--- NOTE | 2023-04-22 13:16 | Discharge Summary ---
Date of Service April 22, 2023 Admission HPI Per Admitting Provider History obtained from patient and records. Medical history significant for HTN, DM2 insulin requiring, chronic anemia (baseline hemoglobin of 13), mood disorder, ongoing tobacco/alcohol abuse. 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 Two admissions this month for alcohol withdrawal. Patient signed out AGAINST MEDICAL ADVICE during both admissions. Unable to take blood pressure and insulin medications on discharge due to lack of supplies and homelessness. Patient returned to ER after leaving hospital 2 days ago but subsequently discharged. Worsening depression since leaving the hospital 2 days ago. Denies suicidality. Continued alcohol consumption. Patient returned to ER tonight due to feeling worse. No headache, no chest pain, no SOB, no abdominal pain. Some nausea and bilious emesis. Patient wants help to stop drinking to get better. 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 Admission Exam Per Admitting Provider GENERAL: Slightly anxious, no respiratory distress SKIN: Pallor, warm HEENT: Partial alopecia, pale palpebral conjunctivae, no ptosis, dry buccal mucosa NECK : Supple, no tenderness CHEST : CTA, no tenderness HEART : Tachycardic, no obvious murmurs ABDOMEN: Some distention, nontender EXTREMITIES : No LE swelling/tenderness, no other conspicuous deformities noted NEUROLOGIC : Coherent, no facial asymmetry, no gross focality Principal Diagnosis Alcohol withdrawal Alcohol abuse disorder Uncontrolled DM II Discharge Data Allergies Allergy/AdvReac Type Severity Reaction Status Date / Time Fish Containing Products AdvReac Verified 04/10/23 11:57 Consultations 04/19/23 21:22 ED Decision to Admit Stat Procedures Performed Laboratory Results WBC 5.58 K/ul (4.8-10.8) 04/22/23 05:53 RBC 4.53 M/uL (4.70-6.10) L 04/22/23 05:53 Hgb 12.3 g/dl (14.0-18.0) L 04/22/23 05:53 Hct 39.0 % (42.0-52.0) L 04/22/23 05:53 MCV 86.1 fL (80.0-100.0) 04/22/23 05:53 MCH 27.2 pg (25.0-34.0) 04/22/23 05:53 MCHC 31.5 g/dL (32.0-36.0) L 04/22/23 05:53 RDW Std Deviation 48.4 fL (36.4-46.3) H 04/22/23 05:53 RDW Coeff of [place] 15.4 % (11.5-14.5) H 04/22/23 05:53 Plt Count 307 K/uL (130-400) 04/22/23 05:53 MPV 9.3 fL (9.4-12.4) L 04/22/23 05:53 Immature Gran % (Auto) 0.2 % 04/20/23 05:18 Neut % (Auto) 76.5 % 04/20/23 05:18 Lymph % (Auto) 15.0 % 04/20/23 05:18 [place] % (Auto) 7.9 % 04/20/23 05:18 Eos % (Auto) 0.2 % 04/20/23 05:18 Baso % (Auto) 0.2 % 04/20/23 05:18 Neut # (Auto) 3.88 K/uL (1.40-6.50) 04/20/23 05:18 Lymph # (Auto) 0.76 K/uL (1.20-3.40) L 04/20/23 05:18 [place] # (Auto) 0.40 K/uL (0.11-0.59) 04/20/23 05:18 Eos # (Auto) 0.01 K/uL (0.00-0.50) 04/20/23 05:18 Baso # (Auto) 0.01 K/uL (0.00-0.20) 04/20/23 05:18 Immature Gran # (Auto) 0.01 K/uL (0.01-0.20) 04/20/23 05:18 PT 9.9 Seconds (9.0-12.0) 04/19/23 18:00 INR 0.9 (0.9-1.1) 04/19/23 18:00 Sodium 137 mmol/L (136-145) 04/22/23 05:53 Potassium 4.4 mmol/L (3.5-5.1) 04/22/23 05:53 Chloride 103 mmol/L (98-107) 04/22/23 05:53 Carbon Dioxide 30 mmol/L (21-32) 04/22/23 05:53 Anion Gap 4 (3-11) 04/22/23 05:53 BUN 8 mg/dl (6-23) 04/22/23 05:53 Creatinine 0.84 mg/dl (0.6-1.4) 04/22/23 05:53 Est Cr Clr Drug Dosing 95.1 ml/min 04/22/23 05:53 Est GFR ( Amer) 115.9 ml/min 04/22/23 05:53 Est GFR (Non-Af Amer) 100.0 ml/min 04/22/23 05:53 BUN/Creatinine Ratio 9.5 (10-20) L 04/22/23 05:53 Glucose 152 mg/dl (70-99(Fasting)) H 04/22/23 05:53 POC Glucose 213 mg/dl (70-99) H 04/22/23 12:07 Calcium 9.4 mg/dl (8.6-10.3) 04/22/23 05:53 Magnesium 1.8 mg/dl (1.7-2.4) 04/22/23 05:53 Total Bilirubin 0.3 mg/dl (0.2-1.0) 04/19/23 18:00 Direct Bilirubin 0.1 mg/dl (0-0.2) 04/19/23 18:00 AST 28 U/L (13-39) 04/19/23 18:00 ALT 41 U/L (7-52) 04/19/23 18:00 Alkaline Phosphatase 52 U/L (34-104) 04/19/23 18:00 Troponin I High Sens 4.6 pg/ml (0-20) 04/19/23 18:00 Total Protein 7.8 gm/dl (6.0-8.3) 04/19/23 18:00 Albumin 4.4 gm/dl (3.4-5.0) 04/19/23 18:00 Urine Color Yellow 04/19/23 23:00 Urine Appearance Clear (Clear) 04/19/23 23:00 Urine pH 5.0 (4.5-7.5) 04/19/23 23:00 Ur Specific [place] 1.019 (1.000-1.030) 04/19/23 23:00 Urine Protein Negative (Negative) 04/19/23 23:00 Urine Glucose (UA) 3+ (Negative) H 04/19/23 23:00 Urine Ketones Trace (Negative) H 04/19/23 23:00 Urine Blood Negative (Negative) 04/19/23 23:00 Urine Nitrite Negative (Negative) 04/19/23 23:00 Urine Bilirubin Negative (Negative) 04/19/23 23:00 Urine Urobilinogen Negative (Negative) 04/19/23 23:00 Ur Leukocyte Esterase Negative (Negative) 04/19/23 23:00 Salicylates < 3.0 mg/dl (3.0-30) L 04/19/23 20:49 Urine Opiates Screen Neg (Neg) 04/19/23 23:00 Ur Methadone, Qual Neg (Neg) 04/19/23 23:00 Acetaminophen < 3 ug/ml (10-30) L 04/19/23 20:49 Urine Barbiturates Neg (Neg) 04/19/23 23:00 Ur Phencyclidine (PCP) Neg (Neg) 04/19/23 23:00 U Amphetamin/Meth Scrn Neg (Neg) 04/19/23 23:00 MDMA (Ecstasy) Screen Neg (Neg) 04/19/23 23:00 U Benzodiazepines Scrn Pos (Neg) H 04/19/23 23:00 Ur Cocaine Metabolite Neg (Neg) 04/19/23 23:00 U Marijuana (THC) Screen Neg (Neg) 04/19/23 23:00 Ethyl Alcohol mg/dL 270.8 mg/dl (<10.0) H 04/19/23 18:00 Impressions Chest X-Ray 04/19/23 20:15 SINGLE VIEW CHEST CLINICAL HISTORY: Generalized weakness. FINDINGS: An AP, portable, semierect chest radiograph is compared to chest x-ray and chest CT dated 04/16/2023. Partially degraded The heart is mildly enlarged. The pulmonary vasculature is noncongested. There is mild elevation of the right hemidiaphragm. The lungs and pleural spaces are clear. No pneumothorax is seen. The bony thorax is grossly intact. IMPRESSION: No active disease in the chest. ACT 112: Negative or not required by law. Electronically signed by: Darrell Ardon M.D. 04/19/2023 10:32 PM Hospital Course (1) Alcohol withdrawal: Alcohol withdrawal Alcohol abuse disorder Alcohol level: 270 LFTs within normal limits Monitor for withdrawal seizure/fall precautions Continue gabapentin, Ativan PRN Continue thiamine, folic acid Counseled to quit drinking Continue alcohol withdrawal protocol Clinically improving Plan to be discharged home today HTN Continue lisinopril Monitor BP BP elevated likely due to withdrawal Clonidine as needed Uncontrolled DM II A1c 13.7 H/O noncompliance Continue insulin while hospitalized Monitor BGs Chronic anemia Hb at baseline Monitor Mood disorder Severe depression Not on meds Ongoing tobacco abuse Nicotine patch Counseled to quit smoking DVT Px: Lovenox SQ Code Status Full code Disposition Home Total Time Total Time Spent Total Time Spent (In Minutes): 50 minutes Discharge Plan Discharge Items Patient Disposition: Home - Self-Care Reason For Visit: ETOH WITHDRAWAL Discharge Diagnosis: Alcohol withdrawal Alcohol abuse disorder Uncontrolled DM II Activity: Per Instructions section Exercise/Sports: Gradually increase as tolerated Non-emergency contact: Primary Care Provider Call non-emergency contact if: you have any medication questions, your symptoms worsen, your pain is concerning for you and you have a fever Follow-up/Referrals: PCP,NO [Primary Care Provider] - Diet: Carb Consistent or DM2 and Heart Healthy Addtl Attending Provider Instructions: Follow-up with your primary care physician in 1 week as recommended -- Quit drinking alcohol as advised Seek immediate medical attention if your symptoms reoccur or worsen Please take all medications as instructed on discharge list below. Please call if you have any questions or problems. You can reach a [facility] hospitalist on duty at [facility] 24 hours a day by calling [phone] Pending Studies at Discharge: No Stand-Alone Forms: My [facility], Smoking Cessation Medications and DC Order Prescriptions: New folic acid 1 mg Tablet 1 mg PO QAM Qty: 30 0RF multivitamin with folic acid [Daily-Lennie (with folic acid)] 400 mcg Tablet 1 tab PO QAM Qty: 30 0RF (DME) needle (disp) 32 gauge 32 gauge x 5/16" needle See Rx Instructions .Route Qty: 100 0RF Rx Instructions: As directed Continued lisinopril 40 mg Tablet 40 mg PO DAILY insulin degludec [Tresiba FlexTouch U-100] 100 unit/mL (3 mL) insulin pen 40 unit subcut DAILY Qty: 15 0RF metformin 1,000 mg Tablet 1,000 mg PO [id number] Discharge Orders: Discharge Order (Routine); Ordered 04/22/23 Ordered By: Sebastian Guerrero Admission Data Admit Date/Time: 04/19/23 22:51 Attending Provider: Sebastian Guerrero Admit Provider: Harsha Mullen Primary Care Provider: PCP,NO Other Providers: Harsha Mullen Other Interventions: Discharge Summary Assessment (RN) Last Done: 04/22/23 12:30
[2023-04-22 14:51] LABS: 7-Aminoclonaz, Confirm NEGATIVE ng/mL (<25); Hydro-Alp Ur, GC/MS NEGATIVE ng/mL (<25); Hydroxyethylflurazepam, Conf NEGATIVE ng/mL (<50); Hydroxymidazolam Ur, GC/MS NEGATIVE ng/mL (<50); Hydroxytriazolam NEGATIVE ng/mL (<50); Lorazepam, Ur GC/MS 137 ng/mL (<50); Nordiazepam, Confirm NEGATIVE ng/mL (<50); Oxazepam Ur, GC/MS NEGATIVE ng/mL (<50); Temazepam, Confirm NEGATIVE ng/mL (<50)
[2023-04-23] MEDS ORDERED: GABAPENTIN 600 MG TAB PO SCH (12:00)
== END 2023-04-22 13:25 | disposition home or self-care (01) | DRG 897 ==
LOC: ED 17:34 → 2N 22:51